=== PATIENT | female | born 1995 | race Caucasian/White ===

== ENCOUNTER 2020-01-03 08:29 | Outpatient (CLI) | payer OTHER, SELFPAY ==
--- NOTE | 2020-01-03 08:48 | EST_ITS ---
Patient Info Name: Carolina Albright Age: 24 years : 1995 Gender: Female Ht: 68 in Wt: 195 lbs BSA: 2.08 m2 Exam Date: 01/03/2020 9:14 AM Exam Location: [facility] Patient Status: Outpatient Admit Date: 01/03/2020 Staff Ordering Physician: Aime Castellanos DO Ethnic Studies Professor: Jake Davis RDCS, RT Attending Provider: Aime Castellanos DO Exercise Technologist: Darling Allen RDCS Exercise Physician: Aime Castellanos DO Exam Type: CA stress echo Study Info Indications R07.9 - Chest pain, unspecified Treadmill exercise stress echocardiogram is performed. Summary 1. 1. Negative Selvin exercise stress test for ischemic ST changes by ECG criteria. 2. 2. Poor functional capacity, achieving 4 METs of workload. 3. 3. Baseline sinus tachycardia with rapid HR response to exercise. 4. 4. Appropriate HR recovery at 1 minute post exercise. 5. 5. Negative stress echocardiogram for ischemia by wall motion analysis. 6. 6. Patient informed of the above results. Stress Echo Findings Left Ventricle Appropriate increase in LV endocardial thickening with systole. Appropriate augmentation of contractility with systole. No wall motion abnormality. Left Ventricle Normal LV systolic function, no wall motion abnormality. Protocol: Selvin Stress ECG Details Stage: REST Duration (min): 8 min : 30 sec Speed (mph): 0.0 Grade (%): 0 HR (bpm): 109 SBP (mmHg): 114 DBP (mmHg): 81 METS: --- Stage: REST Duration (min): 14 min : 26 sec Speed (mph): 0.0 Grade (%): 0 HR (bpm): 128 SBP (mmHg): 114 DBP (mmHg): 81 METS: --- Stage: STAGE 1 Duration (min): 1 min : 0 sec Speed (mph): 1.7 Grade (%): 10 HR (bpm): 176 SBP (mmHg): 114 DBP (mmHg): 81 METS: --- Stage: STAGE 1 Duration (min): 2 min : 0 sec Speed (mph): 1.7 Grade (%): 10 HR (bpm): 182 SBP (mmHg): 114 DBP (mmHg): 81 METS: --- Stage: STAGE 1 Duration (min): 3 min : 0 sec Speed (mph): 1.7 Grade (%): 10 HR (bpm): 189 SBP (mmHg): 157 DBP (mmHg): 76 METS: --- Stage: RECOVERY Duration (min): 0 min : 59 sec Speed (mph): 0.0 Grade (%): 0 HR (bpm): 148 SBP (mmHg): 188 DBP (mmHg): 71 METS: --- Stage: RECOVERY Duration (min): 1 min : 59 sec Speed (mph): 0.0 Grade (%): 0 HR (bpm): 129 SBP (mmHg): 188 DBP (mmHg): 71 METS: --- Stage: RECOVERY Duration (min): 2 min : 59 sec Speed (mph): 0.0 Grade (%): 0 HR (bpm): 120 SBP (mmHg): 194 DBP (mmHg): 65 METS: --- Stage: RECOVERY Duration (min): 3 min : 59 sec Speed (mph): 0.0 Grade (%): 0 HR (bpm): 116 SBP (mmHg): 194 DBP (mmHg): 65 METS: --- Stage: RECOVERY Duration (min): 4 min : 59 sec Speed (mph): 0.0 Grade (%): 0 HR (bpm): 115 SBP (mmHg): 177 DBP (mmHg): 66 METS: --- Stage: RECOVERY Duration (min): 5 min : 59 sec Speed (mph): 0.0 Grade (%): 0 HR (bpm):
== END 2020-01-03 08:30 | disposition home or self-care (01) ==
PROVIDERS: PCP Family Medicine; Visit Provider Internal Medicine Cardiovascular Disease
DX: R07.9 Chest pain, unspecified (principal)
CPT/HCPCS: 93351

== ENCOUNTER 2021-03-05 08:35 | Outpatient (CLI) | payer OTHER, SELFPAY ==
[2021-03-05 19:05] LABS: Alanine Aminotransferase 14 U/L (4-35); Albumin Level 4.7 g/dL (3.5-5.1); Alkaline Phosphatase 79 U/L (38-126); Anion Gap 10 mmol/L (8-16); Aspartate Amino Transferase 19 U/L (14-36); Bilirubin,Total 0.4 mg/dL (0.2-1.3); Blood Urea Nitrogen 10 mg/dL (7-17); Calcium 9.6 mg/dL (8.4-10.2); Carbon Dioxide 26 mmol/L (22-30); Chloride 103 mmol/L (98-107); Cholesterol 227 mg/dL (0-200); Estimated Glomerular Filt Rate > 60; Glucose 61 mg/dL (65-110); HDL Direct 63 mg/dL; Potassium 4.5 mmol/L (3.4-5.0); Sodium 139 mmol/L (137-145); Triglycerides 59 mg/dL (<150)
[2021-03-05 19:15] LABS: LDL Cholesterol Direct 160 mg/dL
[2021-03-05 19:21] LABS: Free T4 Free Thyroxine 1.32 ng/mL (0.78-2.19)
[2021-03-05 19:36] LABS: Creatinine Urine 15.5 mg/dL
[2021-03-05 20:49] LABS: Microalbumin Urine Random < 6.0 mg/L (0-16.7)
== END 2021-03-05 08:36 | disposition home or self-care (01) ==
LOC: ANHBWCLAB 08:38
PROVIDERS: PCP Family Medicine; Referring Provider Internal Medicine Cardiovascular Disease; Visit Provider Nurse Practitioner Family
DX: E10.65 Type 1 diabetes mellitus with hyperglycemia (principal); E78.5 Hyperlipidemia, unspecified; E66.9 Obesity, unspecified
CPT/HCPCS: 36415; 80053; 80061; 82043; 82607; 84439; 84443

== ENCOUNTER → 2021-03-29 01:25 | Outpatient (CLI) | payer OTHER, SELFPAY ==
[2021-03-29 13:19] LABS: Influenza Control Positive
[2021-03-29 21:22] LABS: SARS-CoV-2 RNA PCR Positive
== END ==
PROVIDERS: PCP Family Medicine; Visit Provider Family Medicine
DX: R05.9 Cough, unspecified (principal); R68.89 Other general symptoms and signs; J02.9 Acute pharyngitis, unspecified; U07.1 COVID-19
CPT/HCPCS: 87804; C9803; U0003; U0005

== ENCOUNTER 2021-05-12 08:28 | Outpatient (CLI) | payer OTHER, SELFPAY ==
[2021-05-12 18:55] LABS: Add Urine Microscopic? YES; Appearance Urine Cloudy (Clear); Bilirubin Urine Negative (Negative); Blood Urine 3+ (Negative); Color Urine Yellow (Yellow); Glucose Urine UA 3+ mg/dL (Negative); Ketones Urine Negative (Negative); Leukocyte Esterase Ur Negative LEU/UL (NEGATIVE); Mucus Urine Few /lpf; Nitrate Urine Negative (Negative); Protein Urine 1+ mg/dL (Negative); RBC Urine >75 /hpf (0-2); Specific Grav Ur 1.018 (1.001-1.035); Squamous Epithelial Cell Urine Many /hpf (Few); Urobilinogen Urine Negative mg/dL (<2.0)
== END 2021-05-12 08:29 | disposition home or self-care (01) ==
LOC: ANHBWCLAB 08:31
PROVIDERS: PCP Family Medicine; Visit Provider Family Medicine
DX: D72.829 Elevated white blood cell count, unspecified (principal)
CPT/HCPCS: 81001; 87086; 87088

== ENCOUNTER 2021-07-21 08:44 | Outpatient (CLI) | payer OTHER, SELFPAY ==
[2021-07-21 18:54] LABS: Hematocrit 42.3 % (37.0-47.0); Hemoglobin 13.5 g/dL (12.0-15.0); Mean Corpuscular HGB Conc 31.9 g/dl (32-36); Mean Corpuscular Hemoglobin 29.2 pg (26-34); Mean Corpuscular Volume 91.4 fl (80-100); Mean Platelet Volume 9.6 fl (7.4-10.4); Platelet Count Result 512 k/mm3 (150-375); Red Blood Count 4.63 M/mm3 (4.2-5.4); Red Cell Distribution Width 13.2 % (11.5-14.5); White Blood Count 10.2 K/mm3 (4.5-10.0)
[2021-07-21 19:09] LABS: Add Urine Microscopic? YES; Appearance Urine Cloudy (Clear); Bacteria Urine Trace /hpf; Bilirubin Urine Negative (Negative); Blood Urine Negative (Negative); Color Urine Yellow (Yellow); Glucose Urine UA 2+ mg/dL (Negative); Ketones Urine Negative (Negative); Leukocyte Esterase Ur Negative LEU/UL (Negative); Mucus Urine Few /lpf; Nitrate Urine Negative (Negative); Protein Urine Negative (Negative); RBC Urine 0-2 /hpf (0-2); Specific Grav Ur 1.024 (1.001-1.035); Squamous Epithelial Cell Urine Occasional /hpf (Few); Urobilinogen Urine Negative mg/dL (<2.0); WBC Urine 0-3 /hpf
[2021-07-21 19:19] LABS: Alanine Aminotransferase 12 U/L (4-35); Albumin Level 4.9 g/dL (3.5-5.1); Alkaline Phosphatase 85 U/L (38-126); Anion Gap 12 mmol/L (8-16); Aspartate Amino Transferase 18 U/L (14-36); Bilirubin,Total 0.7 mg/dL (0.2-1.3); Blood Urea Nitrogen 14 mg/dL (7-17); Calcium 9.3 mg/dL (8.4-10.2); Carbon Dioxide 27 mmol/L (22-30); Chloride 97 mmol/L (98-107); Cholesterol 252 mg/dL (0-200); Estimated Glomerular Filt Rate > 60; Glucose 168 mg/dL (65-110); HDL Direct 46 mg/dL; Potassium 4.6 mmol/L (3.4-5.0); Sodium 136 mmol/L (137-145); Triglycerides 185 mg/dL (<150)
[2021-07-21 19:31] LABS: LDL Cholesterol Direct 143 mg/dL
== END 2021-07-21 08:45 | disposition home or self-care (01) ==
LOC: ANHBWCLAB 08:45
PROVIDERS: PCP Family Medicine; Visit Provider Internal Medicine Cardiovascular Disease
DX: E78.5 Hyperlipidemia, unspecified (principal); R30.0 Dysuria; R39.9 Unspecified symptoms and signs involving the genitourinary system
CPT/HCPCS: 36415; 80053; 80061; 81001; 85027; 87086; 87088

== ENCOUNTER 2021-09-29 09:42 | Outpatient (CLI) | payer OTHER, SELFPAY ==
[2021-09-29 19:46] LABS: Creatinine Urine 205.4 mg/dL
[2021-09-29 19:51] LABS: MALB Creatinine Ratio 50.8 mg/g (0-30); Microalbumin Urine Random 104.3 mg/L (0-16.7)
[2021-09-29 20:52] LABS: Free T4 Free Thyroxine 1.23 ng/mL (0.78-2.19)
== END 2021-09-29 09:43 | disposition home or self-care (01) ==
PROVIDERS: PCP Family Medicine; Visit Provider Nurse Practitioner Family
DX: E10.65 Type 1 diabetes mellitus with hyperglycemia (principal); K86.81 Exocrine pancreatic insufficiency; K31.89 Other diseases of stomach and duodenum; K31.84 Gastroparesis
CPT/HCPCS: 36415; 82043; 84439; 84443

== ENCOUNTER 2022-02-13 09:33 | Emergency (ER) | payer OTHER, SELFPAY ==
[2022-02-13 09:40] VITALS: BP 143/81; PULSE 112; RESP 20; TEMP 37.1; O2SAT 98
--- NOTE | 2022-02-13 11:15 | ED.SKABFB ---
HPI - Skin/Abscess/Foreign Bdy General Chief complaint: Skin/Abscess/Foreign Body Stated complaint: Burn/Finger Time Seen by Provider: 02/13/22 11:15 Source: patient, RN notes reviewed and old records reviewed Mode of arrival: ambulatory Limitations: no limitations History of Present Illness HPI narrative: 26 year old female presents to [facility] care with complaints of having 2 week burn to her right index finger with concern for infection to finger today. Patient reports that she has been seeing the wound care clinic for evaluation and treatment. Patient reports that when she changed the dressing today the dressing stuck and some skin pulled off of wound area of dorsal right index finger. Patient reports increased redness and pain to the wound today. Mild swelling of dorsal right index finger no drainage noted,appears tissue is scabbing with no acute warmth. Patient reports that she completed Keflex 2 days ago, yana any fevers, chills or sweats, is Type I diabetic. MD complaint: other (burn to right index finger with patient voicing concern of infection.) Onset (ago): week(s) (initial burn 2 weeks ago) Location: R hand (right dorsal index finger) Severity scale (1-10): 5 Treatments prior to arrival: prescription analgesic and other (cleansed with antibacterial soap and prescribed dressings) Related Data Home Medications Medication Instructions Recorded Confirmed sertraline 100 mg tablet (Zoloft) 200 mg PO DAILY 04/27/20 02/11/22 gabapentin 300 mg capsule 300 mg PO TID 05/12/21 02/11/22 calcium carbonate 200 mg calcium 200 mg PO BID 09/28/21 02/11/22 (500 mg) chewable tablet (Tums) Allergies Allergy/AdvReac Type Severity Reaction Status Date / Time codeine Allergy Unknown Unknown Verified 02/11/22 09:41 insulin glargine AdvReac Unknown severe Verified 02/11/22 09:41 [From Lantus U-100 Insulin] bruising Review of Systems Review of Systems: CONSTITUTIONAL: Denies fever, chills, or sweats. CARDIOVASCULAR: Denies chest pain, palpitations, or edema. RESPIRATORY: Denies cough or dyspnea. SKIN: Reports increasing redness swelling and pain to burn of dorsal aspect of right index finger, concern for infection MUSCULOSKELETAL: Denies joint pain or myalgia. NEUROLOGIC: Denies headache, numbness, or weakness. 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 Diabetic ketoacidosis Gastric dysmotility GERD (gastroesophageal reflux disease) H/O nephrolithotomy with removal of calculi H/O renal calculi Hepatomegaly Hyperlipidemia, unspecified (03/12/18) Long-term insulin use Nausea Nausea & vomiting Nexplanon in place Noncompliance Paronychia of left middle finger Thoracic sprain Type 1 diabetes mellitus with hyperglycemia, with long-term current use of insulin Type 1 diabetes mellitus without complication Surgical History Surgical History H/O endoscopy Family History Family History Grandparent Diabetes mellitus Family history of cardiovascular disease Cerebrovascular accident Family history of Alzheimer's disease Family history of lung cancer Mother Family history of mental disorder Depression Family history of multiple sclerosis Family history of cardiovascular disease Family history of chronic obstructive pulmonary disease Father Hypertension Other Family history of hearing loss Family history of malignant neoplasm Family history of obesity Family history of osteoporosis Social History Social History (R
== END 2022-02-13 11:55 | disposition home or self-care (01) ==
PROVIDERS: Emergency Provider Registered Nurse; PCP Family Medicine
DX: T23.221A Burn of second degree of single right finger (nail) except thumb, initial encounter (principal); X08.8XXA Exposure to other specified smoke, fire and flames, initial encounter; K21.9 Gastro-esophageal reflux disease without esophagitis; E10.9 Type 1 diabetes mellitus without complications; Z79.4 Long term (current) use of insulin; E78.5 Hyperlipidemia, unspecified
CPT/HCPCS: 99213; G0463

== ENCOUNTER 2022-03-03 07:27 | Outpatient (RCR) | payer OTHER, SELFPAY ==
[2022-02-04 09:07] VITALS: BMI 41.1
--- NOTE | 2022-02-14 07:48 | PCWOUND ---
TERRELL NOTE Patient called stating that she was seen in an urgent care over the weekend for her finger. She feels that it is infected, states she had to beg and cry for the urgent care to give her antibiotics and they told her to contact the wound center to be seen. Asked patient why she felt her finger was infected, patient states that it looks swollen and red and there's wetness like pus. Tried to explain to patient, that we at the wound clinic are just nurses and can't treat an infection in that sense, that if she truly thought there was an infection she needed to be seen at the ER or go see her PCP. Patient started crying and asking why everyone keeps passing her off and all she wants is to be healed, before I could explain any further, she hung up on me.
== END 2022-04-25 09:48 | disposition home or self-care (01) ==
LOC: ANHWOC 07:27
PROVIDERS: PCP Family Medicine; Visit Provider Family Medicine
DX: T23.0 Burn of unspecified degree of wrist and hand (principal); T23.00 Burn of unspecified degree of hand, unspecified site
CPT/HCPCS: 99211; 99213; G0463

== ENCOUNTER 2022-03-15 09:30 | Outpatient (RCR) | payer OTHER, SELFPAY ==
--- NOTE | 2022-02-22 09:25 | OTOPEVAL1 ---
Assessment and note entered by ERASTO Coleman/Leon Evaluation Information Assessment Status Evaluation Diagnosis Burn to R UE digits 1-3 Onset 01/30/2022 Subjective Information Patient presents to Outpatient OT following a second degree partial thickness burn to dorsal aspect of digits 1-3 on R hand. Index finger has experienced the worst of the burn over the dorsal aspect of the PIP joint. Patient reports since burning finger has gone to wound care. Patient report it has been difficult to complete daily tasks and use dominant R hand due to burn on index finger. Reported Pain Level Pain Score 4: Self Report Assessment OT Clinical Summary Carolina is a 26 year old R hand dominant female who presents to Outpatient OT following a 2nd degree burn to R digits 1-3 with digit 2 having the worst burn to dorsal aspect of PIP joint. Digits 1 and 3 are well healed at this time, no limitations. Patient has decreased air brake adjuster strength of R UE, decreased active ROM to digit 2. Patient would benefit from skilled OT for HEP instruction, UE exercise, manual therapy, modalities as indicated in order to optimize functional use of dominant R UE. Plan of Care Interventions Therapeutic Exercise,Manual Therapy,Therapeutic Activities,Hot Pack/Cold Pack,Ultrasound OT Services Indicated Yes These treatments will address the objective and functional deficits as defined above. The patient will be advanced safely and appropriately in order for the patient to progress towards his/her prior level of function. Additional exercises will be introduced and as well as a comprehensive home exercise program upon discharge, if needed, ?to ensure carryover of functional gains achieved in the clinic. This treatment plan has been reviewed and agreement upon by the patient.
--- NOTE | 2022-03-15 10:02 | OTOPDC ---
Assessment and note entered by Nery Valladares OTR/Leon Evaluation Information Assessment Status Discharge Diagnosis Burn to R UE digits 1-3 Subjective Information Patient presents to Outpatient OT following a second degree partial thickness burn to dorsal aspect of digits 1-3 on R hand. Index finger has experienced the worst of the burn over the dorsal aspect of the PIP joint. Since initial evaluation patient reports has completed HEP at home for the past 2 weeks and finger feels back to normal at this time. Reported Pain Level Pain Score 0: Self Report Assessment OT Clinical Summary Carolina is a 26 year old R hand dominant female who presents to Outpatient OT for re-evaluation following a 2nd degree burn to R digits 1-3 with digit 2 having the worst burn to dorsal aspect of PIP joint. Since initial evaluation, patient has completed HEP consistently and reports now has ROM and strength in hand back to normal. Patient demonstrated textile technical officer/fiore pinch strength WNL and active ROM of digit 2 WNL. Patient is to be discharged from skilled OT today independent with HEP. Patient is agreeable to plan. Plan of Care OT Services Indicated No
== END 2022-03-15 11:00 | disposition home or self-care (01) ==
LOC: ANHOT 09:30
PROVIDERS: PCP Family Medicine; Visit Provider Family Medicine
DX: T23.0 Burn of unspecified degree of wrist and hand (principal); T23.00 Burn of unspecified degree of hand, unspecified site
CPT/HCPCS: 97110; 97165

== ENCOUNTER 2022-03-29 11:27 | Outpatient (CLI) | payer OTHER, SELFPAY ==
--- NOTE | ~2022-03-29 | XR_ITS ---
Supine and upright views of the abdomen Clinical history: Constipation Findings: Bowel gas pattern is nonspecific. Moderate stool noted. No evidence for obstruction or free air. No abnormal mass lesion or calcification is seen. Osseous structures are intact. Impression: Moderate stool. Reviewed, dictated and finalized at [facility]. AGE BATTERY INSPECTOR AND TESTER Impression: Moderate stool.
[2022-03-29 18:57] LABS: Add Urine Microscopic? YES; Appearance Urine Slightly Cloudy (Clear); Bilirubin Urine Negative (Negative); Blood Urine Negative (Negative); Color Urine Yellow (Yellow); Glucose Urine UA Negative (Negative); Ketones Urine Trace mg/dL (Negative); Leukocyte Esterase Ur Trace LEU/UL (NEGATIVE); Nitrate Urine Negative (Negative); Protein Urine Negative (Negative); Specific Grav Ur 1.025 (1.001-1.035); Urobilinogen Urine 0.2 mg/dL (<2.0)
[2022-03-29 19:00] LABS: Bacteria Urine 2+ /hpf; Mucus Urine Moderate /lpf; RBC Urine 0-2 /hpf (0-2); Squamous Epithelial Cell Urine Moderate /hpf (Few)
[2022-03-29 21:58] LABS: Alanine Aminotransferase 17 U/L (6-35); Albumin Level 4.5 g/dL (3.5-5.1); Alkaline Phosphatase 103 U/L (38-126); Anion Gap 8 mmol/L (8-16); Aspartate Amino Transferase 45 U/L (14-36); Bilirubin,Total 0.4 mg/dL (0.2-1.3); Blood Urea Nitrogen 9 mg/dL (7-17); Calcium 8.9 mg/dL (8.4-10.2); Carbon Dioxide 27 mmol/L (22-30); Chloride 101 mmol/L (98-107); Estimated Glomerular Filt Rate > 60; Glucose 134 mg/dL (65-110); Potassium 4.1 mmol/L (3.4-5.0); Sodium 136 mmol/L (137-145)
== END 2022-03-29 11:28 | disposition home or self-care (01) ==
LOC: ANHBWCLAB 11:28
PROVIDERS: PCP Family Medicine; Visit Provider Family Medicine
DX: M54.9 Dorsalgia, unspecified (principal); R11.10 Vomiting, unspecified; R34 Anuria and oliguria; K59.00 Constipation, unspecified
CPT/HCPCS: 36415; 74019; 80053; 81001; 87086

== ENCOUNTER 2022-07-06 08:55 | Outpatient (CLI) | payer OTHER, SELFPAY ==
[2022-07-06 18:04] LABS: Basophils Absolute Auto 0.1 K/mm3 (0.0-0.1); Basophils Percent Auto 1.3 % (0.2-1.2); Eosinophils Absolute Auto 0.7 K/mm3 (0-0.3); Hematocrit 41.6 % (37.0-47.0); Hemoglobin 12.7 g/dL (12.0-15.0); Immature Granulocyte Absolute 0.03 K/mm3 (0.00-0.031); Immature Granulocyte Percent A 0.3 % (0-0.5); Lymphocytes Absolute Auto 2.39 K/mm3 (0.9-3.2); Lymphocytes Percent Auto 25.8 % (18.3-44.2); Mean Corpuscular HGB Conc 30.5 g/dl (32-36); Mean Corpuscular Hemoglobin 27.4 pg (26-34); Mean Corpuscular Volume 89.7 fl (80-100); Mean Platelet Volume 8.9 fl (7.4-10.4); Monocytes Absolute Auto 0.6 K/mm3 (0.1-0.6); Monocytes Percent Auto 6.4 % (2.6-8.5); Neutrophils Absolute Auto 5.5 K/mm3 (1.3-6.7); Neutrophils Percent Auto 59.2 % (45.5-73.1); Platelet Count Result 529 k/mm3 (150-375); Red Blood Count 4.64 M/mm3 (4.2-5.4); Red Cell Distribution Width 13.1 % (11.5-14.5); White Blood Count 9.3 K/mm3 (4.5-10.0)
== END 2022-07-06 08:56 | disposition home or self-care (01) ==
PROVIDERS: PCP Family Medicine; Visit Provider Family Medicine
DX: I10 Essential (primary) hypertension (principal); K21.9 Gastro-esophageal reflux disease without esophagitis; F41.9 Anxiety disorder, unspecified; F31.9 Bipolar disorder, unspecified; E78.5 Hyperlipidemia, unspecified; E66.9 Obesity, unspecified; E10.65 Type 1 diabetes mellitus with hyperglycemia
CPT/HCPCS: 36415; 85025

== ENCOUNTER 2022-09-28 08:50 | Outpatient (CLI) | payer OTHER, SELFPAY ==
--- NOTE | ~2022-09-28 | XR_ITS ---
Right Shoulder Technique: AP and scapular Y views were obtained. Clinical History: Pain Findings: No fracture or dislocation is seen. Osseous alignment is anatomic. The glenohumeral and acr omioclavicular joint spaces are preserved. Soft tissues are unremarkable. Impression: Unremarkable right shoulder radiographs. Reviewed, dictated and finalized at [facility]. Impression: Unremarkable right shoulder radiographs.
--- NOTE | ~2022-09-28 | XR_ITS ---
Cervical Spine: AP, lateral, open-mouth views Clinical History: Pain Findings: The normal lordotic curve is maintained. No fracture identified. 4 mm anterolisthesis of C5 over C6 present. The intervertebral disc spaces are well maintained. Pre-vertebral soft tissues are unremarkable. Impression: 4 mm anterolisthesis of C5 over C6. Reviewed, dictated and finalized at [facility]. Impression: 4 mm anterolisthesis of C5 over C6.
== END 2022-09-28 08:51 | disposition home or self-care (01) ==
PROVIDERS: PCP Family Medicine; Visit Provider Family Medicine
DX: M54.2 Cervicalgia (principal); M25.511 Pain in right shoulder
CPT/HCPCS: 72040; 73030

== ENCOUNTER 2022-12-01 07:26 | Outpatient (CLI) | payer OTHER, SELFPAY ==
[2022-12-01 19:41] LABS: Appearance Urine Cloudy (Clear); Bacteria Urine 1+ /hpf; Bilirubin Urine Negative (Negative); Blood Urine Negative (Negative); Color Urine Yellow (Yellow); Glucose Urine UA 1+ mg/dL (Negative); Ketones Urine Trace mg/dL (Negative); Leukocyte Esterase Ur 2+ LEU/UL (NEGATIVE); Mucus Urine Present /lpf; Need Manual Microscopic Reviewed; Nitrate Urine Negative (Negative); Protein Urine Trace mg/dL (Negative); RBC Urine 0-2 /hpf (0-2); Specific Grav Ur 1.024 (1.001-1.035); Squamous Epithelial Cell Urine Moderate /hpf (Few); Urobilinogen Urine 0.2 mg/dL (<2.0); pH Urine 5.5 (5.0-9.0)
[2022-12-01 19:43] LABS: Add Urine Microscopic? YES
== END 2022-12-01 07:27 | disposition home or self-care (01) ==
LOC: ANHBWCLAB 07:27
PROVIDERS: PCP Family Medicine; Visit Provider Family Medicine
DX: N30.90 Cystitis, unspecified without hematuria (principal); R56.9 Unspecified convulsions; F31.9 Bipolar disorder, unspecified; F41.9 Anxiety disorder, unspecified
CPT/HCPCS: 81001; 87086; 87088

== ENCOUNTER 2023-01-09 08:31 | Outpatient (CLI) | payer OTHER, SELFPAY ==
[2023-01-09 19:34] LABS: MALB Creatinine Ratio 20.1 mg/g (0-30); Microalbumin Urine Random 34.2 mg/L (0-16.7)
[2023-01-09 19:56] LABS: Cholesterol 257 mg/dL (0-200); HDL Direct 44 mg/dL; Triglycerides 184 mg/dL (<150)
[2023-01-09 20:06] LABS: LDL Cholesterol Direct 151 mg/dL
== END 2023-01-09 08:32 | disposition home or self-care (01) ==
PROVIDERS: PCP Family Medicine; Visit Provider Internal Medicine Endocrinology, Diabetes & Metabolism
DX: E10.65 Type 1 diabetes mellitus with hyperglycemia (principal); Z46.81 Encounter for fitting and adjustment of insulin pump
CPT/HCPCS: 36415; 80061; 82043; 84443

== ENCOUNTER 2023-04-07 14:29 | Outpatient (CLI) | payer OTHER, SELFPAY ==
--- NOTE | ~2023-04-07 | US_ITS ---
EXAMINATION: US pelvic complete DATE: 04/07/2023 15:18 INDICATION: R19.00 - Intra-abdominal and pelvic swelling, mass and norberto... TECHNIQUE: Multiple transabdominal sonographic images of the pelvis were obtained. COMPARISON: 10/25/2011 FINDINGS: Uterus: 7.8 x 2.5 x 3.7 cm. Anteverted. Endometrial complex measures 14 mm. Right Ovary: 4.1 x 1.9 x 3.1 cm. Vascular flow is present. 2.2 cm simple cyst. Left Ovary: 2.8 x 1.4 x 2.0 cm. Vascular flow is present. No adnexal mass. There is no free fluid in the pelvis. IMPRESSION: Normal pelvic sonogram findings. Reviewed, dictated and finalized at location K. EM ARCHIVE ANALYST
== END 2023-04-07 14:30 | disposition home or self-care (01) ==
LOC: ANHIMG 14:31
PROVIDERS: PCP Family Medicine; Visit Provider Registered Nurse
DX: R19.00 Intra-abdominal and pelvic swelling, mass and lump, unspecified site (principal)
CPT/HCPCS: 76856

== ENCOUNTER 2023-04-18 07:49 | Outpatient (CLI) | payer OTHER, SELFPAY ==
--- NOTE | ~2023-04-18 | NM_ITS ---
EXAM: NM gastric emptying study DATE: 04/18/2023 13:17 OFFICE SPECIALIST INDICATION: Nausea. Reflux. Regurgitation. TECHNIQUE: A gastric emptying study was performed using the methodology of Kelvin BOSWELL, et al. J Nucl Med 2007; 48:568-572. The patient was given a meal consisting of 2 scrambled eggs labeled with 0.98 mCi Tc-99m sulfur colloid, 2 slices of toast, two packages of jam, and approximately 120 mL of water. Simultaneous anterior and posterior 1-min images of the abdomen were obtained with the patient supin e at multiple time points over a total period of 4 hours. The geometric mean of anterior and posterio r views was determined, and the percentage retention was calculated for each time point. COMPARISON: None. FINDINGS: Gastric retention of the radiotracer-labeled meal was 44%, 25%, and 3% at the 1-hour, 2-ho ur, and 4-hour time points, respectively. With this technique, apparent rapid gastric emptying is sug gested by <30% gastric retention at 1 hour. Delayed gastric emptying is defined by gastric retention of >90% at 1 hour, >60% retention at 2 hours, or >10% retention at 4 hours. IMPRESSION: 1. Normal gastric emptying. Reviewed, dictated and finalized at location L. CE SPECIALIST IMPRESSION: 1. Normal gastric emptying.
== END 2023-04-18 07:50 | disposition home or self-care (01) ==
PROVIDERS: PCP Family Medicine; Visit Provider Nurse Practitioner
DX: R11.0 Nausea (principal); E10.65 Type 1 diabetes mellitus with hyperglycemia; K21.9 Gastro-esophageal reflux disease without esophagitis
CPT/HCPCS: 78264; A9541

== ENCOUNTER 2023-07-04 10:58 | Outpatient (CLI) | payer OTHER, SELFPAY ==
[2023-07-04 11:53] LABS: Monoscreen Negative (Negative); Negative Monotest Control Negative (Negative); Positive Monotest Control Positive (Positive)
[2023-07-04 12:02] LABS: Strep Group A RT-PCR NOT DETECTED (Negative)
[2023-07-04 12:13] LABS: Influenza A QL RT-PCR Negative (Negative); Influenza B QL RT-PCR Negative (Negative); RSV RNA, RT-PCR Negative (Negative); SARS-CoV-2 RNA PCR Negative (Negative)
== END 2023-07-04 10:59 | disposition home or self-care (01) ==
LOC: ANHLAB 10:59
PROVIDERS: PCP Family Medicine; Visit Provider Nurse Practitioner Family
DX: J02.9 Acute pharyngitis, unspecified (principal); Z20.822 Contact with and (suspected) exposure to COVID-19
CPT/HCPCS: 36415; 86308; 87637; 87651

== ENCOUNTER 2023-08-17 10:11 | Outpatient (CLI) | payer OTHER, SELFPAY ==
[2023-08-17 19:50] LABS: Hematocrit 43.3 % (37.0-47.0); Hemoglobin 13.3 g/dL (12.0-15.0); Mean Corpuscular HGB Conc 30.7 g/dl (32-36); Mean Corpuscular Hemoglobin 28.7 pg (26-34); Mean Corpuscular Volume 93.3 fl (80-100); Mean Platelet Volume 9.3 fl (7.4-10.4); Platelet Count Result 420 k/mm3 (150-375); Red Blood Count 4.64 M/mm3 (4.2-5.4); Red Cell Distribution Width 13.2 % (11.5-14.5); White Blood Count 5.4 K/mm3 (4.5-10.0)
[2023-08-17 20:03] LABS: Alanine Aminotransferase 149 U/L (6-35); Albumin Level 4.7 g/dL (3.5-5.1); Alkaline Phosphatase 80 U/L (38-126); Anion Gap 8 mmol/L (4-12); Aspartate Amino Transferase 123 U/L (14-36); Bilirubin,Total 0.6 mg/dL (0.2-1.3); Blood Urea Nitrogen 12 mg/dL (7-17); Calcium 9.3 mg/dL (8.4-10.2); Carbon Dioxide 26 mmol/L (22-30); Chloride 103 mmol/L (98-107); Cholesterol 252 mg/dL (0-200); Estimated Glomerular Filt Rate > 60; Glucose 87 mg/dL (65-110); HDL Direct 52 mg/dL; Potassium 5.2 mmol/L (3.4-5.0); Sodium 137 mmol/L (137-145); Triglycerides 107 mg/dL (<150)
[2023-08-17 20:13] LABS: LDL Cholesterol Direct 148 mg/dL
[2023-08-17 20:21] LABS: Creatinine Urine 60.1 mg/dL
[2023-08-17 20:25] LABS: MALB Creatinine Ratio 10.6 mg/g (0-30); Microalbumin Urine Random 6.4 mg/L (0-16.7)
[2023-08-17 20:45] LABS: Free T4 Free Thyroxine 1.13 ng/mL (0.78-2.19); Vitamin D 25 Hydroxy 15.8 ng/mL
== END 2023-08-17 10:12 | disposition home or self-care (01) ==
LOC: ANHBWCLAB 10:14
PROVIDERS: PCP Family Medicine; Visit Provider Nurse Practitioner Family
DX: E66.01 Morbid (severe) obesity due to excess calories (principal); E78.5 Hyperlipidemia, unspecified; E11.42 Type 2 diabetes mellitus with diabetic polyneuropathy; F41.9 Anxiety disorder, unspecified; G40.909 Epilepsy, unspecified, not intractable, without status epilepticus; M54.2 Cervicalgia; R06.6 Hiccough
CPT/HCPCS: 36415; 80053; 80061; 82043; 82306; 82607; 84439; 84443; 85027

== ENCOUNTER 2023-08-30 08:32 | Outpatient (CLI) | payer OTHER, SELFPAY ==
[2023-08-30 20:48] LABS: Alanine Aminotransferase 52 U/L (6-35); Albumin Level 4.6 g/dL (3.5-5.1); Alkaline Phosphatase 72 U/L (38-126); Anion Gap 9 mmol/L (4-12); Aspartate Amino Transferase 56 U/L (14-36); Bilirubin,Total 0.7 mg/dL (0.2-1.3); Blood Urea Nitrogen 11 mg/dL (7-17); Calcium 9.4 mg/dL (8.4-10.2); Carbon Dioxide 30 mmol/L (22-30); Chloride 102 mmol/L (98-107); Estimated Glomerular Filt Rate > 60; Glucose 57 mg/dL (65-110); Sodium 141 mmol/L (137-145)
[2023-08-30 21:19] LABS: HAV RESULT Negative (Negative); Hepatitis B Core IgM Result Negative (Negative)
[2023-08-30 21:32] LABS: Hepatitis C Virus Antibody Negative (Negative)
[2023-08-30 22:05] LABS: Hepatitis B Surface Antigen Negative (Negative)
== END 2023-08-30 08:33 | disposition home or self-care (01) ==
LOC: ANHBWCLAB 08:33
PROVIDERS: PCP Family Medicine; Visit Provider Family Medicine
DX: R74.8 Abnormal levels of other serum enzymes (principal); E87.5 Hyperkalemia; G40.909 Epilepsy, unspecified, not intractable, without status epilepticus
CPT/HCPCS: 36415; 80048; 80074; 80076; 82977

== ENCOUNTER 2023-09-07 08:30 | Outpatient (CLI) | payer OTHER, SELFPAY ==
--- NOTE | ~2023-09-07 | US_ITS ---
US pelvic complete w TV Ordering provider: Modesto Maya MD History: . 6 month f/u . Comparison: April 07, 2023 Technique: Transabdominal and endovaginal ultrasound of the pelvis (Doppler ultrasound interrogation techniques used as needed for this exam.) FINDINGS: CERVIX: Normal. UTERUS: Measures 7x 2.8x 4 cm in length which is within normal limits and is anteverted. No myometri al masses. ENDOMETRIUM: Normal in thickness measuring 2.6 mm. (Note: the premenopausal endometrium may measure u p to 16 mm when in the secretory phase.) No endometrial masses, cysts or fluid. CUL DE SAC: No free fluid. RIGHT OVARY: Normal in size measuring 2.7x 2.2x 1.8 Normal echotexture. Doppler vascular flow present . LEFT OVARY: Normal in size measuring 2.7x 3.9x 2.4 cm Normal echotexture. Doppler vascular flow prese nt. ADNEXA: Left adnexal hypoechoic area with septations which measures 2.4 x 1.6 x 1.6 cm most likely co llection of follicles in the left ovary.. Follow-up advised. IMPRESSION: Left adnexal hypoechoic area with septations which measures 2.4 x 1.6 x 1.6 cm most likely collection of follicles in the left ovary.. Clinical correlation and Follow-up advised. Otherwise, normal pelvi c ultrasound. Reviewed, dictated and finalized at location A. IMPRESSION: Left adnexal hypoechoic area with septations which measures 2.4 x 1.6 x 1.6 cm most likely collection of follicles in the left ovary.. Clinical correlation an d Follow-up advised. Otherwise, normal pelvic ultrasound.
== END 2023-09-07 08:31 | disposition home or self-care (01) ==
LOC: ANHIMG 08:31
PROVIDERS: PCP Family Medicine; Visit Provider Obstetrics & Gynecology
DX: N83.201 Unspecified ovarian cyst, right side (principal)
CPT/HCPCS: 76830; 76856

== ENCOUNTER 2023-09-18 08:07 | Outpatient (CLI) | payer OTHER, SELFPAY ==
--- NOTE | ~2023-09-18 | US_ITS ---
Limited Abdominal Sonogram: Real-time sonographic imaging of the right upper quadrant was performed. Clinical History: Abnormal serum enzyme levels Findings: The liver appears normal with no evidence of mass lesion or bile duct dilatation. Main por elias vein demonstrates normal direction of flow. The gallbladder is well distended, and contains small layering gallstones. No gallbladder wall thickening evident. The common bile duct measures 3 mm. Th e visualized pancreas, aorta, and IVC are unremarkable. Impression: Cholelithiasis. Reviewed, dictated and finalized at location M. Impression: Cholelithiasis.
== END 2023-09-18 08:08 | disposition home or self-care (01) ==
PROVIDERS: PCP Family Medicine; Visit Provider Family Medicine
DX: R74.8 Abnormal levels of other serum enzymes (principal); K80.20 Calculus of gallbladder without cholecystitis without obstruction
CPT/HCPCS: 76705

== ENCOUNTER 2023-12-05 12:00 | Outpatient (CLI) | payer OTHER, SELFPAY ==
--- NOTE | ~2023-12-05 | MR_ITS ---
EXAMINATION: MR brain/brain stem wo con DATE: 12/05/2023 12:47 INDICATION: Unspecified convulsions. TECHNIQUE: Magnetic resonance imaging (MRI) of the brain and brainstem was performed without intraven ous contrast. COMPARISON: None. FINDINGS: The hippocampi are normal and symmetric. There is no intracranial hemorrhage, acute infarct ion, or abnormal intracranial mass lesion. The ventricles are normal in size. The paranasal sinuses a re clear. The orbits are normal. The mastoid air cells are normal. IMPRESSION: 1. Normal brain. Reviewed, dictated and finalized at location A. IMPRESSION: 1. Normal brain.
== END 2023-12-05 12:01 | disposition home or self-care (01) ==
PROVIDERS: PCP Family Medicine; Visit Provider Psychiatry & Neurology Neurology
DX: R56.9 Unspecified convulsions (principal)
CPT/HCPCS: 70551

== ENCOUNTER 2024-01-04 16:23 | Emergency (ER) | payer OTHER, SELFPAY ==
--- NOTE | ~2024-01-04 | CT_ITS ---
CLINICAL INDICATION: Left rib injury . COMPARISON: 06/06/2008. TECHNIQUE: Computed tomography (CT) of the chest and abdomen was performed without intravenous contra st. The dose-length product was 1340.62 mGy-cm. FINDINGS/OBSERVATIONS: Lung: Patchy groundglass opacification of the bilateral lower lobes. The remainder of the lungs are otherwise clear Heart: The heart is of normal size, without pericardial effusion. Mediastinum: No pathologically enlarged or morphologically suspicious lymph nodes within the mediasti num. The thoracic aorta is not enlarged. Bones: No acute or subacute rib fracture is appreciated. No significant degenerative disease within the thoracic or upper lumbar spine Liver: The liver is not enlarged. Homogeneous attenuation is present. Gallbladder and biliary system: The gallbladder is only minimally distended, but otherwise unremarkab le. Pancreas: Limited evaluation without intravenous contrast Spleen: The spleen is not enlarged. Kidneys: No hydronephrosis or renal calculi. Adrenal glands: Unremarkable Gastrointestinal tract: Trace fecal stasis Appendix:Not included Vasculature: Unremarkable Lymph nodes: Scattered nonpathologically enlarged lymph nodes within the retroperitoneum, a nonspecif ic finding. IMPRESSION: Patchy groundglass opacification of the bilateral lower lobes. No acute or subacute rib fractures. No intra-abdominal injury is appreciated. Reviewed, dictated and finalized at location A.
[2024-01-04] MEDS: KETOROLAC 30 MG/ML VIAL (*BKC) 15 MG IM (16:50)
--- NOTE | 2024-01-04 17:08 | ED.FALL ---
HPI - Fall General Chief Complaint: Fall Stated Complaint: fall yesterday, left rib pain Time Seen by Provider: 01/04/24 16:38 History of Present Illness HPI Narrative: Patient with history of seizures and frequent falls fell yesterday, landing on her L side; now with bad pain to L flank/back. Saw her PCP today who sent her to ER for CT. Slight dyspnea from pain Related Data Home Medications Medication Instructions Recorded Confirmed gabapentin 300 mg capsule 300 mg PO TID 05/12/21 11/07/23 calcium carbonate (Tums) 200 mg PO BID 09/28/21 11/07/23 etonogestrel 68 mg subdermal 1 implant subdermal ONCE 01/04/23 11/07/23 implant (Nexplanon) Allergies Allergy/AdvReac Type Severity Reaction Status Date / Time codeine Allergy Unknown Palpitation Verified 01/04/24 15:25 s insulin glargine AdvReac Unknown severe Verified 01/04/24 15:25 [From Lantus U-100 Insulin] bruising Review of Systems Review of Systems: All systems reviewed & are unremarkable except as noted in HPI and below PMFSH Past Medical History Medical History Acute bilateral low back pain without sciatica Acute cystitis without hematuria Albuminuria Alternating constipation and diarrhea Anxiety Bipolar depression Bladder stone Bloating Blood in mouth of unknown source Cellulitis Chronic nausea Depression 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 Diabetic ketoacidosis Diabetic polyneuropathy Early satiety Gas bloat syndrome Gastric dysmotility GERD (gastroesophageal reflux disease) H/O nephrolithotomy with removal of calculi H/O renal calculi Hepatomegaly Hyperlipidemia, unspecified (03/12/18) Irritable bowel syndrome with constipation Long-term insulin use Morbid obesity Nausea Nausea & vomiting Nexplanon in place Noncompliance Paronychia of left middle finger Pelvic mass in female Seizure disorder Thoracic sprain Type 1 diabetes mellitus with hyperglycemia, with long-term current use of insulin Type 1 diabetes mellitus without complication Surgical History Surgical History H/O endoscopy Family History Family History Grandparent Diabetes mellitus Family history of cardiovascular disease Cerebrovascular accident Family history of Alzheimer's disease Family history of lung cancer Mother Family history of mental disorder Depression Family history of multiple sclerosis Family history of cardiovascular disease Family history of chronic obstructive pulmonary disease Father Hypertension Sibling No problems noted. Other Family history of hearing loss Family history of malignant neoplasm Family history of obesity Family history of osteoporosis Social History Social History Smoking packs per day: 0 Smoking cigarettes per day: 0.0 Years smoked: 0 Smoking pack-years: 0.00 Smoking status: Never smoker Second hand tobacco smoke exposure: Yes Alcohol intake: current Alcohol use details: maybe 3-4 times a year Substance use: current Substance use type: marijuana Do You Feel Safe in your Home?: Yes Lack of Transportation: YES Lack of Food: Sometimes True Current Housing: I Have Housing Concerned About Future Housing: Decline to Answer Difficulty Paying Gas/Electric Bills: YES Difficulty Paying for Meds: No Currently Unemployed: Decline to Answer Education: High School Diploma/GED Difficulty w/ Childcare or Family Care: No Living arrangements: with family Occupation/Education: other Additional occupation/education comments: Disabled Gender identity (if verbalized by the patient): Female Exam Narrative: EXAMINATION OF ORGAN SYSTEMS/BODY AREAS: Constitutional: Vital signs per nursing GENERAL: Appears uncomfo
--- NOTE | 2024-01-04 17:52 | PC.NURSE ---
pt adamantly declines giving a bedside test due to being on menstrual cycle. educated patient that bleeding can still occur and staff does not mind blood contaminated urine. they state they have not been sexually active in years and would rather sign a consent form stating they know the risks.
[2024-01-04] MEDS: oxyCODONE/ACETAMINOPHEN (*CRX) 5-325 MG TABLET 1 TABLET PO (18:30)
[2024-01-04] MEDS: KETOROLAC 10 MG TABLET PO (18:31)
[2024-01-04] MEDS: methocarbamoL 500 MG TABLET PO (18:31)
[2024-01-04] MEDS: LIDOCAINE 5% PATCH 1 PATCH TRANSDERM (18:32)
[2024-01-04 18:52] VITALS: BP 139/84; PULSE 91; RESP 17; TEMP 36.6; O2SAT 100
== END 2024-01-04 18:53 | disposition home or self-care (01) ==
PROVIDERS: Emergency Provider Emergency Medicine; PCP Family Medicine
DX: S39.91XA Unspecified injury of abdomen, initial encounter (principal); G40.909 Epilepsy, unspecified, not intractable, without status epilepticus; R29.6 Repeated falls; E10.49 Type 1 diabetes mellitus with other diabetic neurological complication; E10.42 Type 1 diabetes mellitus with diabetic polyneuropathy; E78.5 Hyperlipidemia, unspecified; E66.01 Morbid (severe) obesity due to excess calories; Z68.41 Body mass index [BMI] 40.0-44.9, adult; K58.9 Irritable bowel syndrome, unspecified; K21.9 Gastro-esophageal reflux disease without esophagitis; F41.9 Anxiety disorder, unspecified; F31.9 Bipolar disorder, unspecified; Z87.442 Personal history of urinary calculi; Z77.22 Contact with and (suspected) exposure to environmental tobacco smoke (acute) (chronic); W19.XXXA Unspecified fall, initial encounter
CPT/HCPCS: 71250; 74150; 96372; 99284; A9270; J1885

== ENCOUNTER 2024-01-09 00:18 | Emergency (ER) | payer OTHER, SELFPAY ==
[2024-01-09 00:29] VITALS: BP 176/102; PULSE 108; RESP 15; O2SAT 100
--- NOTE | 2024-01-09 00:45 | ECG_ITS ---
Test Date: 2024-01-09 01:21:00 Measurements Intervals [place] Rate: 75 P: 18 UT: 120 QRS: -6 QRSD: 95 T: 20 QT: 375 QTc: 420 Interpretive Statements SINUS RHYTHM WITH SINUS ARRHYTHMIA No previous ECG available for comparison Electronically Signed On 01-09-2024 12:22:30 CDT by Demario Sterling M.D.
[2024-01-09 00:59] VITALS: BP 110/80; PULSE 99; RESP 15; O2SAT 98
--- NOTE | 2024-01-09 01:06 | ED.RECABL ---
HPI - Recheck/Abnormal Lab/Rx General Chief Complaint: Recheck/Abnormal Lab/Rx Stated Complaint: high blood pressure Time Seen by Provider: 01/09/24 00:31 History of Present Illness HPI narrative: 28-year-old female with a history of insulin-dependent diabetes, hypertension, bipolar depression and borderline personality disorder. Patient presents to the emergency room with multiple complaints but her chief concern is that she was having hot flashes and felt nauseous while at home. She took her blood sugar noted that was 91. She states that she recently fell was prescribed methocarbamol and has been taking this and substitute of her Shelbina and alprazolam at home. She knows that her blood pressure was severely high in the 180s range at home. Presently she is normotensive without any acute concerns. patient states that she does want to get checked out but otherwise presently has no concerns. Denies any present nausea, vomiting, headache, vision change, abdominal pain, back pain, flank pain, fever, chills, dysuria or a chance of . She was recently seen and evaluated by her PCP. Related Data Home Medications Medication Instructions Recorded Confirmed gabapentin 300 mg capsule 300 mg PO TID 05/12/21 11/07/23 calcium carbonate (Tums) 200 mg PO BID 09/28/21 11/07/23 etonogestrel 68 mg subdermal 1 implant subdermal ONCE 01/04/23 11/07/23 implant (Nexplanon) Allergies Allergy/AdvReac Type Severity Reaction Status Date / Time codeine Allergy Unknown Palpitation Verified 01/04/24 15:25 s insulin glargine AdvReac Unknown severe Verified 01/04/24 15:25 [From Lantus U-100 Insulin] bruising Review of Systems Review of Systems: as reviewed above in HPI [facility] Past Medical History Medical History Acute bilateral low back pain without sciatica Acute cystitis without hematuria Albuminuria Alternating constipation and diarrhea Anxiety Bipolar depression Bladder stone Bloating Blood in mouth of unknown source Cellulitis Chronic nausea Depression 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 Diabetic ketoacidosis Diabetic polyneuropathy Early satiety Gas bloat syndrome Gastric dysmotility GERD (gastroesophageal reflux disease) H/O nephrolithotomy with removal of calculi H/O renal calculi Hepatomegaly Hyperlipidemia, unspecified (03/12/18) Irritable bowel syndrome with constipation Long-term insulin use Morbid obesity Nausea Nausea & vomiting Nexplanon in place Noncompliance Paronychia of left middle finger Pelvic mass in female Seizure disorder Thoracic sprain Type 1 diabetes mellitus with hyperglycemia, with long-term current use of insulin Type 1 diabetes mellitus without complication Surgical History Surgical History H/O endoscopy Family History Family History Grandparent Diabetes mellitus Family history of cardiovascular disease Cerebrovascular accident Family history of Alzheimer's disease Family history of lung cancer Mother Family history of mental disorder Depression Family history of multiple sclerosis Family history of cardiovascular disease Family history of chronic obstructive pulmonary disease Father Hypertension Sibling No problems noted. Other Family history of hearing loss Family history of malignant neoplasm Family history of obesity Family history of osteoporosis Social History Social History Smoking packs per day: 0 Smoking cigarettes per day: 0.0 Years smoked: 0 Smoking pack-years: 0.00 Smoking status: Never smoker Second hand tobacco smoke exposure: Yes Alcohol intake: current Alcohol use details: maybe 3-4 times a year Substance use: current Substance use t
[2024-01-09] MEDS: LACTATED RINGERS 1,000 ML 999 ML IV CONT (01:15)
[2024-01-09] MEDS: ONDANSETRON INJ 4 MG/2 ML VIAL IV PUSH (01:15)
[2024-01-09 01:18] LABS: Basophils Absolute Auto 0.1 K/mm3 (0.0-0.1); Basophils Percent Auto 1.3 % (0.2-1.2); Eosinophils Absolute Auto 0.4 K/mm3 (0-0.3); Eosinophils Percent Auto 4.7 % (0-4.4); Hematocrit 38.8 % (37.0-47.0); Hemoglobin 12.9 g/dL (12.0-15.0); Immature Granulocyte Absolute 0.02 K/mm3 (0.00-0.031); Immature Granulocyte Percent A 0.3 % (0-0.5); Lymphocytes Absolute Auto 2.02 K/mm3 (0.9-3.2); Lymphocytes Percent Auto 25.9 % (18.3-44.2); Mean Corpuscular HGB Conc 33.2 g/dl (32-36); Mean Corpuscular Hemoglobin 29.3 pg (26-34); Mean Corpuscular Volume 88.2 fl (80-100); Mean Platelet Volume 8.8 fl (7.4-10.4); Monocytes Absolute Auto 0.5 K/mm3 (0.1-0.6); Monocytes Percent Auto 6.9 % (2.6-8.5); Neutrophils Absolute Auto 4.7 K/mm3 (1.3-6.7); Neutrophils Percent Auto 60.9 % (45.5-73.1); Platelet Count Result 374 k/mm3 (150-375); Red Cell Distribution Width 12.5 % (11.5-14.5); White Blood Count 7.8 K/mm3 (4.5-10.0)
[2024-01-09 01:25] LABS: BEDSIDEPREGUCG Negative (Negative)
[2024-01-09 01:30] LABS: Alanine Aminotransferase 22 U/L (6-35); Albumin Level 4.6 g/dL (3.5-5.1); Alkaline Phosphatase 85 U/L (38-126); Anion Gap 11 mmol/L (4-12); Aspartate Amino Transferase 28 U/L (14-36); Bilirubin,Total 0.5 mg/dL (0.2-1.3); Blood Urea Nitrogen 8 mg/dL (7-17); Calcium 9.7 mg/dL (8.4-10.2); Carbon Dioxide 27 mmol/L (22-30); Chloride 100 mmol/L (98-107); Estimated CRCL calculation 141 ml/min; Estimated Glomerular Filt Rate > 60; Glucose 148 mg/dL (65-110); Potassium 4.1 mmol/L (3.4-5.0); Sodium 138 mmol/L (137-145)
[2024-01-09 02:05] VITALS: BP 134/76; PULSE 97; RESP 15; O2SAT 100
== END 2024-01-09 02:07 | disposition home or self-care (01) ==
PROVIDERS: Emergency Provider Student in an Organized Health Care Education/Training Program; PCP Family Medicine
DX: R23.2 Flushing (principal); F41.9 Anxiety disorder, unspecified; F31.9 Bipolar disorder, unspecified; K21.9 Gastro-esophageal reflux disease without esophagitis; E10.9 Type 1 diabetes mellitus without complications
CPT/HCPCS: 36415; 80053; 81025; 85025; 93005; 96361; 96374; 99284; J2405; J7120

== ENCOUNTER 2024-05-05 11:38 | Emergency (ER) | payer OTHER, SELFPAY ==
[2024-05-05 11:40] VITALS: BP 158/89; PULSE 107; RESP 20; TEMP 37.4; O2SAT 97
--- OUTSIDE RECORDS SUMMARY | 2024-05-05 11:41 | XMS_ITS | Clinical Summary ---
Author Organization [facility] Address [address] [place] [address] Phone Care Team Providers Care Credit Reference Clerk Name Role Phone Campbell Jeffries DPM Unavailable [phone] Gustavo Heck MD Primary Care Provider [phone] Tanvir Hughes MD Unavailable [phone] Allergies Active Allergy Reactions Criticality Noted Date Comments Codeine Other (see Comments) 04/15/2015 rapid heart beat and sweating Insulin Glargine Other (see Comments) 3 bruising Medications insulin glulisine (APIDRA) 100 UNIT/ML Solution 30 Units by Subcutaneous route 3 times daily (before meals). 1000 mL 3 6 Active Insulin Syringe-Needle U-100 (INSULIN SYRINGE .5CC/31GX5/16 ) 31G X 5/16 0.5 ML MiscIndications :Type 1 diabetes mellitus with nephropathy (HCC) Once a day 100 Each 3 7 Active clonazePAM (KLONOPIN) 1 MG Tablet Take 1 mg by mouth 3 times daily. Active Acetaminophen (TYLENOL PO) Take 1,000 mg by mouth. Active ondansetron (ZOFRAN) 4 MG Tablet ondansetron HCl 4 mg tablet TAKE 1 TABLET BY MOUTH TWICE DAILY NEEDED FOR NAUSEA Active etonogestrel (NEXPLANON) 68 MG Implant Nexplanon 68 mg subdermal implant Active lisinopril (PRINIVIL, ZESTRIL) 2.5 MG Tablet TAKE 1 TABLET BY MOUTH ONCE DAILY 0 Active atorvastatin (LIPITOR) 20 MG Tablet Take 20 mg by mouth. Active gabapentin (NEURONTIN) 300 MG Capsule Take 300 mg by mouth. 2 Active metoprolol Succinate (TOPROL-XL) 25 MG TABLET SR 24 HR Take 25 mg by mouth. Active ALBUTEROL SULFATE IN take by inhalation. Active busPIRone (BUSPAR) 10 MG Tablet Take 10 mg by mouth 3 times daily. Active montelukast (SINGULAIR) 10 MG Tablet Take 10 mg by mouth every evening. Active pantoprazole (PROTONIX) 40 MG Pack 40 mg by Per NG tube route 2 times daily. Active Vortioxetine HBr (Trintellix) 20 MG Tablet Take by mouth. Activ e Insulin Lispro (HUMALOG SC) by Subcutaneous route. Active Continuous Glucose 3Rd Grade Teacher (Dexcom G6 3Rd Grade Teacher) Device by Does not apply route. Active BIOTIN FORTE PO Take by mouth. Active lamoTRIgine (LaMICtal) 200 MG Tablet Take 1 Tablet by mouth 2 times daily. 180 Tablet 1 4 Active Active Problems Problem Noted Date Diagnosed Date Urinary retention 06/26/2018 Hypertension 06/26/2018 Bladder stone 06/25/2018 Diabetic ketoacidosis withou t coma associated with type 1 diabetes mellitus 05/09/2018 Anxiety 05/09/2018 Hyponatremia 05/09/2018 Hypertension 05/09/2018 Diabetic ketoacidosis withou t coma associated with type 1 diabetes mellitus 07/17/2016 Type 1 diabetes mellitus with vascular disease 0 06/28/2016 Type 1 diabetes mellitus with polyneuropathy 06/2016 Posterior tibial tendonitis 06/28/2016 Gastrocnemius equinus of right lower extremity 0 06/28/2016 Gastrocnemius equinus of left lower extremity Leukocytosis 05/14/2016 Acute cystitis with hematuria 03/23/2016 Diabetic ketoacidosis withou t coma associated with type 1 diabetes mellitus 03/23/2016 Hypokalemia 03/23/2016 Hypophosphatemia 03/23/2016 Depression 02/27/2016 Hyperlipidemia 12/13/2015 Hyponatremia 12/12/2015 Acute cystitis without hematuria 12/12/2015 Resolved Problems Problem Noted Date Diagnosed Date Resolved Date Diabetic ketoacidosis withou t coma associated with type 1 diabetes mellitus 02/27/2016 02/28/2016 Hypokalemia 02/27/2016 02/28/2016 Encounters Date Type Department Care Team Description 03/04/2024 9:45 AM SPLICER APPRENTICE Office Visit [facility] - Neurology [facility] [address] [place] [address] Tanvir Hughes MD Seizures (HCC) (Primary Dx); Anxiety Discharge Disposition: Discharged to home or Selfcare 03/04/2024 Travel from Last 3 Months Immunizations Immunization Administration Dates Next Due Influenza Vaccine, Quadrivalent, PF 05/27(Deferred: - says she will get from her PCP),05/10/2018(),12/13/2015 Pneumococcal Vaccine Adult - 23 Valent 05/15/2016 Family History Medical History Relation Name Comments Diabetes Father Diabetes Mother Relation Name Status Comments Father Alive Mother Social History Tobacco Use Types Packs/Day Years Used Date Smoking Tobacco: Never Smokeless Tobacco: Never Tobacco Cessation:Counseling Given: Not Answered Alcohol Use Standard Drinks/Week Comments Not Currently 0 (1 standard drink = 0.6 oz pur e alcohol) occasionally AUDIT-C Answer Date Recorded Q1: How often do you have a drink containing alc ohol? Never 07/31/2019 Average Number of Drinks Not on file 020 Frequency of Binge Drinking Not on file 08/2019 Sexually Active Control Partners Comments Yes Male Comments No Sex and Gender Information Value Date Recorded Sex Assigned at Not on file Legal Sex Female 11:27 PM CDT Gender Identity Not on file Sexual Orientation Not on file Last Filed Vital Signs Vital Sign Reading Time Taken Comments Blood Pressure 124/70 03/04/2024 10:02 AM SPLICER APPRENTICE Pulse 103 03/04/2024 10:02 AM SPLICER APPRENTICE Temperature 36.3 C (97.4 F) 03/04/2024 10:02 AM SPLICER APPRENTICE Respiratory Rate 18 03/04/2024 10:02 AM SPLICER APPRENTICE Oxygen Saturation 96% 03/04/2024 10:02 AM SPLICER APPRENTICE Inhaled Oxygen Concentration - - Weight 129.3 kg (285 lb) 03/04/2024 10:02 AM SPLICER APPRENTICE Height 172.7 cm (5' 8 ) 03/04/2024 10:02 AM SPLICER APPRENTICE Body Mass Index 43.33 03/04/2024 10:02 AM SPLICER APPRENTICE Plan of Treatment Upcoming Encounters Date Type Department Care Team (Late st Contact Info) Description 08/26/2024 8:30 AM CDT Office Visit [facility] - Neurology - [address] [place] [address] Joslyn Llanos, ABATEMENT WORKER, [employer] DEVELOPER [address] [place] [address] Health Maintenance Due Date Last Done Comments Diabetes: Eye Exam 1994 Diabetes: Foot Exam 1994 Hepatitis C Virus (HCV) Screening 1994 Hepatitis B Immunization (2 of 3 - 3-dose series) 03/21/1995 02/21/1995 Pneumococcal Immunization Combined (2 of 2 - PCV) 05/15/2017 05/15/2016, 11/26/2015 Diabetes: Hemoglobin A1c 10/30/2021 022, 06/23/2018, 06/23/2018, Additional history exists Diabetes: Nephropathy Screening 11/25/2023 11/24/2022, 11/15/2022, 12/05/2021, Additional history exists Influenza Immunization (#1) 11/26/202308/2022, 01/13/2021, 12/13/2015, Additional history exists SARS-COV-2 Immunization ( season) 2023 01/30/2023, 01/24/2021, 06/02/2020 Respiratory Syncytial Virus (RSV) Immunization (Adult) (1 - 1-dose 75+ series) 2069 DTaP/Tdap/Td Immunization Discontinued 2008, 06/02/1999, 11/24/1995, Additional history exists TdaP Immunization Completed 10/14/2008 Human Papillomavirus (HPV) Immunization Discontinued 04/27/2009, 12/19/2008, 10/14/2008 Meningococcal Immunization (ACWY) Aged Out No longer eligible based on patient's age to complete this topic Rotavirus Immunization Aged Out No lo nger eligible based on patient's age to complete this topic Procedures Procedure Name Priority Date/Time Associated Diagnosis Comments CMP (COMPREHENSIVE METABOLIC PANEL) STAT 11/24/2022 6:27 AM CDT HEMOGLOBIN A1C W/ ESTIMATED GLUCOSE STAT 06/23/2018 3:38 PM CDT from Last 3 Months or Most Recently Relevant to Health Maintenance Results * (ABNORMAL) CMP (11/24/2022 6:27 AM CDT) SODIUM 135(L) 136 - 145 mmol/L 11/24/2022 7:03 AM CDT [facility] POTASSIUM 4.7 3.5 - 5.1 mmol/L 11/24/2022 7:03 AM CDT [facility] CHLORIDE 101 98 - 107 mmol/L 11/24/2022 7:03 AM CDT [facility] CO2, VENOUS 25 22 - 30 mmol/L 11/24/2022 7:03 AM CDT [facility] ANION GAP 13.7 <18.0 mmol/L 11/24/2022 7:03 AM CDT [facility] GLUCOSE 250(H) 70 - 99 mg/dL 11/24/2022 7:03 AM CDT [facility] BUN 9 5 - 18 mg/dL 11/24/2022 7:03 AM CDT [facility] CREATININE, BLOOD 0.83 0.60 - 1.00 mg/dL 11/24/2022 7:03 AM CDT [facility] BUN/CREATININE RATIO 11(L) 12 - 20 ratio 11/24/2022 7:03 AM CDT [facility] TOTAL PROTEIN 7.4 6.3 - 8.2 g/dL 11/24/2022 7:03 AM CDT [facility] ALBUMIN 4.2 3.5 - 5.0 g/dL 11/24/2022 7:03 AM CDT [facility] A/G RATIO 1.3 1.0 - 2.2 11/24/2022 7:03 AM CDT [facility] CALCIUM 8.7 8.7 - 10.5 mg/dL 11/24/2022 7:03 AM CDT [facility] T BILI 0.5 0.2 - 1.2 mg/dL 11/24/2022 7:03 AM CDT [facility] SGOT (AST) 14 5 - 34 U/L 11/24/2022 7:03 AM CDT [facility] SGPT (ALT) 14 0 - 55 U/L 11/24/2022 7:03 AM CDT [facility] ALKALINE PHOSPHATASE 102 40 - 150 U/L 11/24/2022 7:03 AM CDT [facility] GFR, ESTIMATED >60 >=60 11/24/2022 7:03 AM CDT [facility] Comment: Creatinine Clearance is the preferred criteria for selecting drug dose adjustments in renally impaired patients. The GFR is provided as additional pertinent clinical information. GFR is reported in mL/min/1.73 sq m. Calculation based on the Chronic Kidney Disease Epidemiology Collaboration (CKD- EPI) equation refit without adjustment for race. GFR, EST. >60 >=60 023 7:03 AM CDT [facility] GFR, EST. NONAFRICAN >60 >=60 11/24/2022 7:03 AM CDT [facility] Blood Venipuncture / Unknown 11/24/2022 6:27 AM CDT 11/24/2022 6:34 AM CDT us Sohan Teresa MD CHEMISTRY ORDERABLES Final Resul t [facility] [address] [place] [address] * (ABNORMAL) Hemoglobin A1C (06/23/2018 3:38 PM CDT) HGB-A1C 10.4(H) 4.0 - 6.0 % 06/23/2018 3:58 PM CDT [facility] Est Average Glucose 251.8 mg/dL 06/23/2018 3:58 PM CDT [facility] Blood specimen (specimen) Venipuncture / Unknown 06/23/2018 3:38 PM CDT 06/23/2018 3:38 PM CDT Narrative [facility] - 06/23/2018 3:58 PM CDT HEMOGLOBIN A1C: DIABETIC PATIENTS: WELL-CONTROLLED: 6.2 - 7.0 INTERMEDIATE WELL-CONTROLLED: 7.0 - 9.0 POORLY-CONTROLLED: >9.0 us Loyd Lazar MD CHEMISTRY ORDERABLES Final Result [facility] [address] [place] [address] from Last 3 Months or Most Recently Relevant to Health Maintenance Insurance MEDICAID [place] Advance Directives * Full Code (Latest Code Status on File) Date Activated Date Inactivated Comments 06/23/2018 3:53 PM 06/26/2018 8:22 PM CPR-Full Faith tment: FULL ARREST: Attempt Resuscitation/CPR wit intubation and mechanical ventilation. PRE-ARREST: Use entire range of life support measures to stabilize the patient. * Full Code Date Activated Date Inactivated Comments 05/09/2018 12:32 PM 05/11/2018 12:27 PM CPR-Full T reatment: FULL ARREST: Attempt Resuscitation/CPR wit intubation and mechanical ventilation. PRE-ARREST: Use entire range of life support measures to stabilize the patient. * Full Code Date Activated Date Inactivated Comments 07/16/2016 10:19 PM 07/18/2016 11:52 AM CPR-Full T reatment: FULL ARREST: Attempt Resuscitation/CPR wit intubation and mechanical ventilation. PRE-ARREST: Use entire range of life support measures to stabilize the patient. * Full Code Date Activated Date Inactivated Comments 03/23/2016 5:35 PM 03/25/2016 10:50 PM CPR-Full Treatment: FULL ARREST: Attempt Resuscitation/CPR wit intubation and mechanical ventilation. PRE-ARREST: Use entire range of life support measures to stabilize the patient. * Full Code Date Activated Date Inactivated Comments 02/26/2016 7:54 AM 02/28/2016 5:32 PM CPR-Full Anuel atment: FULL ARREST: Attempt Resuscitation/CPR wit intubation and mechanical ventilation. PRE-ARREST: Use entire range of life support measures to stabilize the patient. Care Teams Credit Reference Clerk Relationship Specialty Start Date End Date Gustavo Heck MD [address] [place] [id number] PCP - General Family Medicine 12/05/21 Campbell Jeffries DPM Consulting Physician Podiatry 06/28/16 Tanvir Hughes MD [address] [place] [address] Consulting Physician Neurology 11/30/23
--- OUTSIDE RECORDS SUMMARY | 2024-05-05 11:42 | XMS_ITS | Referral Summary ---
Author Organization [facility] Address [address] [place] [address] Care Team Providers Care Projection Welding Machine Operator Name Role Phone Gustavo Heck MD Primary Care Provider [phone] Matt Caldwell DO Unavailable [phone] Kole Lizama MD Unavailable Encounters Date Type Department Care Team Description 04/18/2024 2:30 PM COMMERCIAL MARKETING SPECIALIST Office Visit [facility] Medical Group Diabetes Endocrine Care at [address] [place] [id number] Cathy Sterling DO Type 1 diabetes mellitus with other specified complication (HCC) from Last 3 Months Allergies Active Allergy Reactions Criticality Noted Date Comments Codeine Palpitations Low 07/30/2020 Codeine Unknown 09/08/2022 Insulin Glargine Other (See comments) Low bruising Medications clonazePAM (KlonoPIN) 1 mg tablet Take 1 tablet (1 mg total) by mouth 3 (three) times a day Active metoprolol XL (TOPROL-XL) 25 mg extended release tablet Take 1 tablet (25 mg total) by mouth daily with dinner Active ondansetron (ZOFRAN) 4 mg tablet Take 1 tablet (4 mg total) by mouth as needed for nausea or vomiting Active acetaminophen (TYLENOL) 325 mg tablet Take 2 tablets (650 mg total) by mouth every 6 (six) hours as needed for pain Active diphenhydrAMINE (BENADRYL) 25 mg capsule Take 1 tablet/capsule (25 mg total) by mouth every 6 (six) hours as needed for itching Active lisinopriL (PRINIVIL,ZESTR IL) 5 mg tablet Take 0.5 tablets (2.5 mg total) by mouth daily Active insulin lispro (HumaLOG) 200 unit/mL (3 mL) pen for injection Inject under the skin 3 (three) times a day with meals Uses as a sliding scale with a 15 unit maximum Active prochlorperazin e (COMPAZINE) 10 mg tablet Take 1 tablet (10 mg total) by mouth 2 (two) times a day as needed for nausea or vomiting 10 tablet 3 Active Additional Information Patient not taking.Reported on 04/18/2024 albuterol HFA (PROVENTIL HFA,VENTOLIN HFA,PROAIR HFA) 90 mcg/actuation inhalerIndicati ons:Bronchospas m Prevention Inhale 1 puff every 4 (four) hours as needed for wheezing Active atorvastatin (LIPITOR) 80 mg tablet Take 1 tablet (80 mg total) by mouth daily Active calcium carbonate-vitam in D3 1,500 mg (600 mg elemental)-200 unit capsule Take 2 tablets by mouth daily Active dulaglutide (TRULICITY) 0.75 mg/0.5 mL pen injector Inject 0.5 mL (0.75 mg total) under the skin every 7 days 01/28 Active ezetimibe (ZETIA) 10 mg tablet Take 1 tablet (10 mg total) by mouth daily Active gabapentin (NEURONTIN) 300 mg capsuleIndicati ons:Neuropathic Pain Take 1 capsule (300 mg total) by mouth 3 (three) times a day Active lamoTRIgine (LaMICtal) 150 mg tablet Take 1 tablet (150 mg total) by mouth daily Active lamoTRIgine (LaMICtal) 100 mg tablet Take 1 tablet (100 mg total) by mouth nightly Active traZODone (DESYREL) 50 mg tablet Take 1 tablet (50 mg total) by mouth nightly Active ziprasidone (GEODON) 20 mg capsule Take 1 capsule (20 mg total) by mouth 2 (two) times a day with meals Active montelukast (SINGULAIR) 10 mg tablet Take 1 tablet (10 mg total) by mouth nightly Active pantoprazole DR (PROTONIX) 40 mg EC tabletIndicatio ns:Treatment of Non-Bleeding Gastric Disorder Take 1 tablet (40 mg total) by mouth daily 30 tablet 11 3 Active busPIRone (BUSPAR) 10 mg tablet Take 1 tablet (10 mg total) by mouth 3 (three) times a day Active etonogestreL (NEXPLANON) 68 mg implant Nexplanon 68 mg subdermal implant Active Trintellix 20 mg tablet Take 1 tablet (20 mg total) by mouth daily Active acetone, urine, test strip Use if blood glucose above 250 100 strip 11 5 Active Active Problems Problem Noted Date Diagnosed Date Type 1 diabetes mellitus with hyperglycemia 10/2022 Breakthrough seizure ([facility]) 01/31/2023 Epilepsy undetermined as to focal or generalized 09/13/2022 Diabetic ketoacidosis withou t coma associated with type 1 diabetes mellitus ([facility]) 07/30/2020 Volume depletion 07/30/2020 Depression 07/30/2020 Immunizations Name Administration Dates Next Due Influenza, Unspecified 01/30/2023 Social History Tobacco Use Types Packs/Day Years Used Date Smoking Tobacco: Never Tobacco Cessation:Counseling Given: Not Answered [facility] Utilities Answer Date Recorded In the past 12 months has th [employer], gas, oil, or water company threatened to shut off services in your home? No 02/01/2023 Social Connection and Isolation Panel [NHANES] A nswer Date Recorded In a typical week, how many times do you talk on the phone with family, friends, or neighbors? Three times a week 02/01/2023 How often do you get togethe r with friends or relatives? Three times a week 02/01/2023 How often do you attend [facility] or hinduism services? Never 02/01/2023 Do you belong to any clubs o r organizations such as gnosticist groups, unions, fraternal or athletic groups, or school groups? No 02/01/2023 How often do you attend meet ings of the clubs or organizations you belong to? Never 02/01/2023 Are you , , di vorced, , never , or living with a partner? 02/01/2023 AUDIT-C Answer Date Recorded Q1: How often do you have a drink containing alcohol? Never 01/31/2023 Q2: How many drinks containi ng alcohol do you have on a typical day when you are drinking? Patient does not drink Frequency of Binge Drinking Not on file 09/2022 Overall Financial Resource Strain (CARDIA) Answe r Date Recorded How hard is it for you to pa y for the very basics like food, housing, medical care, and heating? Somewhat hard 02/01/2023 Hunger Vital Sign Answer Date Recorded Within the past 12 months, y ou worried that your food would run out before you got the money to buy more. Sometimes true Within the past 12 months, t he food you bought just didn't last and you didn't have money to get more. Sometimes true 10/2022 PRAPARE - Transportation Answer Date Re corded In the past 12 months, has l ack of transportation kept you from medical appointments or from getting medications? No 10/2022 In the past 12 months, has l ack of transportation kept you from meetings, work, or from getting things needed for daily living? No 02/01/2023 Housing Stability Vital Sign Answer Lokesh e Recorded In the last 12 months, was t here a time when you were not able to pay the mortgage or rent on time? No 02/01/2023 In the last 12 months, how many places have you lived? 1 02/01/2023 In the last 12 months, was t here a time when you did not have a steady place to sleep or slept in a snf (including now)? No 02/01/2023 Personal Safety Answer Date Recorded Have you ever been in or are you currently in a harmful physical or emotional relationship or is someone making you feel afraid or unsafe? Denies 01/31/2023 Education Answer Date Recorded What is the highest level of school you have completed or the highest degree you have received? Some college, no degree 02/01/2023 Comments No Sex and Gender Information Value Date Recorded Sex Assigned at Not on file Legal Sex Female 8:34 AM COMMERCIAL MARKETING SPECIALIST Gender Identity Female 09/30/2022 7:52 PM CDT Sexual Orientation Straight 09/30/2022 7: 52 PM CDT Last Filed Vital Signs Vital Sign Reading Time Taken Comments Blood Pressure 130/82 04/18/2024 2:15 PM COMMERCIAL MARKETING SPECIALIST Pulse 117 04/18/2024 2:15 PM COMMERCIAL MARKETING SPECIALIST Temperature 36.4 C (97.6 F) 02/02/2023 7:30 AM COMMERCIAL MARKETING SPECIALIST Respiratory Rate 18 02/02/2023 7:30 AM COMMERCIAL MARKETING SPECIALIST Oxygen Saturation 98% 02/02/2023 7:30 AM COMMERCIAL MARKETING SPECIALIST Inhaled Oxygen Concentration - - Weight 116.9 kg (257 lb 11.5 oz) 01/31/2023 7:59 PM COMMERCIAL MARKETING SPECIALIST Height 172.7 cm (5' 8 ) 04/18/2024 2:15 PM COMMERCIAL MARKETING SPECIALIST Body Mass Index 39.19 01/31/2023 7:59 PM COMMERCIAL MARKETING SPECIALIST Plan of Treatment Not on file Procedures Procedure Name Priority Date/Time Associated Diagnosis Comments POCT HEMOGLOBIN A1C Routine 04/18/2024 2 :35 PM COMMERCIAL MARKETING SPECIALIST Type 1 diabetes mellitus with other specified complication (HCC) DIABETIC EYE EXAM Routine 12/14/2023 EGFR Routine 02/01/2023 6:56 AM COMMERCIAL MARKETING SPECIALIST from Last 3 Months or Most Recently Relevant to Health Maintenance Results * (ABNORMAL) POCT hemoglobin A1c (04/18/2024 2:35 PM COMMERCIAL MARKETING SPECIALIST) Hemoglobin A1C, POC 8.1 4.0 - 5.6 % Blood 04/18/2024 2:35 PM COMMERCIAL MARKETING SPECIALIST Cathy Sterling DO POINT OF CARE TEST ORDERABL ES Final Result * Diabetic Eye Exam (12/14/2023) 12/14/2023 Historical Provider HEALTH MAINTENANCE Final Result * eGFR (02/01/2023 6:56 AM COMMERCIAL MARKETING SPECIALIST) eGFR 121 mL/min/1. 73 m2 [facility] (IGGY) Comment: Interpretive Data Reference Interval Normal >/= 90 mL/min/1.73m2 Mildly decreased* 60 - 89 mL/min/1.73m2 Mildly to moderately decreased 45 - 59 mL/min/1.73m2 Moderately to severely decreased 30 - 44 mL/min/1.73m2 Severely decreased 15 - 29 mL/min/1.73m2 Kidney Failure < 15 mL/min/1.73m2 *Relative to young adult level Estimated glomerular filtration rate is determined by the 2020 CKD-EPI equation recommended by the National Kidney Foundation (A Unifying Approach to GFR Estimation: Recommendations of the NKF-ASK Task Force on Reassessing the Inclusion of Race in Diagnosing Kidney Disease, JASN 2020). The CKD-EPI equation should not be used for patients with unstable renal function and has not been validated in children and those over 70. Current interpretive data was last reviewed 2021. Blood 02/01/2023 6:56 AM COMMERCIAL MARKETING SPECIALIST 02/01/2023 7:14 AM COMMERCIAL MARKETING SPECIALIST us Elba Esparza MD LAB BLOOD ORDERABLES Fin al Result [facility] ([place]) 1 [facility] [place] [address] from Last 3 Months or Most Recently Relevant to Health Maintenance Insurance [facility] Advance Directives For more information, please contact: [phone] * Full Code (Latest Code Status on File) Date Activated Date Inactivated Comments 01/31/2023 6:56 PM 02/02/2023 4:24 PM Care Teams Projection Welding Machine Operator Relationship Specialty Start Date End Date Gustavo Heck MD PCP - General Family Practice 09/08/22 Matt Caldwell DO 09/08/22 Kole Lizama MD [address] [place] [address] [place] [address] Consulting Physician Gastroenterology 02/02/23
--- OUTSIDE RECORDS SUMMARY | 2024-05-05 11:42 | XMS_ITS | Clinical Summary ---
Author Organization [facility] Address [address] [place] [address] Phone Care Team Providers Care Stamp Pad Finisher Name Role Phone Gustavo Heck MD Primary Care Provider [phone] Allergies Active Allergy Reactions Criticality Noted Date Comments Codeine Palpitations Low 10/10/2016 Medications lisinopril (PRINIVIL) 2.5 mg tablet Take 2.5 mg by mouth daily. Active insulin glulisine (APIDRA) 100 unit/mL vial Inject 5 Units by subcutaneous injection 4 times daily with meals Take 5 units with meals. 10 mL 8 Active Additional Information Patient taking differently: 30 UnitssubCUT FOUR TIMES DAILY WITH MEALS AND AT BEDTIME, Take 5 units with meals,Indications: diabetes mellitus, Reported on 05/02/2021 insulin degludec (TRESIBA FLEXTOUCH U-100) 100 unit/mL pen syringe Take 30 units daily beginning 04/04/2017. 3 mL 8 Active Additional Information Patient taking differently: 50 Units, Take 30 units daily beginning 04/04/2017,Indications: diabetes mellitus, Reported on 05/02/2021 clonazePAM (KlonoPIN) 0.5 mg Tablet Take 1 Tablet (0.5 mg) by mouth every 8 hours as needed for Anxiety. 30 Tablet 1 8 Active Additional Information Patient taking differently: 1 mgOralTHREE TIMES DAILY PRN, Anxiety, Reported on 05/02/2021 sertraline (ZOLOFT) 100 mg tablet Take 2 Tablets (200 mg) by mouth daily. 60 Tablet 02/08/202 2 Active gabapentin (NEURONTIN) 300 mg capsule Take 1 Capsule (300 mg) by mouth every 8 hours. 90 Capsule 2 Active Active Problems Problem Noted Date Diagnosed Date Borderline personality disorder 05/03/2021 HTN (hypertension) 05/03/2021 Severe episode of recurrent major depressive disorder, without psychotic features 11/24/2017 Diabetic ketoacidosis associ ated with type 1 diabetes mellitus 04/02/2017 Atypical bipolar affective disorder 10/11/2016 Generalized anxiety disorder 10/11/2016 Type 1 diabetes mellitus Hyponatremia Routine general medical exam ination at a health care facility Dyslipidemia Acute URI of multiple sites Hypokalemia Hypophosphatemia Diabetic ketoacidosis withou t coma associated with type 1 diabetes mellitus Hyperlipidemia Family History Medical History Relation Name Comments Diabetes Father Diabetes Mother Relation Name Status Comments Father Mother Social History Tobacco Use Types Packs/Day Years Used Date Smoking Tobacco: Never Smokeless Tobacco: Never Alcohol Use Standard Drinks/Week Comments Yes 0 (1 standard drink = 0.6 oz pur e alcohol) rare Comments No Sex and Gender Information Value Date Recorded Sex Assigned at Not on file Legal Sex Female 6:16 PM CDT Gender Identity Not on file Sexual Orientation Not on file Last Filed Vital Signs Vital Sign Reading Time Taken Comments Blood Pressure 148/90 05/04/2021 8:15 AM PASTOR Pulse 99 05/04/2021 8:15 AM PASTOR Temperature 36.2 C (97.2 F) 05/04/2021 8:15 AM PASTOR Respiratory Rate 18 05/04/2021 8:15 AM PASTOR Oxygen Saturation 98% 05/04/2021 8:15 AM PASTOR Inhaled Oxygen Concentration - - Weight 101.6 kg (224 lb) 05/02/2021 11:01 PM PASTOR Height 172.7 cm (5' 8 ) 05/02/2021 11:01 PM PASTOR Body Mass Index 34.06 05/02/2021 11:01 PM PASTOR Plan of Treatment Health Maintenance Due Date Last Done Comments DIABETES ANNUAL FOOT EXAM 2012 DIABETES ANNUAL RETINAL EXAM 2012 DIABETES MICROALBUMIN ANNUAL SCREEN 2012 DTAP/TDAP/TD VACCINES (1 - Tdap) 2013 HEPATITIS B VACCINES (1 of 3 - 19+ 3-dose series) 2013 CERVICAL CANCER SCREENING 08/30/2020 08/30/2017 DIABETES HBA1C Q 6 MONTHS 10/30/20212021, 02/23/2018, 11/23/2017, Additional history exists LDL CHOLESTEROL ANNUAL 05/02/2022 , 11/23/2017, 10/13/2016 INFLUENZA VACCINE (#1) 2023 12/13/2015 HPV VACCINES Aged Out No longer eligi ble based on patient's age to complete this topic Procedures Procedure Name Priority Date/Time Associated Diagnosis Comments LIPID PANEL Routine 05/02/2021 5:21 PM PASTOR HEMOGLOBIN A1C Routine 05/02/2021 5:21 PM PASTOR from Last 3 Months or Most Recently Relevant to Health Maintenance Results * (ABNORMAL) HEMOGLOBIN A1C (05/02/2021 5:21 PM PASTOR) HEMOGLOBIN A1C 7.8(H) <5.7 % 05/03/2021 9:42 AM PASTOR [facility] [employer] [facility] EST. AVG GLUCOSE, A1C 177 mg/dL 05/03/2021 9:42 AM PASTOR [facility] [employer] [facility] Blood Venipuncture / Unknown 05/02/2021 5:21 PM PASTOR 05/02/2021 5:23 PM PASTOR Narrative [facility] - 05/03/2021 9:42 AM PASTOR HGB A1C INTERPRETATION NORMAL: <5.7% PRE-DIABETES: 5.7 - 6.4% DIABETES: 6.5% OR GREATER us Keysha Pelletier MD CHEMISTRY ORDERABLES Final Resul t [facility] [employer] [facility] [id number] [address] [place] [address] * (ABNORMAL) LIPID PANEL (05/02/2021 5:21 PM PASTOR) CHOLESTEROL 227(H) <200 mg/dL 05/03/2021 12:47 PM PASTOR [facility] TRIGLYCERIDE 73 <150 mg/dL 05/03/2021 12:47 PM [facility] HDL 46 40 - 59 mg/dL 05/03/2021 12:47 PM [facility] LDL CALCULATED 166(H) <100 mg/dL 05/03/2021 12:47 PM [facility] NON-HDL CHOLESTEROL 181(H) <130 mg/dL 05/03/2021 12:47 PM [facility] Blood Venipuncture / Unknown 05/02/2021 5:21 PM PASTOR 05/02/2021 5:24 PM [facility] Narrative [facility] - 05/03/2021 12:47 PM PASTOR TOTAL CHOLESTEROL mg/dL Desirable <200 Borderline high 200-239 High >=240 TRIGLYCERIDES mg/dL Normal <150 Borderline high 150-199 High 200-499 Very high >=500 HDL CHOLESTEROL mg/dL Low <40 Normal 40-59 Desirable >=60 NON HDL CHOLESTEROL mg/dL Optimal <130 Near Optimal 130-159 Borderline High 160-189 Very High >=190 CALCULATED LDL mg/dL LDL <70, OPTIMAL if have Atherosclerotic cardiovascular disease (ASCVD) or intermediate or higher (>7.5%) 10 year risk of ASCVD including most adults with diabetes. LDL <100, Optimal in adult patients with low (<7.5%) 10 year ASCVD risk LDL 100-160, Suboptimal LDL >160, High LDL >190, Very high ATPIII Guidelines Reference Ranges for Lipid Panels (NCEP/AMA) . us Raghav Gutierrez MD CHEMISTRY ORDERABLES nal Result [facility] [id number] [address] [place] [address] from Last 3 Months or Most Recently Relevant to Health Maintenance Advance Directives For more information, please contact: [phone] * Full Code (Latest Code Status on File) Date Activated Date Inactivated Comments 05/02/2021 11:51 PM 05/04/2021 3:36 PM * Full Code Date Activated Date Inactivated Comments 11/23/2017 8:50 PM 11/29/2017 6:51 PM * Full Code Date Activated Date Inactivated Comments 11/23/2017 3:16 PM 11/23/2017 6:53 PM * Full Code Date Activated Date Inactivated Comments 11/22/2017 8:23 PM 11/23/2017 1:25 PM * Full Code Date Activated Date Inactivated Comments 04/01/2017 7:38 PM 04/03/2017 3:02 PM Care Teams Stamp Pad Finisher Relationship Specialty Start Date End Date Gustavo Heck MD PCP - General Family Practice 05/02/21
--- OUTSIDE RECORDS SUMMARY | 2024-05-05 11:42 | XMS_ITS | Clinical Summary ---
Author Organization [facility] Address [address] [place] [address] Care Team Providers Care Embroidery Assistant Name Role Phone Gustavo Heck MD Primary Care Provider [phone] Matt Caldwell DO Unavailable [phone] Kole Lizama MD Unavailable Allergies Active Allergy Reactions Criticality Noted Date [...] total) by mouth daily 30 tablet 11 Active busPIRone (BUSPAR) 10 mg tablet Take [...] diabetes mellitus with hyperglycemia 10/2022 Breakthrough seizure (CMS/HCC) 01/31/2023 Epilepsy undetermined as to focal or generalized 09/13/2022 Diabetic ketoacidosis withou t coma associated with type 1 diabetes mellitus (CMS/HCC) 07/30/2020 Volume depletion 07/30/2020 Depression 07/30/2020 Encounters Date Type Department Care Team Description 04/18/2024 2:30 PM TRANSPORTATION DESIGN ENGINEER Office Visit [facility] Medical Group Diabetes Endocrine Care at [address] [address] Cathy Sterling, DO Type 1 diabetes mellitus with other specified complication (HCC) from Last 3 Months Immunizations Name Administration Dates Next Due Influenza, Unspecified 01/30/2023 Surgical History Surgery Date Site/Laterality Comments LITHOTRIPSY Medical History Medical History Date Comments Diabetes mellitus (HCC) High cholesterol Supraventricular tachycardia (HCC) Diabetes mellitus type I (HCC) Hyperlipidemia Hypertension Anxiety Depression Seizures (HCC) Asthma Family History Medical History Relation Name Comments Diabetes Father Heart disease Father Depression Mother Diabetes Mother Heart disease Mother Hyperlipidemia Mother Multiple sclerosis Mother Relation Name Status Comments Father Mother Social History Tobacco Use Types Packs/Day Years Used Date Smoking Tobacco: Never Tobacco Cessation:Counseling Given: Not Answered [facility] Utilities Answer Date Recorded In the past 12 months has e [employer], gas, oil, or water [employer] threatened to shut off services in your [...] week 02/01/2023 How often do you attend chur ch or rastafarian services? Never 02/01/2023 Do you belong to any clubs o r organizations such as mormonism groups, unions, fraternal or athletic groups, or [...] place to sleep or slept in a [place] (including now)? No 02/01/2023 Personal Safety Answer [...] on file Legal Sex Female 8:34 AM TRANSPORTATION DESIGN ENGINEER Gender Identity Female 09/30/2022 7:52 PM CDT Sexual Orientation Straight 09/30/2022 7: 52 PM CDT Obstetrics History Last Filed Vital Signs Vital Sign Reading Time Taken Comments Blood Pressure 130/82 04/18/2024 2:15 PM TRANSPORTATION DESIGN ENGINEER Pulse 117 04/18/2024 2:15 PM TRANSPORTATION DESIGN ENGINEER Temperature 36.4 C (97.6 F) 02/02/2023 7:30 AM TRANSPORTATION DESIGN ENGINEER Respiratory Rate 18 02/02/2023 7:30 AM TRANSPORTATION DESIGN ENGINEER Oxygen Saturation 98% 02/02/2023 7:30 AM TRANSPORTATION DESIGN ENGINEER Inhaled Oxygen Concentration - - Weight 116.9 kg (257 lb 11.5 oz) 01/31/2023 7:59 PM TRANSPORTATION DESIGN ENGINEER Height 172.7 cm (5' 8 ) 04/18/2024 2:15 PM TRANSPORTATION DESIGN ENGINEER Body Mass Index 39.19 01/31/2023 7:59 PM TRANSPORTATION DESIGN ENGINEER Plan of Treatment Health Maintenance Due Date Last Done Comments Albumin Creatinine Ratio, Urine 1994 Cervical Cancer Screening 1994 Depression Screening 1994 Hepatitis C Screening 1994 TSH Level 1994 Varicella Vaccines (2 of 2 - 13+ 2-dose series) 11/11/2008 10/14/2008 Regular Well Visit/Exam 18-64 2012 Pneumococcal vaccine <65 (2 of 2 - PCV) 05/15/2017 05/15/2016, 11/26/2015 DTaP/Tdap/Td Vaccine (7 - Td or Tdap) 10/14/2018 10/14/2008, 06/02/1999, 11/24/1995, Additional history exists Lipid Panel 05/02/2022 05/02/2021 Influenza Vaccine (#1) 2023 , 12/13/2015, 11/26/2015, Additional history exists Hemoglobin A1C 10/16/2024 04/18/2024 eGFR 01/08/2025 01/09/2024, 11/0 10/2022, 01/31/2023, Additional history exists Foot Exam 04/18/2025 04/18/2024 Dilated Eye Exam 12/13/2025 12/14/2023 HPV Vaccines Completed 04/27/2009, 11/26, 10/14/2008 Procedures Procedure Name Priority Date/Time Associated Diagnosis Comments POCT HEMOGLOBIN A1C Routine 04/18/2024 2 :35 PM TRANSPORTATION DESIGN ENGINEER Type 1 diabetes mellitus with other specified complication (HCC) DIABETIC EYE EXAM Routine 12/14/2023 EGFR Routine 02/01/2023 6:56 AM TRANSPORTATION DESIGN ENGINEER from Last 3 Months or Most Recently Relevant to Health Maintenance Results * (ABNORMAL) POCT hemoglobin A1c (04/18/2024 2:35 PM TRANSPORTATION DESIGN ENGINEER) Hemoglobin A1C, POC 8.1 4.0 - 5.6 % Blood 04/18/2024 2:35 PM TRANSPORTATION DESIGN ENGINEER Cathy Sterling DO POINT OF CARE TEST ORDERABL ES Final Result * Diabetic Eye Exam (12/14/2023) 12/14/2023 [facility] Provider HEALTH MAINTENANCE Final Result * eGFR (02/01/2023 6:56 AM TRANSPORTATION DESIGN ENGINEER) eGFR 121 mL/min/1. 73 m2 [facility] [...] last reviewed 2021. Blood 02/01/2023 6:56 AM TRANSPORTATION DESIGN ENGINEER 02/01/2023 7:14 AM TRANSPORTATION DESIGN ENGINEER Elba Esparza MD LAB BLOOD ORDERABLES Fin al Result [facility] ([place]) [facility] Department of Laboratories [place] [id number] from Last 3 Months or Most Recently Relevant to Health Maintenance Insurance [facility] Advance Directives For more information, please contact: [phone] * Full Code (Latest Code Status on File) Date Activated Date Inactivated Comments 01/31/2023 6:56 PM 02/02/2023 4:24 PM Care Teams Embroidery Assistant Relationship Specialty Start Date End Date Gustavo Heck MD PCP - General Family Practice 09/08/22 Matt Caldwell DO 09/08/22 Kole Lizama MD [address] [place] [address] DR [place] [place] [id number] Consulting Physician Gastroenterology 02/02/23
--- NOTE | 2024-05-05 12:25 | ED_ITS ---
HPI - Ear Problem General Chief complaint: Ear Stated complaint: Ears Time Seen by Provider: 05/05/24 12:25 Source: patient, RN notes reviewed and old records reviewed Mode of arrival: ambulatory Limitations: no limitations History of Present Illness HPI Narrative: patient presents with complaints of right ear pain that began this morning. She denies any injury or trauma. She denies any fever, chills, sweats. She reports that she has muffled hearing and that discomfort is causing her to be unable to concentrate as she usually does. She voices no other concerns or complaints today Related Data Home Medications ?Medication ?Instructions ?Recorded ?Confirmed ?Last Taken ?Type gabapentin 300 mg capsule 300 mg PO TID 05/12/21 01/11/24 Unknown History calcium carbonate (Tums) 200 mg PO BID 09/28/21 01/11/24 Unknown History etonogestrel 68 mg subdermal 1 implant subdermal ONCE 01/04/23 01/11/24 Unknown History implant (Nexplanon) clonazepam 1 mg tablet mg 05/05/24 Unknown History nitrofurantoin 05/05/24 Unknown History monohydrate/macrocrystals 100 mg capsule vortioxetine 20 mg tablet mg 05/05/24 Unknown History (Trintellix) Allergies Allergy/AdvReac Type Severity Reaction Status Date / Time codeine Allergy Unknown Palpitation Verified 05/05/24 11:49 s insulin glargine (From AdvReac Unknown severe Verified 05/05/24 11:49 Lantus U-100 Insulin) bruising Review of Systems Review of Systems: All systems reviewed & are unremarkable except as noted in HPI and below Constitutional: Constitutional: Reports no additional constitutional complaints ENT: Reports system reviewed and no additional complaints, except as documented, Reports otalgia and Reports hearing loss Cardiovascular: Cardiovascular: Reports no additional cardiovascular complaints Respiratory: Respiratory: Reports no additional respiratory complaints Gastrointestinal: Gastrointestinal: Reports no additional gastrointestinal complaints [facility] Past Medical History Medical History (Updated 05/05/24 @ 12:30 by Nerissa Montenegro APRN) Diabetic polyneuropathy Seizure disorder Gas bloat syndrome Early satiety Irritable bowel syndrome with constipation Chronic nausea Blood in mouth of unknown source Morbid obesity Pelvic mass in female Long-term insulin use Type 1 diabetes mellitus without complication Thoracic sprain Paronychia of left middle finger Noncompliance Nausea Diabetic ketoacidosis Cellulitis Bloating Bladder stone Bipolar depression Anxiety Alternating constipation and diarrhea Acute cystitis without hematuria Acute bilateral low back pain without sciatica H/O nephrolithotomy with removal of calculi Depression Nexplanon in place Gastric dysmotility Type 1 diabetes mellitus with hyperglycemia, with long-term current use of insulin Hyperlipidemia, unspecified (03/12/18) Albuminuria H/O renal calculi Hepatomegaly 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 Other Family history of hearing loss Family history of malignant neoplasm Family history of obesity Family history of osteoporosis Social History Social History Smoking packs per day: 0 Smoking cigarettes per day: 0.0 Years smoked: 0 Smoking pack-years: 0.00 Smoking status: Never smoker Second hand tobacco smoke exposure: Yes Alcohol intake: current Alcohol use details: maybe 3-4 times a year Substance use: current Substance use type: marijuana Do You Feel Safe in your Home?: Yes Lack of Transportation: YES Lack of Food: Sometimes True Current Housing: I Have Housing Concerned About Future Housing: Decline to Answer Difficulty Paying Gas/Electric Bills: YES Difficulty Paying for Meds: No Currently Unemployed: Decline to Answer Education: High School Diploma/GED Difficulty w/ Childcare or Family Care: No Living arrangements: with family Occupation/Education: other Additional occupation/education comments: Disabled Gender identity (if verbalized by the patient): Female Comments At the time of my signature, I reviewed and agree with the nursing past medical, surgical, social, and family history. There is no relevant family history pertinent to the patient complaint. Exam Const: General: cooperative, no acute distress, alert and awake Orientation/consciousness: oriented to person, oriented to place and oriented to time HENMT: Head: normal to inspection Ears: TM's normal bilaterally and Abnormal EAC present erythema on the right and edema on the right Resp: Effort & Inspection: normal respiratory effort and able to speak in complete sentences Auscultation: clear to auscultation bilaterally, no crackles, no rales, no rhonchi and no wheezes Cardio: Palpation: normal PMI Rate: regular rate Rhythm: regular rhythm Heart sounds: S1 normal heart sound present and S2 normal heart sound present Neuro: General: oriented to person, oriented to place and oriented to time Cranial nerves: Yes CN's II-XII intact bilaterally Psych: Appearance: grossly normal Thought process: Normal thought process present Insight: Good insight present (Psych) Judgement: Good judgement present (Psych) Course Course Level of Care: Express Care Visit Vital Signs Vital signs: Vital Signs Temperature 99.4 F 05/05/24 11:40 Pulse Rate 107 H 05/05/24 11:40 Respiratory Rate 20 05/05/24 11:40 Blood Pressure 158/89 H 05/05/24 11:40 Pulse Oximetry 97 05/05/24 11:40 Oxygen Delivery Room Air 05/05/24 11:40 Temperature 99.4 F 05/05/24 11:40 Pulse Rate 107 H 05/05/24 11:40 Respiratory Rate 05/05/24 11:40 Blood Pressure 158/89 H 05/05/24 11:40 Pulse Oximetry 97 05/05/24 11:40 Oxygen Delivery Room Air 05/05/24 11:40 Reviewed Medical Decision Making MDM Narrative Medical decision making narrative: history and exam consistent with otitis media. Patient nontoxic appearing, stable for discharge home on otic antibiotic therapy Discharge instructions reviewed with patient, as well as provided in writing per nursing staff. The instructions also include specific and strict return/GO TO THE ER as well as f/u information. All questions have been answered, and the patient deny any further questions with discharge and discharge plan. Some parts of this dictation were generated by voice recognition software and may contain typographical and/or grammatical inaccuracies. Differential Diagnosis Differential Diagnosis: otitis media, otitis externa Medical Records Medical records reviewed: Yes I reviewed the external patient's medical records. Vital Signs Vital Signs: Vital Signs Temperature 99.4 F 05/05/24 11:40 Pulse Rate 107 H 05/05/24 11:40 Respiratory Rate 05/05/24 11:40 Blood Pressure 158/89 H 05/05/24 11:40 Pulse Oximetry 97 05/05/24 11:40 Oxygen Delivery Room Air 05/05/24 11:40 Temperature 99.4 F 05/05/24 11:40 Pulse Rate 107 H 05/05/24 11:40 Respiratory Rate 20 05/05/24 11:40 Blood Pressure 158/89 H 05/05/24 11:40 Pulse Oximetry 97 05/05/24 11:40 Oxygen Delivery Room Air 05/05/24 11:40 reviewed Lab Data Lab results reviewed: Yes I reviewed the patient's lab results. Lab results narrative: reviewed Discharge Plan Discharge Clinical Impression: Otitis externa Qualifiers: Otitis externa type: unspecified type Chronicity: acute Laterality: right Qualified Code(s): H60.501 - Unspecified acute noninfective otitis externa, right ear Patient Disposition: Home, Self-Care Condition: Stable Instructions: Antibiotic Form, Swimmer's Ear (ED) Additional Instructions: use all medications as prescribed. Follow with primary care provider. Emergency department for new or worse symptoms Patient Language: Danish Prescriptions: New ciprofloxacin-dexamethasone 0.3-0.1 % drops,suspension 4 drp RIGHT EAR Q12H 7 Days Qty: 7.5 0RF No Action clonazepam 1 mg tablet nitrofurantoin monohyd/m-cryst 100 mg capsule Trintellix 20 mg tablet gabapentin 300 mg capsule 300 mg PO TID ondansetron HCl 8 mg tablet 8 mg PO Q8H Qty: 60 3RF Gvoke HypoPen 2-Pack 1 mg/0.2 mL auto-injector 1 mg subcut ONCE Qty: 0.4 3RF Rx Instructions: may repeat once after 15 minutes if no response pantoprazole 40 mg tablet,delayed release (DR/EC) 40 mg PO BID Qty: 60 6RF buspirone 10 mg tablet 10 mg PO TID Qty: 90 3RF Rx Instructions: TID 30 min prior to meals calcium carbonate [Tums] 200 mg calcium (500 mg) tablet,chewable 200 mg PO BID Nexplanon 68 mg implant 1 implant subdermal ONCE Rx Instructions: as a single dose (DME) blood-glucose meter [Accu-Chek Guide Glucose Meter] Misc See Rx Instructions .Route Qty: 1 0RF Rx Instructions: As directed (DME) Accu-Chek Guide test strips Strip See Rx Instructions .Route Qty: 300 1RF Rx Instructions: check 3 times a day (DME) lancing device with lancets [Accu-Chek Soft Dev Lancets] Kit See Rx Instructions .Route Qty: 1 0RF Rx Instructions: check 3 times daily (DME) lancets [Accu-Chek Softclix Lancets] Misc See Rx Instructions .Route Qty: 300 1RF Rx Instructions: check three times a day ibuprofen 800 mg tablet 800 mg PO TID PRN (Reason: pain) Qty: 30 0RF (DME) Ketone Urine Test Strip See Rx Instructions .Route Qty: 100 4RF Rx Instructions: As directed, daily prn (DME) Dexcom G6 Lineworker Misc See Rx Instructions .MEDSUPPLY Qty: 1 0RF Rx Instructions: Use to check blood sugar atorvastatin 80 mg tablet 80 mg PO DAILY Qty: 90 2RF (DME) lancets [OneTouch Delica Plus Lancet] 33 gauge misc See Rx Instructions .Route Qty: 100 11RF Rx Instructions: As directed lisinopril 5 mg tablet See Rx Instructions .ROUTE .COMPLEX Qty: 90 2RF Dose Instruction: Take 1 tablet by mouth daily Rx Instructions: Take 1 tablet by mouth daily montelukast [Singulair] 10 mg tablet 10 mg PO QHS Qty: 90 1RF lamotrigine 200 mg tablet 200 mg PO BID Qty: 60 5RF (DME) OneTouch Verio test strips Strip See Rx Instructions .Route Qty: 400 4RF Rx Instructions: Check glucose 4 times daily ondansetron 4 mg tablet,disintegrating 4 mg PO Q6H PRN (Reason: nausea and vomiting) Qty: 120 1RF metoprolol succinate [Toprol XL] 25 mg tablet extended release 24 hr 25 mg PO DAILY Qty: 90 2RF albuterol sulfate 90 mcg/actuation HFA aerosol inhaler 1 inh inhalation Q4H PRN (Reason: bronchospasm) Qty: 17 12RF fluticasone propion-salmeterol [Advair HFA] 115-21 mcg/actuation HFA aerosol inhaler 2 puff inhalation BID Qty: 12 5RF Rx Instructions: administer with spacer (DME) insulin pump cart,automated,BT Cartridge See Rx Instructions .ROUTE .MEDSUPPLY Qty: 45 3RF Rx Instructions: change every 48 hours. Please rx G7 Pod (DME) Dexcom G6 Sensor Device See Rx Instructions .ROUTE .COMPLEX Qty: 9 1RF Dose Instruction: APPLY 1 SENSOR TOPICALLY AND REPLACE EVERY 10 DAYS Rx Instructions: APPLY 1 SENSOR TOPICALLY AND REPLACE EVERY 10 DAYS (DME) Dexcom G6 Transmitter Device See Rx Instructions .MEDSUPPLY Qty: 3 3RF Rx Instructions: replace every 90 days insulin lispro [Humalog U-100 Insulin] 100 unit/mL solution 120 unit continuous subcutaneous infusion DAILY 90 Days Qty: 110 2RF Rx Instructions: Max daily dose: 120 units/day Follow-up/Referrals: Gustavo Heck MD [Primary Care Provider] - 2 Weeks Time of Disposition: 12:31
== END 2024-05-05 12:35 | disposition home or self-care (01) ==
PROVIDERS: Emergency Provider Nurse Practitioner Family; PCP Family Medicine
DX: H60.501 Unspecified acute noninfective otitis externa, right ear (principal); E10.65 Type 1 diabetes mellitus with hyperglycemia; Z79.4 Long term (current) use of insulin; E10.49 Type 1 diabetes mellitus with other diabetic neurological complication; G62.9 Polyneuropathy, unspecified; E78.5 Hyperlipidemia, unspecified; E66.01 Morbid (severe) obesity due to excess calories; K21.9 Gastro-esophageal reflux disease without esophagitis
CPT/HCPCS: 99213; G0463

== ENCOUNTER 2024-06-28 09:50 | Outpatient (CLI) | payer OTHER, SELFPAY ==
--- NOTE | ~2024-06-28 | US_ITS ---
EXAMINATION: US pelvic complete w TV INDICATION: Pelvic pain Comparison:No prior studies for comparison. TECHNIQUE: Multiple transabdominal and endovaginal sonographic images of the pelvis performed. FINDINGS: The uterus measures 7 x 2.9 x 3.5 cm. The endometrial complex measures 6 mm. The right ovary measures 2.1 x 2.8 x 2 cm and the left ovary measures 2.9 x 2 x 2.4 cm. There are sm all follicles in each ovary. Normal doppler signal in both ovaries. There is no free fluid in the pelvis. There are no abnormal masses seen on either side. IMPRESSION: 1. Unremarkable pelvic ultrasound. Reviewed, dictated and finalized at location A.
--- OUTSIDE RECORDS SUMMARY | 2024-06-28 10:11 | XMS_ITS | Clinical Summary ---
Author Organization [facility] Address [address] [place] [address] Phone Care Team Providers Care Cytogenetic Technician Name Role Phone Campbell Jeffries DPM Unavailable [phone] Gustavo Heck MD Primary Care Provider [phone] Tanvir Hughes MD Unavailable [phone] Allergies Active Allergy Reactions Criticality Noted Date [...] SC) by Subcutaneous route. Active Continuous Glucose Ribbon Hand (Dexcom G6 Ribbon Hand) Device by Does not apply route. Active [...] diabetes mellitus 02/27/2016 02/28/2016 Hypokalemia 02/27/2016 02/28/2016 Immunizations Immunization Administration Dates Next Due Influenza [...] Comments Blood Pressure 124/70 03/04/2024 10:02 AM CREW CALLER Pulse 103 03/04/2024 10:02 AM CREW CALLER Temperature 36.3 C (97.4 F) 03/04/2024 10:02 AM CREW CALLER Respiratory Rate 18 03/04/2024 10:02 AM CREW CALLER Oxygen Saturation 96% 03/04/2024 10:02 AM CREW CALLER Inhaled Oxygen Concentration - - Weight 129.3 kg (285 lb) 03/04/2024 10:02 AM CREW CALLER Height 172.7 cm (5' 8 ) 03/04/2024 10:02 AM CREW CALLER Body Mass Index 43.33 03/04/2024 10:02 AM CREW CALLER Plan of Treatment Upcoming Encounters Date Type Department Care Team (Late st Contact Info) Description 08/26/2024 8:30 AM CDT [facility] [address] [place] [address] Joslyn Llanos, FEATHER SAWYER, PIPING ENGINEER [address] [place] [address] Health Maintenance Due Date Last Done Comments Diabetes: Eye Exam 1994 Diabetes: Foot Exam 1994 Hepatitis C Virus (HCV) Screening 1994 Hepatitis B Immunization (2 of 3 - 3-dose series) 03/21/1995 02/21/1995 Pap Smear 2015 Pneumococcal Immunization Combined (2 of 2 - PCV) 05/15/2017 05/15/2016, 11/26/2015 Diabetes: Hemoglobin A1c 10/30/2021 022, 06/23/2018, 06/23/2018, Additional history exists Diabetes: Nephropathy Screening 11/25/2023 11/24/2022, 11/15/2022, 12/05/2021, Additional history exists Influenza Immunization (#1) 11/26/20230 08/2022, 01/13/2021, 12/13/2015, Additional history exists SARS-COV-2 Immunization ( season) 2023 01/30/2023, 01/24/2021, 06/02/2020 Cervical Cancer Screening (CCS) 2024 HPV/Cotest 2024 Respiratory Syncytial Virus (RSV) Immunization (Adult) (1 [...] - 145 mmol/L 11/24/2022 7:03 AM CDT [facility] POTASSIUM 4.7 3.5 - 5.1 mmol/L 11/24/2022 7:03 AM CDT [facility] CHLORIDE 101 98 - 107 mmol/L 11/24/2022 7:03 AM CDT [facility] CO2, VENOUS 25 22 - 30 mmol/L 11/24/2022 7:03 AM CDT [facility] ANION GAP 13.7 <18.0 mmol/L 11/24/2022 7:03 AM CDT [facility] GLUCOSE 250(H) 70 - 99 mg/dL 11/24/2022 7:03 AM CDT [facility] BUN 9 5 - 18 mg/dL 11/24/2022 7:03 AM CDT [facility] CREATININE, BLOOD 0.83 0.60 - 1.00 mg/dL 11/24/2022 7:03 AM CDT [facility] BUN/CREATININE RATIO 11(L) 12 - 20 ratio 11/24/2022 7:03 AM CDT [facility] TOTAL PROTEIN 7.4 6.3 - 8.2 g/dL 11/24/2022 7:03 AM CDT [facility] ALBUMIN 4.2 3.5 - 5.0 g/dL 11/24/2022 7:03 AM CDT [facility] A/G RATIO 1.3 1.0 - 2.2 11/24/2022 7:03 AM CDT [facility] CALCIUM 8.7 8.7 - 10.5 mg/dL 11/24/2022 7:03 AM CDT [facility] T BILI 0.5 0.2 - 1.2 mg/dL 11/24/2022 7:03 AM CDT [facility] SGOT (AST) 14 5 - 34 U/L 11/24/2022 7:03 AM CDT [facility] SGPT (ALT) 14 0 - 55 U/L 11/24/2022 7:03 AM CDT [facility] ALKALINE PHOSPHATASE 102 40 - 150 U/L 11/24/2022 7:03 AM CDT [facility] GFR, ESTIMATED >60 >=60 11/24/2022 7:03 AM CDT [facility] Comment: Creatinine Clearance is the preferred criteria for selecting drug dose adjustments in renally impaired patients. The GFR is provided as additional pertinent clinical information. GFR is reported in mL/min/1.73 sq m. Calculation based on the Chronic Kidney Disease Epidemiology Collaboration (CKD- EPI) equation refit without adjustment for race. GFR, EST. >60 >=60 023 7:03 AM CDT [facility] GFR, EST. NONAFRICAN >60 >=60 11/24/2022 7:03 AM CDT [facility] Blood Venipuncture / Unknown 11/24/2022 6:27 AM CDT 11/24/2022 6:34 AM CDT us Sohan Teresa MD CHEMISTRY ORDERABLES Final Resul t [facility] [address] [place] [address] * (ABNORMAL) Hemoglobin A1C (06/23/2018 3:38 PM CDT) HGB-A1C 10.4(H) 4.0 - 6.0 % 06/23/2018 3:58 PM CDT [facility] Est Average Glucose 251.8 mg/dL 06/23/2018 3:58 PM CDT [facility] Blood specimen (specimen) Venipuncture / Unknown 06/23/2018 3:38 PM CDT 06/23/2018 3:38 PM CDT Narrative [facility] - 06/23/2018 3:58 PM CDT HEMOGLOBIN A1C: DIABETIC PATIENTS: WELL-CONTROLLED: 6.2 - 7.0 INTERMEDIATE WELL-CONTROLLED: 7.0 - 9.0 POORLY-CONTROLLED: >9.0 us Loyd Lazar MD CHEMISTRY ORDERABLES Final Result [facility] [address] [place] [address] from Last 3 Months or Most Recently Relevant to Health Maintenance Insurance MEDICAID [place] Advance Directives * Full Code (Latest Code [...] measures to stabilize the patient. Care Teams Cytogenetic Technician Relationship Specialty Start Date End Date Gustavo Heck MD [address] [place] [id number] PCP - General Family Medicine 12/05/21 Campbell Jeffries DPM Consulting Physician Podiatry 06/28/16 Tanvir Hughes MD [address] [place] [address] Consulting Physician Neurology 11/30/23
--- OUTSIDE RECORDS SUMMARY | 2024-06-28 10:11 | XMS_ITS | Clinical Summary ---
Author Organization [facility] Address [address] [place] [address] Phone Care Team Providers Care Landscaping And Groundskeeping Laborer Name Role Phone Gustavo Heck MD Primary Care Provider [phone] Allergies Active Allergy Reactions Criticality Noted Date [...] Comments Blood Pressure 148/90 05/04/2021 8:15 AM BEHAVIORAL HEALTH TECH Pulse 99 05/04/2021 8:15 AM BEHAVIORAL HEALTH TECH Temperature 36.2 C (97.2 F) 05/04/2021 8:15 AM BEHAVIORAL HEALTH TECH Respiratory Rate 18 05/04/2021 8:15 AM BEHAVIORAL HEALTH TECH Oxygen Saturation 98% 05/04/2021 8:15 AM BEHAVIORAL HEALTH TECH Inhaled Oxygen Concentration - - Weight 101.6 kg (224 lb) 05/02/2021 11:01 PM BEHAVIORAL HEALTH TECH Height 172.7 cm (5' 8 ) 05/02/2021 11:01 PM BEHAVIORAL HEALTH TECH Body Mass Index 34.06 05/02/2021 11:01 PM BEHAVIORAL HEALTH TECH Plan of Treatment Health Maintenance Due Date Last Done Comments DIABETES ANNUAL FOOT EXAM 2012 DIABETES ANNUAL RETINAL EXAM 2012 DIABETES MICROALBUMIN ANNUAL SCREEN 2012 DTAP/TDAP/TD VACCINES (1 - Tdap) 2013 HEPATITIS B VACCINES (1 of 3 - 19+ 3-dose series) 2013 HPV/Cotest (21-29) 2015 PAP SMEAR 08/30/2020 08/30/2017 DIABETES HBA1C Q 6 MONTHS 10/30/20212021, 02/23/2018, 11/23/2017, Additional history exists LDL CHOLESTEROL ANNUAL 05/02/2022 , 11/23/2017, 10/13/2016 INFLUENZA VACCINE (#1) 2023 12/13/2015 CERVICAL CANCER SCREENING 2024 HPV/Cotest (30-65) 2024 PAP SMEAR 2024 08/30/2017 HPV VACCINES Aged Out No longer eligi ble based on patient's age to complete this topic Procedures Procedure Name Priority Date/Time Associated Diagnosis Comments LIPID PANEL Routine 05/02/2021 5:21 PM BEHAVIORAL HEALTH TECH HEMOGLOBIN A1C Routine 05/02/2021 5:21 PM BEHAVIORAL HEALTH TECH from Last 3 Months or Most Recently Relevant to Health Maintenance Results * (ABNORMAL) HEMOGLOBIN A1C (05/02/2021 5:21 PM BEHAVIORAL HEALTH TECH) HEMOGLOBIN A1C 7.8(H) <5.7 % 05/03/2021 9:42 AM BEHAVIORAL HEALTH TECH [facility] EST. AVG GLUCOSE, A1C 177 mg/dL 05/03/2021 9:42 AM BEHAVIORAL HEALTH TECH [facility] Blood Venipuncture / Unknown 05/02/2021 5:21 PM BEHAVIORAL HEALTH TECH 05/02/2021 5:23 PM BEHAVIORAL HEALTH TECH Narrative [facility] - 05/03/2021 9:42 AM BEHAVIORAL HEALTH TECH HGB A1C INTERPRETATION NORMAL: <5.7% PRE-DIABETES: 5.7 - 6.4% DIABETES: 6.5% OR GREATER us Keysha Pelletier MD CHEMISTRY ORDERABLES Final Resul t [facility] [employer] [facility] CLIA# [id number] [address] [place] [address] * (ABNORMAL) LIPID PANEL (05/02/2021 5:21 PM [facility]) CHOLESTEROL 227(H) <200 mg/dL 05/03/2021 12:47 PM [facility] [employer] [facility] TRIGLYCERIDE 73 <150 mg/dL 05/03/2021 12:47 PM [facility] HDL 46 40 - 59 mg/dL 05/03/2021 12:47 PM [facility] LDL CALCULATED 166(H) <100 mg/dL 05/03/2021 12:47 PM [facility] NON-HDL CHOLESTEROL 181(H) <130 mg/dL 05/03/2021 12:47 PM [facility] [employer] [facility] Blood Venipuncture / Unknown 05/02/2021 5:21 PM BEHAVIORAL HEALTH TECH 05/02/2021 5:24 PM [facility] - 05/03/2021 12:47 PM BEHAVIORAL HEALTH TECH TOTAL CHOLESTEROL mg/dL Desirable <200 Borderline high [...] . us Raghav Gutierrez MD CHEMISTRY ORDERABLES Fi nal Result [facility] [employer] [facility]# [id number] [address] [place] [address] from Last 3 Months or Most Recently Relevant to Health Maintenance Advance Directives For more information, please contact: [phone] * Full Code (Latest Code Status on [...] 7:38 PM 04/03/2017 3:02 PM Care Teams Landscaping And Groundskeeping Laborer Relationship Specialty Start Date End Date Gustavo Heck MD PCP - General Family Practice 05/02/21
--- OUTSIDE RECORDS SUMMARY | 2024-06-28 10:11 | XMS_ITS | Referral Summary ---
Author Organization [facility] Address [address] [place] [address] Care Team Providers Care X Ray Developing Machine Operator Name Role Phone Gustavo Heck MD Primary Care Provider [phone] Matt Caldwell DO Unavailable [phone] Kole Lizama MD Unavailable Encounters Date Type Department Care Team Description 04/18/2024 2:30 PM SUPERVISOR BOTTLE MACHINES Office Visit [facility] Medical [facility] Diabetes Endocrine Care at [address] [place] [phone] Cathy Sterling DO Type 1 diabetes [...] diabetes mellitus with hyperglycemia 10/2022 Breakthrough seizure 01/31/2023 Epilepsy undetermined as to focal or generalized 09/13/2022 Diabetic ketoacidosis withou t coma associated with type 1 diabetes mellitus 07/30/2020 Volume depletion 07/30/2020 Depression 07/30/2020 Immunizations Immunization Administration Dates Next Due Influenza, Unspecified 01/30/2023 Social History Tobacco Use Types Packs/Day Years Used Date Smoking Tobacco: Never Tobacco Cessation:Counseling Given: Not Answered [facility] Utilities Answer Date Recorded In the past 12 months has [employer], gas, oil, or water [employer] threatened to shut off services in your [...] week 02/01/2023 How often do you attend [facility] or taoism services? Never 02/01/2023 Do you belong to any clubs o r organizations such as buddhism groups, unions, fraternal or athletic groups, or [...] place to sleep or slept in a intermediate (including now)? No 02/01/2023 Personal Safety Answer [...] on file Legal Sex Female 8:34 AM SUPERVISOR BOTTLE MACHINES Gender Identity Female 09/30/2022 7:52 PM CDT Sexual Orientation Straight 09/30/2022 7: 52 PM CDT Last Filed Vital Signs Vital Sign Reading Time Taken Comments Blood Pressure 130/82 04/18/2024 2:15 PM SUPERVISOR BOTTLE MACHINES Pulse 117 04/18/2024 2:15 PM SUPERVISOR BOTTLE MACHINES Temperature 36.4 C (97.6 F) 02/02/2023 7:30 AM SUPERVISOR BOTTLE MACHINES Respiratory Rate 18 02/02/2023 7:30 AM SUPERVISOR BOTTLE MACHINES Oxygen Saturation 98% 02/02/2023 7:30 AM SUPERVISOR BOTTLE MACHINES Inhaled Oxygen Concentration - - Weight 116.9 kg (257 lb 11.5 oz) 01/31/2023 7:59 PM SUPERVISOR BOTTLE MACHINES Height 172.7 cm (5' 8 ) 04/18/2024 2:15 PM SUPERVISOR BOTTLE MACHINES Body Mass Index 39.19 01/31/2023 7:59 PM SUPERVISOR BOTTLE MACHINES Plan of Treatment Not on file Procedures Procedure Name Priority Date/Time Associated Diagnosis Comments POCT HEMOGLOBIN A1C Routine 04/18/2024 2 :35 PM SUPERVISOR BOTTLE MACHINES Type 1 diabetes mellitus with other specified complication (HCC) DIABETIC EYE EXAM Routine 12/14/2023 EGFR Routine 02/01/2023 6:56 AM SUPERVISOR BOTTLE MACHINES from Last 3 Months or Most Recently Relevant to Health Maintenance Results * (ABNORMAL) POCT hemoglobin A1c (04/18/2024 2:35 PM SUPERVISOR BOTTLE MACHINES) Hemoglobin A1C, POC 8.1 4.0 - 5.6 % Blood 04/18/2024 2:35 PM SUPERVISOR BOTTLE MACHINES Cathy Sterling DO POINT OF CARE TEST ORDERABL ES Final Result * Diabetic Eye Exam (12/14/2023) 12/14/2023 Historical Provider HEALTH MAINTENANCE Final Result * eGFR (02/01/2023 6:56 AM SUPERVISOR BOTTLE MACHINES) eGFR 121 mL/min/1. 73 m2 AMANDA VEGA [...] last reviewed 2021. Blood 02/01/2023 6:56 AM SUPERVISOR BOTTLE MACHINES 02/01/2023 7:14 AM SUPERVISOR BOTTLE MACHINES Elba Esparza MD LAB BLOOD ORDERABLES Fin al Result [facility] [place] [address] from Last 3 Months or Most Recently Relevant to Health Maintenance Insurance [facility] Advance Directives For more information, please contact: [phone] * Full Code (Latest Code Status on File) Date Activated Date Inactivated Comments 01/31/2023 6:56 PM 02/02/2023 4:24 PM Care Teams X Ray Developing Machine Operator Relationship Specialty Start Date End Date Gustavo Heck MD PCP - General Family Practice 09/08/22 Matt Caldwell DO 09/08/22 Kole Lizama MD [address] [place] [address] DR TILLMAN [address] [place] [id number] Consulting Physician Gastroenterology 02/02/23
--- OUTSIDE RECORDS SUMMARY | 2024-06-28 10:11 | XMS_ITS | Clinical Summary ---
Author Organization [facility] Address [address] [place] [address] Care Team Providers Care Metalizer Name Role Phone Gustavo Heck MD Primary Care Provider [phone] Matt Caldwell DO Unavailable [phone] Kole Lizama MD Unavailable Allergies Active Allergy [...] blood glucose above 250 100 strip 11 Active Active Problems Problem Noted Date Diagnosed Date Type 1 diabetes mellitus with hyperglycemia 10/2022 Breakthrough seizure 01/31/2023 Epilepsy undetermined as to focal or generalized 09/13/2022 Diabetic ketoacidosis withou t coma associated with type 1 diabetes mellitus 07/30/2020 Volume depletion 07/30/2020 Depression 07/30/2020 Encounters Date Type Department Care Team Description 04/18/2024 2:30 PM ROLLED SEAT TRIMMER Office Visit [facility] Medical Group Diabetes Endocrine Care at [address] [place] [phone] Cathy Sterling, DO Type 1 diabetes mellitus with other specified complication (HCC) from Last 3 Months Immunizations Immunization Administration Dates Next Due Influenza, Unspecified 01/30/2023 Surgical History Surgery Date Site/Laterality Comments LITHOTRIPSY Medical History Medical History Date Comments Diabetes mellitus (HCC) High cholesterol Supraventricular tachycardia Diabetes mellitus type I (HCC) Hyperlipidemia Hypertension Anxiety Depression Seizures (HCC) Asthma Family History Medical History Relation Name Comments Diabetes Father Heart disease Father Depression Mother Diabetes Mother Heart disease Mother Hyperlipidemia Mother Multiple sclerosis Mother Relation Name Status Comments Father Mother Social History Tobacco Use Types Packs/Day Years Used Date Smoking Tobacco: Never Tobacco Cessation:Counseling Given: Not Answered [facility] Utilities Answer Date Recorded In the past 12 months has [employer], gas, oil, or water [employer] threatened to shut off services in your [...] often do you attend chur ch or catholic services? Never 02/01/2023 Do you belong to any clubs o r organizations such as voodoo groups, unions, fraternal or athletic groups, or [...] place to sleep or slept in a assisted (including now)? No 02/01/2023 Personal Safety Answer [...] on file Legal Sex Female 8:34 AM ROLLED SEAT TRIMMER Gender Identity Female 09/30/2022 7:52 PM CDT Sexual Orientation Straight 09/30/2022 7: 52 PM CDT Obstetrics History Last Filed Vital Signs Vital Sign Reading Time Taken Comments Blood Pressure 130/82 04/18/2024 2:15 PM ROLLED SEAT TRIMMER Pulse 117 04/18/2024 2:15 PM ROLLED SEAT TRIMMER Temperature 36.4 C (97.6 F) 02/02/2023 7:30 AM ROLLED SEAT TRIMMER Respiratory Rate 18 02/02/2023 7:30 AM ROLLED SEAT TRIMMER Oxygen Saturation 98% 02/02/2023 7:30 AM ROLLED SEAT TRIMMER Inhaled Oxygen Concentration - - Weight 116.9 kg (257 lb 11.5 oz) 01/31/2023 7:59 PM ROLLED SEAT TRIMMER Height 172.7 cm (5' 8 ) 04/18/2024 2:15 PM ROLLED SEAT TRIMMER Body Mass Index 39.19 01/31/2023 7:59 PM ROLLED SEAT TRIMMER Plan of Treatment Health Maintenance Due Date [...] 11/26/2015, Additional history exists Hemoglobin A1C 10/16/2024 04/18/2024, 02/0 08/2021, 11/23/2017 eGFR 01/08/2025 01/09/2024, 110 10/2022, 01/31/2023, Additional history exists Foot Exam 04/18/2025 04/18/2024 Dilated Eye Exam 12/13/2025 12/14/2023 Hepatitis B Screening Completed 02/21/1995 HPV Vaccines Completed 04/27/2009, 11/26, 10/14/2008 Procedures Procedure Name Priority Date/Time Associated Diagnosis Comments POCT HEMOGLOBIN A1C Routine 04/18/2024 2 :35 PM ROLLED SEAT TRIMMER Type 1 diabetes mellitus with other specified complication (HCC) DIABETIC EYE EXAM Routine 12/14/2023 EGFR Routine 02/01/2023 6:56 AM ROLLED SEAT TRIMMER from Last 3 Months or Most Recently Relevant to Health Maintenance Results * (ABNORMAL) POCT hemoglobin A1c (04/18/2024 2:35 PM ROLLED SEAT TRIMMER) Hemoglobin A1C, POC 8.1 4.0 - 5.6 % Blood 04/18/2024 2:35 PM ROLLED SEAT TRIMMER Cathy Sterling DO POINT OF CARE TEST ORDERABL ES Final Result * Diabetic Eye Exam (12/14/2023) 12/14/2023 Historical Provider HEALTH MAINTENANCE Final Result * eGFR (02/01/2023 6:56 AM ROLLED SEAT TRIMMER) eGFR 121 mL/min/1. 73 m2 AMANDA VEGA [...] last reviewed 2021. Blood 02/01/2023 6:56 AM ROLLED SEAT TRIMMER 02/01/2023 7:14 AM ROLLED SEAT TRIMMER Elba Esparza MD LAB BLOOD ORDERABLES Fin al Result [facility] ([facility] 1 [facility] Department of Laboratories [place], [place] [id number] from Last 3 Months or Most Recently Relevant to Health Maintenance Insurance [facility] Advance Directives For more information, please contact: [phone] * Full Code (Latest Code Status on File) Date Activated Date Inactivated Comments 01/31/2023 6:56 PM 02/02/2023 4:24 PM Care Teams Metalizer Relationship Specialty Start Date End Date Gustavo Heck MD PCP - General Family Practice 09/08/22 Matt Caldwell DO 09/08/22 Kole Lizama MD [address] [place] [address] DR TILLMAN [address] [place] [id number] Consulting Physician Gastroenterology 02/02/23
== END 2024-06-28 09:51 | disposition home or self-care (01) ==
PROVIDERS: PCP Family Medicine; Visit Provider Nurse Practitioner Family
DX: R10.2 Pelvic and perineal pain (principal)
CPT/HCPCS: 76830; 76856

== ENCOUNTER 2024-10-02 07:52 | Outpatient (CLI) | payer OTHER, SELFPAY ==
--- OUTSIDE RECORDS SUMMARY | 2024-10-02 07:55 | XMS_ITS | Clinical Summary ---
Author Organization [facility] Address [address] [place] [address] Phone Care Team Providers Care Professor Of Poultry Science Name Role Phone Campbell Jeffries DPM Unavailable [phone] Gustavo Heck MD Primary Care Provider [phone] Tanvir Hughes MD Unavailable [phone] Allergies Active Allergy Reactions Criticality Noted Date Comments Codeine Other (see Comments) 04/15/2015 rapid heart beat and sweating Insulin Glargine Other (see Comments) 3 bruising Medications insulin glulisine (APIDRA) 100 UNIT/ML Solution 30 Units by Subcutaneous route 3 times daily (before meals). 1000 mL 3 6 Active Insulin Syringe-Needle U-100 (INSULIN SYRINGE .5CC/31GX5/16) 31G X 5/16 0.5 ML MiscIndications :Type [...] SC) by Subcutaneous route. Active Continuous Glucose Bed Machine Operator (Dexcom G6 Bed Machine Operator) Device by Does not apply route. Active BIOTIN FORTE PO Take by mouth. Active Advair HFA 115-21 MCG/ACT Aerosol INHALE 2 PUFFS TWICE DAILY WITH SPACER 5 Active traMADol (ULTRAM) 50 MG Tablet take 1 tablet by mouth every 8 hours as needed for pain 5 Active lamoTRIgine (LaMICtal) 200 MG TabletIndicatio ns:Seizures (HCC) Take 1 Tablet by mouth 2 times daily. 180 Tablet 1 5 Active Active Problems Problem Noted Date [...] Encounters Date Type Department Care Team Description 08/26/2024 8:30 AM CDT Office Visit [facility] Neurology [facility] [address] [place] [address] Joslyn Llanos, CARDING MACHINE FEEDER, NUTRITIONAL HEALTH COACH Seizures (HCC) (Primary Dx); Type 1 diabetes mellitus with polyneuropathy (HCC) Discharge Disposition: Discharged to home or Selfcare 08/25/2024 Travel from Last 3 Months Immunizations Immunization [...] Sign Reading Time Taken Comments Blood Pressure 138/88 08/26/2024 8:27 AM CDT Pulse 99 08/26/2024 8:27 AM CDT Temperature 36.8 C (98.2 F) 08/26/2024 8:27 AM CDT Respiratory Rate 16 08/26/2024 8:27 AM CDT Oxygen Saturation 98% 08/26/2024 8:27 AM CDT Inhaled Oxygen Concentration - - Weight 126.3 kg (278 lb 6.4 oz) 08/26/2024 8:27 AM CDT Height 172.7 cm (5' 8) 08/26/2024 8:27 AM CDT Body Mass Index 42.33 08/26/2024 8:27 AM CDT Plan of Treatment Upcoming Encounters Date Type Department Care Team (Late st Contact Info) Description 02/24/2025 8:30 AM APPLICATION SUPPORT DEVELOPER Office Visit [facility] - Neurology [facility] [address] [place] [address] Joslyn Llanos APRN, NUTRITIONAL HEALTH COACH [address] [place] [address] Health Maintenance Due Date Last Done Comments Diabetes: Eye Exam 1994 Diabetes: Foot Exam 1994 Hepatitis C Virus (HCV) Screening 1994 Hepatitis B Immunization (2 of 3 - 3-dose series) 03/21/1995 02/21/1995 Pap Smear 2015 Pneumococcal Immunization Combined (2 of 2 - PCV) 05/15/2017 05/15/2016, 11/26/2015 Diabetes: Nephropathy Screening 11/25/2023 11/24/2022, 11/15/2022, 12/05/2021, Additional history exists SARS-COV-2 Immunization ( season) 2023 01/30/2023, 01/24/2021, 06/02/2020 Cervical Cancer Screening (CCS) 2024 HPV/Cotest 2024 Influenza Immunization (#1) 2024 11/0 08/2022, 01/13/2021, 12/13/2015, Additional history exists Diabetes: Hemoglobin A1c 01/17/202507/18/2 025, 05/02/2021, 06/23/2018, Additional history exists Respiratory Syncytial Virus (RSV) Immunization (Adult) (1 - 1-dose 75+ series) 2069 DTaP/Tdap/Td Immunization Discontinued 2008, 06/02/1999, 11/24/1995, Additional history exists TdaP Immunization Completed 10/14/2008 Human Papillomavirus (HPV) Immunization Completed 04/27/2009, 12/19/2008, 10/14/2008 Meningococcal Immunization (ACWY) Aged [...] - 107 mmol/L 11/24/2022 7:03 AM CDT [facility] CO2, VENOUS 25 22 - 30 mmol/L 11/24/2022 7:03 AM CDT [facility] ANION GAP 13.7 <18.0 mmol/L 11/24/2022 7:03 AM CDT [facility] GLUCOSE 250(H) 70 - 99 mg/dL 11/24/2022 7:03 AM CDT [facility] BUN 9 5 - 18 mg/dL 11/24/2022 7:03 AM CDT [facility] CREATININE, BLOOD 0.83 0.60 - 1.00 mg/dL 11/24/2022 7:03 [facility] BUN/CREATIN[facility] RATIO 11(L) 12 - 20 ratio 11/24/2022 7:03 AM T [facility] TOTAL PROTEIN 7.4 6.3 - 8.2 g/dL 11/24/2022 7:03 AM [facility] ALBUMIN 4.2 3.5 - 5.0 g/dL 11/24/2022 7:03 AM [facility] A/G RATIO 1.3 1.0 - 2.2 11/24/2022 7:03 AM [facility] CALCIUM 8.7 8.7 - 10.5 mg/dL 11/24/2022 7:03 AM [facility] T BILI 0.5 0.2 - 1.2 mg/dL 11/24/2022 7:03 AM [facility] SGOT (AST) 14 5 - 34 U/L 11/24/2022 7:03 AM [facility] SGPT (ALT) 14 0 - 55 U/L 11/24/2022 7:03 AM [facility] ALKALINE PHOSPHATASE 102 40 - 150 U/L 11/24/2022 7:03 AM [facility] GFR, ESTIMATED >60 >=60 11/24/2022 7:03 AM [facility] Comment: Creatinine Clearance is the preferred criteria for selecting drug dose adjustments in renally impaired patients. The GFR is provided as additional pertinent clinical information. GFR is reported in mL/min/1.73 sq m. Calculation based on the Chronic Kidney Disease Epidemiology Collaboration (CKD- EPI) equation refit without adjustment for race. GFR, EST. >60 >=60 023 7:03 AM T [facility] GFR, EST. NONAFRICAN >60 >=60 11/24/2022 7:03 AM [facility] Blood Venipuncture / Unknown 11/24/2022 6:27 AM CDT 11/24/2022 6:34 AM CDT us Sohan Teresa MD CHEMISTRY ORDERABLES Final Resul t [facility] [address] [place] [address] * (ABNORMAL) Hemoglobin A1C (06/23/2018 3:38 PM CDT) HGB-A1C 10.4(H) 4.0 - 6.0 % 06/23/2018 3:58 PM CDT [facility] Est Average Glucose 251.8 mg/dL 06/23/2018 3:58 PM CDT [facility] Blood specimen (specimen) Venipuncture / Unknown 06/23/2018 3:38 PM CDT 06/23/2018 3:38 PM CDT Narrative [facility] - 06/23/2018 3:58 PM CDT HEMOGLOBIN A1C: DIABETIC PATIENTS: WELL-CONTROLLED: 6.2 - 7.0 INTERMEDIATE WELL-CONTROLLED: 7.0 - 9.0 POORLY-CONTROLLED: >9.0 us Loyd Lazar MD CHEMISTRY ORDERABLES Final Result Performing Organization Address City/[facility] Co de Phone Number [facility] [address] [place] [address] from Last 3 Months or Most Recently Relevant to Health Maintenance Insurance MEDICAID [place] Advance Directives * Full Code (Latest Code [...] measures to stabilize the patient. Care Teams Professor Of Poultry Science Relationship Specialty Start Date End Date Gustavo Heck MD [address] [place] [id number] PCP - General Family Medicine 12/05/21 Campbell Jeffries DPM Consulting Physician Podiatry 06/28/16 Tanvir Hughes MD [address] [place] [address] Consulting Physician Neurology 11/30/23
--- OUTSIDE RECORDS SUMMARY | 2024-10-02 07:55 | XMS_ITS | Clinical Summary ---
Author Organization [facility] Address [address] [place] [address] Phone Care Team Providers Care Riding Coach Name Role Phone Gustavo Heck MD Primary Care Provider [phone] Allergies Active Allergy Reactions Criticality Noted Date [...] Comments Blood Pressure 148/90 05/04/2021 8:15 AM CERTIFIED CONTROL SYSTEMS TECHNICIAN Pulse 99 05/04/2021 8:15 AM CERTIFIED CONTROL SYSTEMS TECHNICIAN Temperature 36.2 C (97.2 F) 05/04/2021 8:15 AM CERTIFIED CONTROL SYSTEMS TECHNICIAN Respiratory Rate 18 05/04/2021 8:15 AM CERTIFIED CONTROL SYSTEMS TECHNICIAN Oxygen Saturation 98% 05/04/2021 8:15 AM CERTIFIED CONTROL SYSTEMS TECHNICIAN Inhaled Oxygen Concentration - - Weight 101.6 kg (224 lb) 05/02/2021 11:01 PM CERTIFIED CONTROL SYSTEMS TECHNICIAN Height 172.7 cm (5' 8) 05/02/2021 11:01 PM CERTIFIED CONTROL SYSTEMS TECHNICIAN Body Mass Index 34.06 05/02/2021 11:01 PM CERTIFIED CONTROL SYSTEMS TECHNICIAN Plan of Treatment Health Maintenance Due Date Last Done Comments DIABETES ANNUAL FOOT EXAM 2012 DIABETES ANNUAL RETINAL EXAM 2012 DIABETES MICROALBUMIN ANNUAL SCREEN 2012 DTAP/TDAP/TD VACCINES (1 - Tdap) 2013 HEPATITIS B VACCINES (1 of 3 - 19+ 3-dose series) 2013 HPV/Cotest (21-29) 2015 DIABETES HBA1C Q 6 MONTHS 10/30/20212021, 02/23/2018, 11/23/2017, Additional history exists LDL CHOLESTEROL ANNUAL 05/02/2022 , 11/23/2017, 10/13/2016 CERVICAL CANCER SCREENING 2024 HPV/Cotest (30-65) 2024 PAP SMEAR 2024 08/30/2017 INFLUENZA VACCINE (#1) 2024 12/13/2015 HPV VACCINES Aged Out No longer eligi ble based on patient's age to complete this topic Procedures Procedure Name Priority Date/Time Associated Diagnosis Comments LIPID PANEL Routine 05/02/2021 5:21 PM CERTIFIED CONTROL SYSTEMS TECHNICIAN HEMOGLOBIN A1C Routine 05/02/2021 5:21 PM CERTIFIED CONTROL SYSTEMS TECHNICIAN from Last 3 Months or Most Recently Relevant to Health Maintenance Results * (ABNORMAL) HEMOGLOBIN A1C (05/02/2021 5:21 PM CERTIFIED CONTROL SYSTEMS TECHNICIAN) HEMOGLOBIN A1C 7.8(H) <5.7 % 05/03/2021 9:42 AM CERTIFIED CONTROL SYSTEMS TECHNICIAN [facility] EST. AVG GLUCOSE, A1C 177 mg/dL 05/03/2021 9:42 AM CERTIFIED CONTROL SYSTEMS TECHNICIAN [facility] Blood Venipuncture / Unknown 05/02/2021 5:21 PM CERTIFIED CONTROL SYSTEMS TECHNICIAN 05/02/2021 5:23 PM CERTIFIED CONTROL SYSTEMS TECHNICIAN Narrative [facility] - 05/03/2021 9:42 AM CERTIFIED CONTROL SYSTEMS TECHNICIAN HGB A1C INTERPRETATION NORMAL: <5.7% PRE-DIABETES: 5.7 - 6.4% DIABETES: 6.5% OR GREATER us Keysha Pelletier MD CHEMISTRY ORDERABLES Final Resul t [facility]# [id number] [address] [place] [address] * (ABNORMAL) LIPID PANEL (05/02/2021 5:21 PM CERTIFIED CONTROL SYSTEMS TECHNICIAN) CHOLESTEROL 227(H) <200 mg/dL 05/03/2021 12:47 PM [facility] TRIGLYCERIDE 73 <150 mg/dL 05/03/2021 12:47 PM [facility] HDL 46 40 - 59 mg/dL 05/03/2021 12:47 PM [facility] LDL CALCULATED 166(H) <100 mg/dL 05/03/2021 12:47 PM [facility] NON-HDL CHOLESTEROL 181(H) <130 mg/dL 05/03/2021 12:47 PM [facility] Blood Venipuncture / Unknown 05/02/2021 5:21 PM CERTIFIED CONTROL SYSTEMS TECHNICIAN 05/02/2021 5:24 PM [facility] - 05/03/2021 12:47 PM CERTIFIED CONTROL SYSTEMS TECHNICIAN TOTAL CHOLESTEROL mg/dL Desirable <200 Borderline high [...] Gutierrez MD CHEMISTRY ORDERABLES Fi nal Result [facility] [place]# [id number] [address] [place] [address] from Last 3 Months or Most Recently Relevant to Health Maintenance Advance Directives For more information, please contact: [phone] * Full Code (Latest Code Status on [...] 7:38 PM 04/03/2017 3:02 PM Care Teams Riding Coach Relationship Specialty Start Date End Date Gustavo Heck MD PCP - General Family Practice 05/02/21
== END 2024-10-02 07:53 | disposition home or self-care (01) ==
LOC: ANHBWCAUD 07:53
PROVIDERS: PCP Family Medicine; Visit Provider Otolaryngology Otolaryngology/Facial Plastic Surgery
DX: H90.3 Sensorineural hearing loss, bilateral (principal)
CPT/HCPCS: 92557; 92567

== ENCOUNTER 2024-12-23 15:36 | Outpatient (CLI) | payer OTHER, SELFPAY ==
--- NOTE | ~2024-12-23 | MR_ITS ---
EXAMINATION: MR IAC wo/w con DATE: 12/23/2024 16:40 INDICATION: Sensorineural hearing loss, bilateral. TECHNIQUE: Magnetic resonance imaging (MRI) of the brain, brainstem, and internal auditory canals was performed without and with 20 mL MultiHance intravenous contrast. COMPARISON: Brain MRI 12/05/2023 FINDINGS: There is no intracranial hemorrhage, acute infarction, or abnormal intracranial mass lesion. The ventricles are normal in size. The orbits are normal. There is mild mucosal thickening in the ethmoid sinuses. The internal auditory canals, inner ears, tympanic cavities, and mastoid air cells are normal. IMPRESSION: 1. Normal brain. Reviewed, dictated and finalized at location E. IMPRESSION: 1. Normal brain.
--- OUTSIDE RECORDS SUMMARY | 2024-12-23 16:30 | XMS_ITS | Clinical Summary ---
Author Organization [facility] Address [address] [place] [address] Care Team Providers Care Camp Guard Name Role Phone Gustavo Heck MD Primary Care Provider [phone] Matt Caldwell DO Unavailable [phone] Kole Lizama MD Unavailable Allergies Active Allergy [...] (six) hours as needed for pain Active diphenhydrAMIN E (BENADRYL) 25 mg capsule Take 1 tablet/capsule (25 mg total) by mouth every 6 (six) hours as needed for itching Active lisinopriL (PRINIVIL,ZEST RIL) 5 mg tablet Take 0.5 tablets (2.5 mg total) by mouth daily Active prochlorperazi ne (COMPAZINE) 10 mg tablet Take 1 tablet (10 mg total) by mouth 2 (two) times a day as needed for nausea or vomiting 10 tablet 3 Active albuterol HFA (PROVENTIL HFA,VENTOLIN HFA,PROAIR HFA) 90 mcg/actuation inhalerIndicat ions:Bronchosp asm Prevention Inhale 1 puff every 4 (four) hours as needed for wheezing Active atorvastatin (LIPITOR) 80 mg tablet Take 1 tablet (80 mg total) by mouth daily Active calcium carbonate-shahida min D3 1,500 mg (600 mg elemental)-200 unit capsule Take 2 tablets by mouth daily Active ezetimibe (ZETIA) 10 mg tablet Take 1 tablet (10 mg total) by mouth daily Active gabapentin (NEURONTIN) 300 mg capsuleIndicat ions:Neuropath ic Pain Take 1 capsule (300 mg total) by mouth 3 (three) times a day Active lamoTRIgine (LaMICtal) 100 mg tablet Take [...] Active pantoprazole DR (PROTONIX) 40 mg EC tabletIndicati ons:Treatment of Non-Bleeding Gastric Disorder Take 1 tablet [...] above 250 100 strip 11 5 Active insulin pump cart,auto,BT,G 6/7 (Omnipod 5 G6-G7 Pods, Gen 5,) cartridge Change pod every 48 hours 2 each 5 Active Dexcom G7 Sensor device 1 Device continuously Change every 10 days. E10.65 10 each 5 Active insulin glargine 100 unit/mL (3 mL) pen for injection Inject 45 Units under the skin daily as needed (use only in case of insulin pump failure) 15 mL 11 5 Active insulin lispro (HumaLOG, ADMELOG) 100 unit/mL vial for injection Use via insulin pump. Maximum total daily dose 90 units 75 mL 3 5 Active traMADoL (ULTRAM) 50 mg tabletIndicati ons:Dentalgia, Dental infection Take 1 tablet (50 mg total) by mouth every 6 (six) hours P.r.n. pain not relieved by naproxen alone. Take 500 mg of acetaminophen with each dose. Take with food. Collaborating physician Matt Dang MD 15 tablet 5 Active naproxen (NAPROSYN) 500 mg tabletIndicati ons:Dentalgia, Dental infection Take 1 tablet (500 mg total) by mouth 2 (two) times a day with meals PRN pain. Collaborating physician Matt Dang MD 20 tablet 5 Active chlorhexidine (PERIDEX) 0.12 % oral rinseIndicatio ns:Dentalgia,D ental infection Apply 15 mL to the mouth or throat 2 (two) times a day Swish around in mouth for 5 minutes then spit out. Collaborating physician Matt Dang MD 240 mL 5 Active blood-glucose meter kit Use daily or as directed for monitoring of diabetes 1 kit Active Active Problems Problem Noted Date Diagnosed Date Dentalgia 10/22/2024 Dental infection 10/22/2024 Type 1 diabetes mellitus with hyperglycemia 10/2022 Breakthrough seizure 01/31/2023 Epilepsy undetermined as to focal or generalized 09/13/2022 Diabetic ketoacidosis withou t coma associated with type 1 diabetes mellitus 07/30/2020 Volume depletion 07/30/2020 Depression 07/30/2020 Encounters Date Type Department Care Team Description 10/22/2024 6:06 PM CDT - 10/22/2024 7:25 PM CDT Emergency [facility] Emergency Department [address] [place] [address] Dentalgia (Primary Dx); Dental infection Discharge Disposition: Discharge to home or self care 10/21/2024 10:00 AM CDT Office Visit [facility] at [address] [place] [id number] Cathy Sterling, DO Type 1 diabetes mellitus with other specified complication (HCC) (Primary Dx); Hypertension associated with type 1 diabetes mellitus (HCC) from Last 3 Months Immunizations Immunization Administration Dates Next Due Influenza, Unspecified 01/30/2023 Surgical History Surgery Date Site/Laterality Comments LITHOTRIPSY Medical History Medical History Date Comments Diabetes mellitus High cholesterol Supraventricular tachycardia Diabetes mellitus type I Hyperlipidemia Hypertension Anxiety Depression Seizures (HCC) Asthma Family History Medical History Relation Name Comments Diabetes Father Heart disease Father Depression Mother Diabetes Mother Heart disease Mother Hyperlipidemia Mother Multiple sclerosis Mother Relation Name Status Comments Father Mother Social History Tobacco Use Types Packs/Day Years Used Date Smoking Tobacco: Never Tobacco Cessation:Counseling Given: Not Answered [facility] Utilities Answer Date Recorded In the past 12 months has th e electric, gas, oil, or water company threatened to shut off services in your home? No 02/01/2023 Social Connection and Isolation Panel Answer Date Recorded In a typical week, how many times do you talk on the phone with family, friends, or neighbors? Three times a week 02/01/2023 How often do you get togethe r with friends or relatives? Three times a week 02/01/2023 How often do you attend chur ch or yazdanism services? Never 02/01/2023 Do you belong to any clubs o r organizations such as baptism groups, unions, fraternal or athletic groups, or [...] place to sleep or slept in a halfway (including now)? No 02/01/2023 Personal Safety Answer Date Recorded Have you ever been in or are you currently in a harmful physical or emotional relationship or is someone making you feel afraid or unsafe? Denies 10/22/2024 Education Answer Date Recorded What is the highest level of school you have completed or the highest degree you have received? Some college, no degree 02/01/2023 Comments No Sex and Gender Information Value Date Recorded Sex Assigned at Not on file Legal Sex Female 8:34 AM SYSTEM ENGINEER Gender Identity Female 09/30/2022 7:52 PM CDT Sexual Orientation Straight 09/30/2022 7: 52 PM CDT Obstetrics History Last Filed Vital Signs Vital Sign Reading Time Taken Comments Blood Pressure 161/100 10/22/2024 6:42 PM CDT Pulse 81 10/22/2024 6:42 PM CDT Temperature 36.5 C (97.7 F) 10/22/2024 6:03 PM CDT Respiratory Rate 18 10/22/2024 6:42 PM CDT Oxygen Saturation 95% 10/22/2024 6:42 PM CDT Inhaled Oxygen Concentration - - Weight 122.5 kg (270 lb) 10/22/2024 6:03 PM CDT Height 172.7 cm (5' 8) 10/22/2024 6:03 PM CDT Body Mass Index 41.05 10/22/2024 6:03 PM CDT Plan of Treatment Health Maintenance Due Date Last Done Comments Cervical Cancer Screening 1994 Depression Screening 1994 Hepatitis C Screening 1994 Varicella Vaccines (2 of 2 - 13+ 2-dose series) 11/11/2008 10/14/2008 Regular Well Visit/Exam 18-64 2012 Pneumococcal vaccine <65 (2 of 2 - PCV) 05/15/2017 05/15/2016, 11/26/2015 DTaP/Tdap/Td Vaccine (7 - Td or Tdap) 10/14/2018 10/14/2008, 06/02/1999, 11/24/1995, Additional history exists Influenza Vaccine (#1) 2024 , 12/13/2015, 11/26/2015, Additional history exists Foot Exam 04/18/2025 04/18/2024 Hemoglobin A1C 04/23/2025 10/21/2024, 06/26, 04/18/2024, Additional history exists Albumin Creatinine Ratio, Urine 07/18/2025 Lipid Panel 07/18/2025 07/18/2024, 05/02/2021 TSH Level 07/18/2025 07/18/2024 eGFR 07/18/2025 07/18/2024, 12/25, 02/01/2023, Additional history exists Dilated Eye Exam 12/13/2025 12/14/2023 Hepatitis B Screening Completed 02/21/1995 HPV Vaccines Completed 04/27/2009, 11/26, 10/14/2008 Procedures Procedure Name Priority Date/Time Associated Diagnosis Comments POCT HEMOGLOBIN A1C Routine 10/21/2024 9 :52 AM CDT Type 1 diabetes mellitus with other specified complication (HCC) EGFR Routine 07/18/2024 10:30 AM CDT Type 1 diabetes mellitus with other specified complication (HCC) LIPID PANEL Routine 07/18/2024 10:30 AM CDT Type 1 diabetes mellitus with other specified complication (HCC) ALBUMIN CREATININE RATIO, URINE Routine 07/18/2024 10:30 AM CDT Type 1 diabetes mellitus with other specified complication (HCC) THYROID FUNCTION CASCADE Routine 07/18/2024 10:30 AM CDT Type 1 diabetes mellitus with other specified complication (HCC) DIABETIC EYE EXAM Routine 12/14/2023 from Last 3 Months or Most Recently Relevant to Health Maintenance Results * (ABNORMAL) POCT hemoglobin A1c (10/21/2024 9:52 AM CDT) Hemoglobin A1C, POC 6.5(A) 4.0 - 5.6 % Blood 10/21/2024 9:52 AM CDT Cathy Sterling DO POINT OF CARE TEST ORDERABL ES Final Result * eGFR (07/18/2024 10:30 AM CDT) eGFR >90 >=60 mL/min/1. 73 m2 Comment: Interpretive Data Reference Interval Normal >/= [...] of Race in Diagnosing Kidney Disease, JASN 202). The CKD-EPI equation should not be used for patients with unstable renal function and has not been validated in children and those over 70. Current interpretive data was last reviewed 2021. Testing performed by: [facility], [address] [place] [address], [place]., [address] Blood 07/18/2024 10:3 0 AM CDT 07/18/2024 7:03 PM CDT Cathy Sterling DO LAB BLOOD ORDERABLES Final Result Performing Organization Address [facility] Co de Phone Number [facility] [address] [facility] [place] [address] * Thyroid Function [place] (07/18/2024 10:30 AM CDT) Pathologist [facility] TSH 0.77 0.30 - 4.20 mcIUnit/mL Comment:Testing performed by : [address], [address] Blood 07/18/2024 10:3 0 AM CDT 07/18/2024 6:23 PM CDT Cathy Sterling DO LAB BLOOD ORDERABLES Final Result Performing Organization Address [facility] de Phone Number [facility] [address] [facility] [place] [address] * Albumin Creatinine Ratio, Urine (07/18/2024 10:30 AM CDT) Pathologist [facility] Albumin Ur 14.9 mg/L Comment: Interpretive Data No reference range established. Current interpretive data was last revised 2018. Testing performed by: [address] [address] Creatinine Ur 208.1 mg/dL [facility] Comment: Interpretive Data No reference range established. Current interpretive data was last revised 2018. Testing performed by: [address] [address] Albumin Creatinine Ratio, Ur 7 1 - 29 mg/g [facility] Comment:Testing performed by : [address] [address] Urine 07/18/2024 10:3 0 AM CDT 07/18/2024 6:23 PM CDT Cathy Sterling DO LAB URINE ORDERABLES Final Result [facility] [id number] [facility] Department [place] [address] * (ABNORMAL) Lipid panel (07/18/2024 10:30 AM CDT) Cholesterol 243(H) 30 - 199 mg/dL Comment: Interpretive Data Ages < or = 19 years Acceptable: <170 mg/dL Borderline high: 170-199 mg/dL High: >or= 200 mg/dL Ages > or = 20 years Desirable: <200 mg/dL Borderline high: 200-239 mg/dL High: >or= 240 mg/dL Literature References: 1. Expert Panel on Integrated Guidelines for Cardiovascular Health and Risk Reduction in Children and Adolescents. Pediatrics 2011;128:S213 2. NCEP Expert Panel. Circulation 2004;110:227 Current Interpretive Data was last revised on 2017. Testing performed by: [facility], [address] [place] [address]., [address] Triglycerides 72 <=149 mg/dL [facility] Comment: Interpretive Data Ages < or = 9 years Acceptable: <75 mg/dL Borderline high: 75-99 mg/dL High: >or= 100 mg/dL Ages 10 to 20 years Acceptable: <90 mg/dL Borderline high: 90-129 mg/dL High: >or= 130 mg/dL Ages > or = 20 years Desirable: <150 mg/dL Borderline high: 150-199 mg/dL High: 200-499 mg/dL Very high: >or= 499 mg/dL Literature References: 1. Expert Panel on Integrated Guidelines for Cardiovascular Health and Risk Reduction in Children and Adolescents. Pediatrics 2011;128:S213 2. NCEP Expert Panel. Circulation 2004;110:227 Current Interpretive Data was last revised on 2017. Testing performed by: [facility], [address] [place] [address]., [address] HDL 38(L) >=40 mg/dL [facility] Comment: Interpretive Data Ages < or = 19 years Acceptable: >45 mg/dL Borderline low: 40-45 mg/dL Low: <40 mg/dL Ages > or = 20 years Desirable: >or= 60 mg/dL Low: <40 mg/dL Literature References: 1. Expert Panel on Integrated Guidelines for Cardiovascular Health and Risk Reduction in Children and Adolescents. Pediatrics 2011;128:S213 2. NCEP Expert Panel. Circulation 2004;110:227 Current Interpretive Data was last revised on 2017. Testing performed by: [facility], [address] [place] [address]., [address] LDL, calculated 193(H) <=129 mg/dL [facility] Comment: Interpretive Data Ages < or = 19 years Acceptable: <110 mg/dL Borderline high: 110-129 mg/dL High: >or= 130 mg/dL Ages > or = 20 years Optimal: <100 mg/dL Near optimal: 100-129 mg/dL Borderline high: 130-159 mg/dL High: >160 mg/dL Calculated using the Bartolo LDL-C estimating equation. This equation was implemented on 2023. Prior to this date LDL-C was estimated using the Friedewald equation. Literature References: 1. Expert Panel on Integrated Guidelines for Cardiovascular Health and Risk Reduction in Children and Adolescents. Pediatrics 2011;128:S213 2. NCEP Expert Panel. Circulation 2004;110:227 3. Bartolo Kirby et al. IRWIN Cardiol. 2020 July 25;5(5):540-548. doi: 10.1001/jamacardio.2020.0013 Current Interpretive Data was last revised on 2023. Testing performed by: [address] [address] Non-HDL Cholesterol 205 mg/dL [facility] Comment: Interpretive Data Ages < or = 19 years Acceptable: <120 mg/dL Borderline high: 120-144 mg/dL High: >145 mg/dL Ages > or = 20 years When triglycerides are >200 mg/dL, Non-HDL cholesterol is a secondary target of therapy with treatment goals that are 30 mg/dL greater than the LDL cholesterol target. Literature References: 1. Expert Panel on Integrated Guidelines for Cardiovascular Health and Risk Reduction in Children and Adolescents. Pediatrics 2011;128:S213 2. NCEP Expert Panel. Circulation 2004;110:227 Current Interpretive Data was last revised on 2017. Testing performed by: [address] [address] Chol/HDL ratio 6 [facility] Comment:Testing performed by : [facility] [address] [place]., [address] Blood 07/18/2024 10:3 0 AM CDT 07/18/2024 6:23 PM CDT Cathy Sterling DO LAB BLOOD ORDERABLES Final Result [facility] [id number] [facility] Department [place] [address] * Diabetic Eye Exam (12/14/2023) 12/14/2023 Historical Provider HEALTH MAINTENANCE Final Result from Last 3 Months or Most Recently Relevant to Health Maintenance Insurance [id number] [place] [address] [facility] Advance Directives For more information, please contact: [phone] * Full Code (Latest Code Status on File) Date Activated Date Inactivated Comments 01/31/2023 6:56 PM 02/02/2023 4:24 PM Care Teams Camp Guard Relationship Specialty Start Date End Date Gustavo Heck MD PCP - General Family Practice 09/08/22 Matt Caldwell DO 09/08/22 Kole Lizama MD [address] [place] [address] DR TILLMAN [address] [place] [id number] Consulting Physician Gastroenterology 02/02/23
--- OUTSIDE RECORDS SUMMARY | 2024-12-23 16:30 | XMS_ITS | Clinical Summary ---
Author Organization [facility] Address [address] [place] [address] Phone Care Team Providers Care Nonprofit Financial Controller Name Role Phone Gustavo Heck MD Primary Care Provider [phone] Allergies Active Allergy Reactions Criticality Noted Date [...] Comments Blood Pressure 148/90 05/04/2021 8:15 AM DIRECTOR OF UNDERGRADUATE ADMISSIONS Pulse 99 05/04/2021 8:15 AM DIRECTOR OF UNDERGRADUATE ADMISSIONS Temperature 36.2 C (97.2 F) 05/04/2021 8:15 AM DIRECTOR OF UNDERGRADUATE ADMISSIONS Respiratory Rate 18 05/04/2021 8:15 AM DIRECTOR OF UNDERGRADUATE ADMISSIONS Oxygen Saturation 98% 05/04/2021 8:15 AM DIRECTOR OF UNDERGRADUATE ADMISSIONS Inhaled Oxygen Concentration - - Weight 101.6 kg (224 lb) 05/02/2021 11:01 PM DIRECTOR OF UNDERGRADUATE ADMISSIONS Height 172.7 cm (5' 8) 05/02/2021 11:01 PM DIRECTOR OF UNDERGRADUATE ADMISSIONS Body Mass Index 34.06 05/02/2021 11:01 PM DIRECTOR OF UNDERGRADUATE ADMISSIONS Plan of Treatment Health Maintenance Due Date Last Done Comments DIABETES ANNUAL FOOT EXAM 2012 DIABETES ANNUAL RETINAL EXAM 2012 DIABETES MICROALBUMIN ANNUAL SCREEN 2012 DTAP/TDAP/TD VACCINES (1 - Tdap) 2013 HEPATITIS B VACCINES (1 of 3 - 19+ 3-dose series) 2013 HPV/Cotest (21-29) 2015 HPV VACCINES (1 - 3-dose SCD M series) 2021 DIABETES HBA1C Q 6 MONTHS 10/30/20212021, 02/23/2018, 11/23/2017, Additional history exists LDL CHOLESTEROL ANNUAL 05/02/2022 , 11/23/2017, 10/13/2016 CERVICAL CANCER SCREENING 2024 HPV/Cotest (30-65) 2024 PAP SMEAR 2024 08/30/2017 INFLUENZA VACCINE (#1) 2024 12/13/2015 Procedures Procedure Name Priority Date/Time Associated Diagnosis Comments LIPID PANEL Routine 05/02/2021 5:21 PM DIRECTOR OF UNDERGRADUATE ADMISSIONS HEMOGLOBIN A1C Routine 05/02/2021 5:21 PM DIRECTOR OF UNDERGRADUATE ADMISSIONS from Last 3 Months or Most Recently Relevant to Health Maintenance Results * (ABNORMAL) HEMOGLOBIN A1C (05/02/2021 5:21 PM DIRECTOR OF UNDERGRADUATE ADMISSIONS) HEMOGLOBIN A1C 7.8(H) <5.7 % 05/03/2021 9:42 AM DIRECTOR OF UNDERGRADUATE ADMISSIONS [facility] EST. AVG GLUCOSE, A1C 177 mg/dL 05/03/2021 9:42 AM DIRECTOR OF UNDERGRADUATE ADMISSIONS [facility] [address] [employer] [address] [facility] Blood Venipuncture / Unknown 05/02/2021 5:21 PM DIRECTOR OF UNDERGRADUATE ADMISSIONS 05/02/2021 5:23 PM DIRECTOR OF UNDERGRADUATE ADMISSIONS Narrative [facility] - 05/03/2021 9:42 AM DIRECTOR OF UNDERGRADUATE ADMISSIONS HGB A1C INTERPRETATION NORMAL: <5.7% PRE-DIABETES: 5.7 - 6.4% DIABETES: 6.5% OR GREATER us Keysha Pelletier MD CHEMISTRY ORDERABLES Final Resul t [facility] [address] [employer] [address] [facility]# [id number] [address] [place] [place] [address] * (ABNORMAL) LIPID PANEL (05/02/2021 5:21 PM DIRECTOR OF UNDERGRADUATE ADMISSIONS) CHOLESTEROL 227(H) <200 mg/dL 05/03/2021 12:47 PM [facility] [address] [employer] [address] [facility] TRIGLYCERIDE 73 <150 mg/dL 05/03/2021 12:47 PM [facility] [address] [facility] HDL 46 40 - 59 mg/dL 05/03/2021 12:47 PM [facility] [address] [facility] LDL CALCULATED 166(H) <100 mg/dL 05/03/2021 12:47 PM [facility] [address] [employer] [address] [facility] NON-HDL CHOLESTEROL 181(H) <130 mg/dL 05/03/2021 12:47 PM [facility] [address] [facility] Blood Venipuncture / Unknown 05/02/2021 5:21 PM DIRECTOR OF UNDERGRADUATE ADMISSIONS 05/02/2021 5:24 PM [facility] LABORATORY [facility] - 05/03/2021 12:47 PM DIRECTOR OF UNDERGRADUATE ADMISSIONS TOTAL CHOLESTEROL mg/dL Desirable <200 Borderline high [...] Raghav Gutierrez MD CHEMISTRY ORDERABLES nal Result [facility] Going [facility] [id number] [address] [facility] [address] [place] [id number] from Last 3 Months or Most Recently Relevant to Health Maintenance Advance Directives For more information, please contact: [phone] * Full Code (Latest Code Status on [...] 7:38 PM 04/03/2017 3:02 PM Care Teams Nonprofit Financial Controller Relationship Specialty Start Date End Date Gustavo Heck MD PCP - General Family Practice 05/02/21
--- OUTSIDE RECORDS SUMMARY | 2024-12-23 16:30 | XMS_ITS | Clinical Summary ---
Author Organization [facility] Address [address] [place] [address] Phone Care Team Providers Care Passenger Tire Builder Name Role Phone Campbell Jeffries DPM Unavailable [phone] Gustavo Heck MD Primary Care Provider [phone] Tanvir Hughes MD Unavailable [phone] Allergies Active Allergy Reactions Criticality Noted Date [...] MiscIndications :Type 1 diabetes mellitus with nephropathy Once a day 100 Each 3 7 [...] SC) by Subcutaneous route. Active Continuous Glucose Draw End Hand (Dexcom G6 Draw End Hand) Device by Does not apply route. Active BIOTIN FORTE PO Take by mouth. Active Advair HFA 115-21 MCG/ACT Aerosol INHALE 2 PUFFS TWICE DAILY WITH SPACER 5 Active traMADol (ULTRAM) 50 MG Tablet take 1 tablet by mouth every 8 hours as needed for pain 5 Active lamoTRIgine (LaMICtal) 200 MG TabletIndicatio ns:Seizures Take 1 Tablet by mouth 2 times [...] st Contact Info) Description 02/24/2025 8:30 AM FENCE INSTALLER Office Visit [facility] - Neurology - [place] [address] [place] [address] Joslyn Llanos, SWING MANAGER, MUSICAL STRING MAKER [address] [place] [address] Health Maintenance Due Date Last Done Comments Diabetes: Eye Exam 1994 Diabetes: Foot Exam 1994 Hepatitis C Virus (HCV) Screening 1994 Hepatitis B Immunization (2 of 3 - 3-dose series) 03/21/1995 02/21/1995 Pap Smear 2015 Pneumococcal Immunization Combined (2 of 2 - PCV) 05/15/2017 05/15/2016, 11/26/2015 Diabetes: Nephropathy Screening 11/25/2023 11/24/2022, 11/15/2022, 12/05/2021, Additional history exists Cervical Cancer Screening (CCS) 2024 HPV/Cotest 2024 Influenza Immunization (#1) 2024 110 08/2022, 01/13/2021, 12/13/2015, Additional history exists SARS-COV-2 Immunization ( season) 2024 01/30/2023, 01/24/2021, 06/02/2020 Diabetes: Hemoglobin A1c 01/17/202507/18/2 025, 05/02/2021, 06/23/2018, [...] - 145 mmol/L 11/24/2022 7:03 AM CDT [facility] POTASSIUM 4.7 3.5 - 5.1 mmol/L 11/24/2022 7:03 AM CDT [facility] CHLORIDE 101 98 - 107 mmol/L 11/24/2022 7:03 AM CDT [facility] CO2, VENOUS 25 22 - 30 mmol/L 11/24/2022 7:03 AM CDT [facility] ANION GAP 13.7 <18.0 mmol/L 11/24/2022 7:03 AM CDT [facility] GLUCOSE 250(H) 70 - 99 mg/dL 11/24/2022 7:03 AM CDT [facility] BUN 9 5 - 18 mg/dL 11/24/2022 7:03 AM CDT [facility] CREATININE, BLOOD 0.83 0.60 - 1.00 mg/dL 11/24/2022 7:03 AM CDT [facility] BUN/CREATININE RATIO 11(L) 12 - 20 ratio 11/24/2022 7:03 AM CDT [facility] TOTAL PROTEIN 7.4 6.3 - 8.2 g/dL 11/24/2022 7:03 AM CDT [facility] ALBUMIN 4.2 3.5 - 5.0 g/dL 11/24/2022 7:03 AM CDT [facility] A/G RATIO 1.3 1.0 - 2.2 11/24/2022 7:03 AM CDT [facility] CALCIUM 8.7 8.7 - 10.5 mg/dL 11/24/2022 7:03 AM CDT [facility] T BILI 0.5 0.2 - 1.2 mg/dL 11/24/2022 7:03 AM CDT [facility] SGOT (AST) 14 5 - 34 U/L 11/24/2022 7:03 AM CDT [facility] SGPT (ALT) 14 0 - 55 U/L 11/24/2022 7:03 AM CDT [facility] ALKALINE PHOSPHATASE 102 40 - 150 U/L 11/24/2022 7:03 AM CDT [facility] GFR, ESTIMATED >60 >=60 11/24/2022 7:03 AM CDT [facility] Comment: Creatinine Clearance is the preferred criteria for selecting drug dose adjustments in renally impaired patients. The GFR is provided as additional pertinent clinical information. GFR is reported in mL/min/1.73 sq m. Calculation based on the Chronic Kidney Disease Epidemiology Collaboration (CKD- EPI) equation refit without adjustment for race. GFR, EST. >60 >=60 023 7:03 AM CDT [facility] GFR, EST. NONAFRICAN >60 >=60 11/24/2022 7:03 AM CDT [facility] Blood Venipuncture / Unknown 11/24/2022 6:27 AM CDT 11/24/2022 6:34 AM CDT us Sohan Teresa MD CHEMISTRY ORDERABLES Final Resul t [facility] [address] [place] [address] * (ABNORMAL) Hemoglobin A1C (06/23/2018 3:38 PM CDT) HGB-A1C 10.4(H) 4.0 - 6.0 % 06/23/2018 3:58 PM CDT [facility] Est Average Glucose 251.8 mg/dL 06/23/2018 3:58 PM CDT [facility] Blood specimen (specimen) Venipuncture / Unknown 06/23/2018 3:38 PM CDT 06/23/2018 3:38 PM CDT Narrative [facility] - 06/23/2018 3:58 PM CDT HEMOGLOBIN A1C: DIABETIC PATIENTS: WELL-CONTROLLED: 6.2 - 7.0 INTERMEDIATE WELL-CONTROLLED: 7.0 - 9.0 POORLY-CONTROLLED: >9.0 us Loyd Lazar MD CHEMISTRY ORDERABLES Final Result [facility] [address] [place] [address] from Last 3 Months or Most Recently Relevant to Health Maintenance Insurance MEDICAID [place] Advance Directives * Full Code (Latest Code [...] measures to stabilize the patient. Care Teams Passenger Tire Builder Relationship Specialty Start Date End Date Gustavo Heck MD PCP - General Family Medicine 12/05/21 Campbell Jeffries DPM Consulting Physician Podiatry 06/28/16 Tanvir Hughes MD [address] [place] [address] Consulting Physician Neurology 11/30/23
== END 2024-12-23 15:37 | disposition home or self-care (01) ==
PROVIDERS: PCP Family Medicine; Visit Provider Otolaryngology Otolaryngology/Facial Plastic Surgery
DX: H90.3 Sensorineural hearing loss, bilateral (principal)
CPT/HCPCS: 70553; A9577

== ENCOUNTER 2025-01-01 09:35 | Outpatient (CLI) | payer OTHER, SELFPAY ==
[2025-01-01 19:19] LABS: Magnesium 1.9 mg/dL (1.6-2.3)
[2025-01-01 19:22] LABS: Alanine Aminotransferase 18 U/L (6-35); Albumin Level 4.3 g/dL (3.5-5.1); Alkaline Phosphatase 94 U/L (38-126); Anion Gap 9 mmol/L (4-12); Aspartate Amino Transferase 53 U/L (14-36); Bilirubin,Total 0.6 mg/dL (0.2-1.3); Blood Urea Nitrogen 11 mg/dL (7-17); Calcium 9.9 mg/dL (8.4-10.2); Carbon Dioxide 27 mmol/L (22-30); Chloride 99 mmol/L (98-107); Cholesterol 252 mg/dL (0-200); Estimated Glomerular Filt Rate > 60; Glucose 85 mg/dL (65-110); HDL Direct 39 mg/dL; Hematocrit 40.3 % (37.0-47.0); Hemoglobin 12.7 g/dL (12.0-15.0); Immature Granulocyte Percent A 0.3 % (0-0.5); Lymphocytes Absolute Auto 1.91 K/mm3 (0.9-3.2); Mean Corpuscular HGB Conc 31.5 g/dl (32-36); Mean Corpuscular Hemoglobin 28.0 pg (26-34); Mean Corpuscular Volume 89.0 fl (80-100); Nucleated Red Blood Cells Absolute Auto 0.000 K/mm3 (0.0-0.012); Nucleated Red Blood Cells Perc 0.0 % (0.0-0.2); Platelet Count Result 448 k/mm3 (150-375); Potassium 4.1 mmol/L (3.4-5.0); Red Blood Count 4.53 M/mm3 (4.2-5.4); Sodium 135 mmol/L (137-145); Total Protein 8.6 g/dL (6.3-8.2); Triglycerides 98 mg/dL (<150); White Blood Count 8.6 K/mm3 (4.5-10.0)
[2025-01-01 20:10] LABS: Vitamin B12 402.0 pg/mL (239-931)
== END 2025-01-01 09:36 | disposition home or self-care (01) ==
LOC: ANHBWCLAB 09:36
PROVIDERS: PCP Family Medicine; Visit Provider Internal Medicine Cardiovascular Disease
DX: Z00.00 Encounter for general adult medical examination without abnormal findings (principal); E78.5 Hyperlipidemia, unspecified; I10 Essential (primary) hypertension; E66.9 Obesity, unspecified; K21.9 Gastro-esophageal reflux disease without esophagitis; K31.84 Gastroparesis; R56.9 Unspecified convulsions; E11.42 Type 2 diabetes mellitus with diabetic polyneuropathy
CPT/HCPCS: 36415; 80053; 80061; 82172; 82306; 82607; 83735; 85025

== ENCOUNTER 2025-02-07 03:11 | Day surgery (SDC) | payer OTHER, SELFPAY ==
[2025-01-23 15:11] VITALS: BMI 42.5
--- NOTE | 2025-01-23 16:01 | PC.NURSE ---
[facility] has started construction of its new state of the art ER which will open Spring 2026. With this, we anticipate parking may be a challenge for some our surgical patients and families. Parking spaces are limited but are available for all Surgical, obstetrics, and ER patients sharing this lot. If you arrive and find you are having a hard time finding a parking space, please note that we understand the challenges, please drive around the hospital and park near Hospital Entrance 1. When you enter this entrance, you can ask a volunteer to direct or take you back to the surgical waiting area to check in. We appreciate everyone?s understanding of these expected challenges while we build for your future. Report to the Outpatient Waiting Room, entrance under the green pavilion located off [address], at time __0600am on date Monday02/07/25 . Planned Procedure Time: __0730am .? Time changes happen often and if your time is changed the preop area will call you the afternoon before. - You and your visitor will be asked to self-screen and do not enter if you have any COVID symptoms. Please call surgeon if you need to reschedule. - A mask is optional within the hospital at this time. Patients may have clear liquids (water, carbonated beverages, clear teas, apple juice) until 3 hours prior to surgery with a maximum of 20 ounces. -No food from midnight until time of surgery and no smoking, or chewing tobacco (or any form of nicotine). No chewing gum, candy or mints. Take only the following medications with a SIP of water on the morning of surgery: _BUSPIRONE, KLONOPIN, TRINTELLIX, METOPROLOL, LAMICTAL, GABAPENTIN DO NOT STOP ANY OF YOUR OTHER PRESCRIPTION MEDICATIONS PRIOR TO SURGERY EXCEPT THE FOLLOWING Hold all vitamins and supplements for 3 days per anesthesiologist. Medications to discontinue per physician ___ALEVE, IBUPROFEN Date to take last dose___CHECK WITH ALKARMI RE: HOLDING OF NSAIDS Please no make-up, nail montenegrin, hairspray, perfume, deodorant, or body powder the day of surgery.? No jewelry (including any body piercings) or valuables the day of surgery, leave them at home.? Please take a shower or bath the night before, or the morning of, surgery with an antibacterial soap.? Wear comfortable, loose fitting clothing.? - Jewelry must be removed prior to entering the operating room.? Rings and piercings that are not removed may be cut off. - The hospital will not accept responsibility for valuables.? - Please leave all valuables, including medications, at home the day of surgery. If you are going home after surgery, a licensed medical van driver must drive you home.? - NO public transportation without another adult if you receive anesthesia. - We recommend that an adult stay with you for 24 hours following discharge. - We also recommend that you do not drive, make important decision, drink alcoholic beverages, or take any drugs that were not prescribed by your health care provider for at least 24 hours after your discharge time. Follow any additional instructions given to you from your surgeon. Telephone instructions given to __TAYLOR and asked if any additional questions and then verbalized understanding. Patient advised to call surgeon office or pre surgery nurse liaison [phone] if any additional questions.
[2025-02-07] VITALS (10 sets, daily range): BP systolic 113–147; BP diastolic 73–93; PULSE 54–107; RESP 16–20; TEMP 36.3–36.6; O2SAT 98–100
--- NOTE | 2025-02-07 06:18 | WPDANESEPPF ---
Anes - Initial Pre Proc Eval Procedure: Operation Date: 02/07/25 07:30 Proposed Procedures p Right Eustachian Tube Dilation, - Nadir Loera MD s Possible Septoplasty - Nadir Loera MD Date/Time: 02/07/25 06:18 Surgeon: Nadir Loera MD Pre Op Diagnosis: otalgia, eustachian tube disorder right ear Patient Data Age: 29 Gender: F Height: 1.73 m Weight: 126.8 kg Allergies Allergy/AdvReac Type Severity Reaction Status Date / Time codeine Allergy Unknown Palpitation Verified 01/23/25 15:45 s insulin glargine (From AdvReac Unknown severe Verified 01/23/25 15:45 Lantus U-100 Insulin) bruising Home Medications ?Medication ?Instructions ?Recorded ?Confirmed ?Type ibuprofen 800 mg tablet 800 mg PO TID PRN pain #30 tabs 12/27/20 01/23/25 Rx gabapentin 300 mg capsule 300 mg PO TID 05/12/21 01/23/25 History calcium carbonate (Tums) 200 mg PO BID 09/28/21 01/23/25 History etonogestrel 68 mg subdermal 1 implant subdermal ONCE 01/04/23 01/23/25 History implant (Nexplanon) acetone (urine) test (Ketone Urine #100 ea 01/30/23 01/06/25 Rx Test strips) atorvastatin 80 mg tablet 80 mg PO DAILY #90 tabs 01/30/23 01/23/25 Rx blood-glucose,solar power installer,cont #1 ea 01/30/23 01/06/25 Rx (Dexcom G6 Auto Overhauler) lancets 33 gauge (OneTouch Delica #100 ea 01/30/23 01/06/25 Rx Plus Lancet) montelukast 10 mg tablet 10 mg PO QHS #90 tabs 07/24/23 01/23/25 Rx (Singulair) glucagon 1 mg/0.2 mL subcutaneous 1 mg (0.2 mL) subcut ONCE #0.4 mL 08/01/23 01/23/25 Rx auto-injector (Gvoke HypoPen 2-Pack) lamotrigine 200 mg tablet 200 mg PO BID #60 tabs 08/14/23 01/23/25 Rx OneTouch Verio test strips (blood #400 ea 08/23/23 01/06/25 Rx sugar diagnostic) blood sugar diagnostic (Accu-Chek #300 ea 11/02/23 01/06/25 Rx Guide test strips) blood-glucose meter (Accu-Chek #1 ea 11/02/23 01/06/25 Rx Guide Glucose Meter) lancets (Accu-Chek Softclix #300 ea 11/02/23 01/06/25 Rx Lancets) lancing device with lancets kit #1 ea 11/02/23 01/06/25 Rx (Accu-Chek Softclix Lancing Device+Lancets kit) pantoprazole 40 mg tablet,delayed 40 mg PO BID #60 tabs 11/07/23 01/23/25 Rx release metoprolol succinate 25 mg 25 mg PO DAILY #90 tabs 11/30/23 01/23/25 Rx tablet,extended release 24 hr (Toprol XL) albuterol sulfate 90 mcg/actuation 1 inh inhalation Q4H PRN 02/23/24 01/23/25 Rx aerosol inhaler bronchospasm #17 grams fluticasone propionate 115 2 puff inhalation BID #12 grams 02/23/24 01/23/25 Rx mcg-salmeterol 21 mcg/actuation HFA inhaler (Advair HFA) insulin pump cart,automated,BT #45 ea 04/11/24 01/06/25 Rx blood-glucose sensor (Dexcom G6 #9 ea 04/16/24 01/06/25 Rx Sensor device) blood-glucose transmitter (Dexcom #3 ea 04/16/24 01/06/25 Rx G6 Transmitter device) insulin lispro 100 unit/mL 120 unit (1.2 mL) continuous 04/16/24 01/23/25 Rx subcutaneous solution (Humalog subcutaneous infusion DAILY 90 U-100 Insulin) days #110 mL clonazepam 1 mg tablet 1 mg PO TID 05/05/24 01/23/25 History vortioxetine 20 mg tablet 20 mg PO DAILY 05/05/24 01/23/25 History (Trintellix) lisinopril 5 mg tablet See Rx Instructions .Route 06/27/24 01/23/25 Rx .COMPLEX #90 tabs diclofenac sodium 1 % topical gel 4 g topical QID thigh #100 grams 07/22/24 01/23/25 Rx (Voltaren Arthritis Pain) Held on 01/23/25. Instructions: Patient no longer taking tramadol 50 mg tablet 50 mg PO Q8H PRN pain #20 tabs 07/22/24 01/23/25 Rx promethazine 25 mg tablet 25 mg PO BID PRN nausea and 08/18/24 01/23/25 Rx vomiting #30 tabs naproxen 500 mg tablet 500 mg PO BID PRN pain #60 tabs 10/23/24 01/23/25 Rx Held on 01/23/25. Instructions: Patient no longer taking azelastine 137 mcg (0.1 %) nasal 1 spray intranasal Q12H 30 days 10/28/24 01/23/25 Rx spray #30 mL ezetimibe 10 mg tablet 10 mg PO DAILY #30 tabs 01/02/25 01/23/25 Rx cholecalciferol (vitamin D3) 1,250 1,250 mcg PO WEEKLY #14 tabs 01/03/25 01/23/25 Rx mcg (50,000 unit) tablet fluticasone propionate 50 2 spray intranasal DAILY #16 grams 01/06/25 01/23/25 Rx mcg/actuation nasal spray,suspension (Flonase Allergy Relief) buspirone 10 mg tablet 10 mg PO PRN DIGESTION 01/23/25 01/23/25 History ondansetron 4 mg disintegrating 4 mg PO DAILY PRN nausea and 01/23/25 01/23/25 History tablet vomiting Patient hx anesthesia problems: none Family hx anesthesia problems: none Results Review: All pre-operative results and documents have been reviewed as part of the pre-operative evaluation. [facility] Past Medical History Medical History Diabetic polyneuropathy Seizure disorder Gas bloat syndrome Early satiety Irritable bowel syndrome with constipation Chronic nausea Blood in mouth of unknown source Morbid obesity Pelvic mass in female Long-term insulin use Type 1 diabetes mellitus without complication Thoracic sprain Paronychia of left middle finger Noncompliance Nausea Diabetic ketoacidosis Cellulitis Bloating Bladder stone Bipolar depression Anxiety Alternating constipation and diarrhea Acute cystitis without hematuria Acute bilateral low back pain without sciatica H/O nephrolithotomy with removal of calculi Depression Nexplanon in place Gastric dysmotility Type 1 diabetes mellitus with hyperglycemia, with long-term current use of insulin Hyperlipidemia, unspecified (03/12/18) Albuminuria H/O renal calculi Hepatomegaly 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 Other Family history of hearing loss Family history of malignant neoplasm Family history of obesity Family history of osteoporosis Social History Social History Social History: Caffeine- daily Smoking packs per day: 0 Smoking cigarettes per day: 0.0 Years smoked: 0 Smoking pack-years: 0.00 Smoking status: Never smoker Second hand tobacco smoke exposure: Yes Alcohol intake: current Alcohol use details: maybe 3-4 times a year Substance use: current Substance use type: marijuana Other substance usage details: SMOKING AND INFUSED COCKTAILS Do You Feel Safe in your Home?: Yes Lack of Transportation: YES Lack of Food: Sometimes True Current Housing: I Have Housing Concerned About Future Housing: Decline to Answer Difficulty Paying Gas/Electric Bills: YES Difficulty Paying for Meds: No Currently Unemployed: Decline to Answer Education: High School Diploma/GED Difficulty w/ Childcare or Family Care: No Living arrangements: with family Occupation/Education: other Additional occupation/education comments: Disabled Gender identity (if verbalized by the patient): Female Spiritual care concerns: No Anes - Eval Final PreProcedure Day of Procedure 02/07/25 06:18 Patient weight: morbidly obese Heart: regular rate and rhythm Lungs: decreased breath sounds Airway: Mallampati scale class II Neurological: alert and oriented Last oral intake: >/= 8 hours ASA classification: III Emergent: no Anesthetic plan: proceed Anesthesia type and monitoring: general ETT and standard monitoring Results Review: All pre-operative results and documents have been reviewed as part of the pre-operative evaluation. Informed Consent: The patient's anesthetic plan and its attendant risks and benefits were discussed with the patient/family/POA. Questions were solicited and answers provided to the satisfaction of the patient/family/POA.
[2025-02-07] MEDS: OXYMETAZOLINE HCL 0.05% NAS 15 ML BTL (*BKC) 2 SPRAY NASAL ×3 (06:45→06:55)
[2025-02-07] MEDS: LACTATED RINGERS 1,000 ML 30 ML IV CONT ×2 (06:45→09:25)
--- NOTE | 2025-02-07 07:08 | WPDHPUPDATE1 ---
History and Physical Update Update Date/Time: 02/07/25 07:08 History and Physical has been reviewed, including an updated exam of the patient. There are NO changes in the patient's condition. Risks, benefits, and alternatives have been discussed and questions answered. Patient agrees to proceed with procedure. PLan: Post septoplasty +right eustachian tube dilation
--- NOTE | 2025-02-07 07:10 | PM.IMHP ---
H&P: HPI History of Present Illness Date/Time: 02/07/25 07:10 Chief Complaint: right Eustachian tube dysfunction Review of Systems Review of Systems: All systems reviewed & are unremarkable except as noted in HPI and below Constitutional: Constitutional: Reports as per HPI ENT: Reports as per HPI Respiratory: Respiratory: Reports as per HPI Gastrointestinal: Gastrointestinal: Reports as per HPI [facility] Past Medical History Medical History Diabetic polyneuropathy Seizure disorder Gas bloat syndrome Early satiety Irritable bowel syndrome with constipation Chronic nausea Blood in mouth of unknown source Morbid obesity Pelvic mass in female Long-term insulin use Type 1 diabetes mellitus without complication Thoracic sprain Paronychia of left middle finger Noncompliance Nausea Diabetic ketoacidosis Cellulitis Bloating Bladder stone Bipolar depression Anxiety Alternating constipation and diarrhea Acute cystitis without hematuria Acute bilateral low back pain without sciatica H/O nephrolithotomy with removal of calculi Depression Nexplanon in place Gastric dysmotility Type 1 diabetes mellitus with hyperglycemia, with long-term current use of insulin Hyperlipidemia, unspecified (03/12/18) Albuminuria H/O renal calculi Hepatomegaly 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 Other Family history of hearing loss Family history of malignant neoplasm Family history of obesity Family history of osteoporosis Social History Social History Social History: Caffeine- daily Smoking packs per day: 0 Smoking cigarettes per day: 0.0 Years smoked: 0 Smoking pack-years: 0.00 Smoking status: Never smoker Second hand tobacco smoke exposure: Yes Alcohol intake: current Alcohol use details: maybe 3-4 times a year Substance use: current Substance use type: marijuana Other substance usage details: SMOKING AND INFUSED COCKTAILS Do You Feel Safe in your Home?: Yes Lack of Transportation: YES Lack of Food: Sometimes True Current Housing: I Have Housing Concerned About Future Housing: Decline to Answer Difficulty Paying Gas/Electric Bills: YES Difficulty Paying for Meds: No Currently Unemployed: Decline to Answer Education: High School Diploma/GED Difficulty w/ Childcare or Family Care: No Living arrangements: with family Occupation/Education: other Additional occupation/education comments: Disabled Gender identity (if verbalized by the patient): Female Spiritual care concerns: No Meds Home Medications and Allergies Home Medications ?Medication ?Instructions ?Recorded ?Confirmed ?Type ibuprofen 800 mg tablet 800 mg PO TID PRN pain #30 tabs 12/27/20 01/23/25 Rx gabapentin 300 mg capsule 300 mg PO TID 05/12/21 01/23/25 History calcium carbonate (Tums) 200 mg PO BID 09/28/21 01/23/25 History etonogestrel 68 mg subdermal 1 implant subdermal ONCE 01/04/23 01/23/25 History implant (Nexplanon) acetone (urine) test (Ketone Urine #100 ea 01/30/23 01/06/25 Rx Test strips) atorvastatin 80 mg tablet 80 mg PO DAILY #90 tabs 01/30/23 01/23/25 Rx blood-glucose,echo vascular technologist,cont #1 ea 01/30/23 01/06/25 Rx (Dexcom G6 Development Officer) lancets 33 gauge (OneTouch Delica #100 ea 01/30/23 01/06/25 Rx Plus Lancet) montelukast 10 mg tablet 10 mg PO QHS #90 tabs 07/24/23 01/23/25 Rx (Singulair) glucagon 1 mg/0.2 mL subcutaneous 1 mg (0.2 mL) subcut ONCE #0.4 mL 08/01/23 01/23/25 Rx auto-injector (Gvoke HypoPen 2-Pack) lamotrigine 200 mg tablet 200 mg PO BID #60 tabs 08/14/23 01/23/25 Rx OneTouch Verio test strips (blood #400 ea 08/23/23 01/06/25 Rx sugar diagnostic) blood sugar diagnostic (Accu-Chek #300 ea 11/02/23 01/06/25 Rx Guide test strips) blood-glucose meter (Accu-Chek #1 ea 11/02/23 01/06/25 Rx Guide Glucose Meter) lancets (Accu-Chek Softclix #300 ea 11/02/23 01/06/25 Rx Lancets) lancing device with lancets kit #1 ea 11/02/23 01/06/25 Rx (Accu-Chek Softclix Lancing Device+Lancets kit) pantoprazole 40 mg tablet,delayed 40 mg PO BID #60 tabs 11/07/23 01/23/25 Rx release metoprolol succinate 25 mg 25 mg PO DAILY #90 tabs 11/30/23 01/23/25 Rx tablet,extended release 24 hr (Toprol XL) albuterol sulfate 90 mcg/actuation 1 inh inhalation Q4H PRN 02/23/24 01/23/25 Rx aerosol inhaler bronchospasm #17 grams fluticasone propionate 115 2 puff inhalation BID #12 grams 02/23/24 01/23/25 Rx mcg-salmeterol 21 mcg/actuation HFA inhaler (Advair HFA) insulin pump cart,automated,BT #45 ea 04/11/24 01/06/25 Rx blood-glucose sensor (Dexcom G6 #9 ea 04/16/24 01/06/25 Rx Sensor device) blood-glucose transmitter (Dexcom #3 ea 04/16/24 01/06/25 Rx G6 Transmitter device) insulin lispro 100 unit/mL 120 unit (1.2 mL) continuous 04/16/24 01/23/25 Rx subcutaneous solution (Humalog subcutaneous infusion DAILY 90 U-100 Insulin) days #110 mL clonazepam 1 mg tablet 1 mg PO TID 05/05/24 01/23/25 History vortioxetine 20 mg tablet 20 mg PO DAILY 05/05/24 01/23/25 History (Trintellix) lisinopril 5 mg tablet See Rx Instructions .Route 06/27/24 01/23/25 Rx .COMPLEX #90 tabs diclofenac sodium 1 % topical gel 4 g topical QID thigh #100 grams 07/22/24 01/23/25 Rx (Voltaren Arthritis Pain) Held on 01/23/25. Instructions: Patient no longer taking tramadol 50 mg tablet 50 mg PO Q8H PRN pain #20 tabs 07/22/24 01/23/25 Rx promethazine 25 mg tablet 25 mg PO BID PRN nausea and 08/18/24 01/23/25 Rx vomiting #30 tabs naproxen 500 mg tablet 500 mg PO BID PRN pain #60 tabs 10/23/24 01/23/25 Rx Held on 01/23/25. Instructions: Patient no longer taking azelastine 137 mcg (0.1 %) nasal 1 spray intranasal Q12H 30 days 10/28/24 01/23/25 Rx spray #30 mL ezetimibe 10 mg tablet 10 mg PO DAILY #30 tabs 01/02/25 01/23/25 Rx cholecalciferol (vitamin D3) 1,250 1,250 mcg PO WEEKLY #14 tabs 01/03/25 01/23/25 Rx mcg (50,000 unit) tablet fluticasone propionate 50 2 spray intranasal DAILY #16 grams 01/06/25 01/23/25 Rx mcg/actuation nasal spray,suspension (Flonase Allergy Relief) buspirone 10 mg tablet 10 mg PO PRN DIGESTION 01/23/25 01/23/25 History ondansetron 4 mg disintegrating 4 mg PO DAILY PRN nausea and 01/23/25 01/23/25 History tablet vomiting Allergies Allergy/AdvReac Type Severity Reaction Status Date / Time codeine Allergy Unknown Palpitation Verified 01/23/25 15:45 s insulin glargine (From AdvReac Unknown severe Verified 01/23/25 15:45 Lantus U-100 Insulin) bruising Exam Const: General: cooperative, healthy appearing, comfortable, no acute distress, well developed, alert, awake and Physically active Orientation/consciousness: oriented to person, oriented to place, oriented to time and patient oriented x3 HENMT: Head: normocephalic and atraumatic Ears: external ears normal and EAC's normal Face/Nose/Sinus: Normal external nose present and Normal nares present Mouth: Yes Normal oral and palatal mucosa present, Yes lip normal and Yes tongue normal Other: right side dull tympanic membrane Eyes: General: appearance normal, both eyes and all related structures Neck: Neck: normal visual inspection, full ROM and trachea midline Resp: Effort & Inspection: normal respiratory effort and able to speak in complete sentences Cardio: Rate: regular rate Neuro: General: oriented to person, oriented to place, oriented to time and patient oriented x3 Assessment and Plan Assessment and plan (1) Dysfunction of right eustachian tube: Code(s): H69.91 - Unspecified Eustachian tube disorder, right ear Status: Acute Plan 49-year-old female with persistent eustachian tube dysfunction in the right side in spite of adequate medical treatment which included topical nasal sprays Procedure to be done is possible septoplasty +right-sided station tube dilatation A thorough discussion with the patient including physical exam findings,diagnosis and the treatment plan ,all questions were answered to the best of my knowledge ,patient agreed to the diagnosis ,and wanted to go ahead with the treatment plan.
[2025-02-07] MEDS: LIDO 1%/EPINEPHRINE 1:100,000 50 ML VIAL (07:26)
[2025-02-07] MEDS: COCAINE HCL (*CRX) 4% TOP SOLN 4 ML VIAL 1 APPLIC TOPICAL (07:26)
[2025-02-07] MEDS: TRANEXAMIC ACID 1,000MG/ISO100 1,000 MG/100 ML BAG 200 MG IVPB (07:28)
[2025-02-07 07:48] LABS: BEDSIDEPREGUCG Negative (Negative)
--- NOTE | 2025-02-07 08:38 | W.PM.PROC2 ---
Procedure Note - Detailed Date of Procedure 02/07/25 Pre-op Diagnosis otalgia, eustachian tube disorder right ear Post-op Diagnosis Other (Right Eustachian tube dysfunction +Hypertrophy of both inferior turbinates ) Procedure Performed ? Endoscopic septoplasty Eustachian tube dilation ,Right side . ? Bilateral inferior turbinate reduction (intramural (submucosal) ablation of the inferior turbinate.) Surgeon Nadir Loera MD Anesthesia General Findings Hypertrophy of nasal turbinates Description of Procedure The patient was seen in the preoperative area, informed consent was checked and confirmed. The patient was taken to the operating room, sedated and placed under general anesthesia with an endotracheal tube . Eyes were taped and were prepped and draped in the usual sterile fashion. We proceeded with submucosal inferior turbinate reduction, starting on the right side, a stab incision was made anterior mucosa of inferior turbinate. Submucosal pocket was created along the length of the inferior turbinate .Celon radiofrequency probe was introduced through the incision and was used to Shrink the hypertrophied soft tissue part with the outer layer intact . The residual inferior turbinate was then out fractured using Boies elevator. We proceeded to the left side. A stab incision was made on the anterior mucosa of inferior turbinate. Submucosal pocket was created along the length of the inferior turbinate .Celon radiofrequency probe was introduced through the incision and was used to Shrink the hypertrophied soft tissue part with the outer layer intact The residual inferior turbinate was then out fractured using Boies elevator. Attention was turned to the Eustachian tube opening on the right. The posterior nasal cavity was examined with zero-degree endoscope. Eustachian tube opening was visualized in the nasopharynx. ACCLARENT AERA? Eustachian Tube 6 mm Balloon device was guided into the Eustachian tube and dilated for 2 minute. The balloon was deflated and retracted traumatically into the guide. The Eustachian tube observed there was no trauma or bleeding. Estimated Blood Loss 2 (ml) Drains No Packing No Complications No immediate complications Condition Stable Disposition PACU [facility] Billing Surgery - Charge Forward: Surgery Billing
[2025-02-07] MEDS: fentaNYL CITRATE INJ (*CRX) 100 MCG/2 ML VIAL 25 MCG IV PUSH ×4 (08:55→09:04)
[2025-02-07] MEDS: IBUPROFEN 400 MG TABLET 800 MG PO (10:14)
[2025-02-07] MEDS: ONDANSETRON INJ 4 MG/2 ML VIAL IV PUSH (11:00)
== END 2025-02-07 11:23 | disposition home or self-care (01) ==
PROVIDERS: PCP Family Medicine; Visit Provider Otolaryngology Otolaryngology/Facial Plastic Surgery
PROC: (CPT 69705; principal; 2025-02-07 07:30)
PROC: (CPT 30520; 2025-02-07 07:30)
DX: H69.91 Unspecified Eustachian tube disorder, right ear (principal); J34.3 Hypertrophy of nasal turbinates; E78.5 Hyperlipidemia, unspecified; K21.9 Gastro-esophageal reflux disease without esophagitis; K58.1 Irritable bowel syndrome with constipation; F41.9 Anxiety disorder, unspecified; F32.A Depression, unspecified; E10.42 Type 1 diabetes mellitus with diabetic polyneuropathy; E10.10 Type 1 diabetes mellitus with ketoacidosis without coma; E10.49 Type 1 diabetes mellitus with other diabetic neurological complication; R80.9 Proteinuria, unspecified; R11.0 Nausea; F12.90 Cannabis use, unspecified, uncomplicated; E66.01 Morbid (severe) obesity due to excess calories; Z68.41 Body mass index [BMI] 40.0-44.9, adult; Z79.1 Long term (current) use of non-steroidal anti-inflammatories (NSAID); Z79.51 Long term (current) use of inhaled steroids; Z79.891 Long term (current) use of opiate analgesic; Z79.4 Long term (current) use of insulin; Z97.5 Presence of (intrauterine) contraceptive device; Z87.442 Personal history of urinary calculi; Z87.19 Personal history of other diseases of the digestive system; Z80.1 Family history of malignant neoplasm of trachea, bronchus and lung; Z82.49 Family history of ischemic heart disease and other diseases of the circulatory system
CPT/HCPCS: 69705; 30140; 82948; A9270; C1726; J0330; J1100; J1171; J2003; J2004; J2250; J2405; J2704; J3010; J3290; J7050; J7120